=== PATIENT | female | born 1955 | race Caucasian/White ===

== ENCOUNTER 2020-08-07 08:35 | Outpatient (REF) | payer OTHER, SELFPAY ==
[2020-08-07 09:44] LABS: MANUAL DIFF FLAG NO
[2020-08-07 10:05] LABS: Basophils Absolute Auto 0.1 X10*3/uL (0.0-0.2); Basophils Percent Auto 1.1 % (0-2); Eosinophils Absolute Auto 0.2 X10*3/uL (0.0-0.4); Eosinophils Percent Auto 3.2 % (0-4); Hematocrit 37.8 % (37-47); Hemoglobin 11.9 g/dl (12.0-16.0); Imm Gran Abs Auto 0.02 X10*3/uL (0.00-0.03); Imm Gran Pct Auto 0.4 % (0.0-0.4); Mean Corpuscular HGB Conc 31.5 g/dl (31.0-35.0); Mean Corpuscular Hemoglobin 28.3 pg (27.0-33.0); Mean Platelet Volume 10.3 fL (9.4-12.3); Monocytes Absolute Auto 0.4 X10*3/uL (0.1-1.2); Monocytes Percent Auto 7.1 % (2-11); Neutrophils Percent Auto 52.2 % (45-73); Platelet Count 289 X10*3/uL (160-400); Red Cell Distribution Width 13.8 % (11.0-16.0); White Blood Count 5.7 X10*3/uL (4.8-10.8)
[2020-08-07 10:55] LABS: Estimated Average Glucose 117 mg/dL; Hemoglobin A1c % 5.7 %
[2020-08-07 11:21] LABS: Alanine Aminotransferase 13 U/L (0-31); Albumin Level 4.1 g/dL (3.5-5.0); Alkaline Phosphatase 85 U/L (39-117); Anion Gap 12 (12-20); Aspartate Amino Transferase 18 U/L (5-31); Bilirubin Total 0.3 mg/dL (0.0-1.0); Blood Urea Nitrogen 23 mg/dL (9-16); Calcium 9.1 mg/dL (8.4-10.2); Carbon Dioxide 25 mmol/L (22-29); Chloride 107 mmol/L (96-108); Cholesterol 256 mg/dL; Estimated Glomerular Filt Rate > 60; Glucose Fasting 101 mg/dL (60-99); HDL Cholesterol 48 mg/dL; LDL Cholesterol Calculated 160 mg/dl; Potassium 4.2 mmol/l (3.3-5.1); Sodium 140 mmol/L (135-145); Total Protein 7.6 g/dL (6.5-8.0); Triglycerides 243 mg/dL
[2020-08-07 11:30] LABS: Creatinine Urine 223.07 mg/dL; Microalbum/Creatinine Ratio Ur 11.6 ug/mg cr
[2020-08-07 11:31] LABS: TSH reflex Free T4 6.28 mIU/mL (0.32-4.0)
[2020-08-07 12:18] LABS: Free T4 (Free Thyroxine) 0.79 ng/dL (0.71-1.85)
== END 2020-08-07 08:36 | disposition home or self-care (01) ==
LOC: HO.LAB 08:35
PROVIDERS: PCP Physician Assistant; Visit Provider Physician Assistant
DX: Z13.220 Encounter for screening for lipoid disorders (principal)
CPT/HCPCS: 36415; 80053; 80061; 82043; 83036; 84439; 84443; 85025

== ENCOUNTER 2020-09-10 08:43 | Outpatient (REF) | payer OTHER, SELFPAY ==
--- NOTE | 2020-09-10 08:46 | US_ITS ---
EXAMINATION: US ABDOMEN COMPLETE CLINICAL INFORMATION: Right upper quadrant pain. COMPARISON: CT abdomen and pelvis 02/27/2019. TECHNIQUE: Real-time imaging of the abdominal viscera. FINDINGS: PANCREAS: Most the pancreas is obscured by overlying gas. Partially visualized body of the pancreas is homogeneous echotexture. ABDOMINAL AORTA: The proximal, mid, and distal segments are normal in caliber. INFERIOR VENA CAVA: Visualized portions are normal. LIVER: The liver is normal in size. The liver contour is normal. There is increased liver echogenicity. No focal hepatic lesion. There is no intrahepatic biliary duct dilatation seen. GALLBLADDER: Surgically absent. COMMON BILE DUCT: Normal in caliber measuring 0.6 cm in diameter. RIGHT KIDNEY: Normal. No hydronephrosis. No renal calculi or focal parenchymal lesions. The kidney measures 9.5 cm in maximum dimension. LEFT KIDNEY: Normal. No hydronephrosis. No renal calculi or focal parenchymal lesions. The kidney measures 9.3 cm in maximum dimension. SPLEEN: Normal. The spleen measures 9.0 cm in maximum dimension. FREE FLUID: None.. Imaging through the area of right upper quadrant pain where patient complains there is no hernia seen. US/US abdomen complete IMPRESSION: Hepatic steatosis without focal lesions seen. Rest of the abdominal ultrasound is unremarkable.
== END 2020-09-10 08:44 | disposition home or self-care (01) ==
LOC: HO.US 08:43
PROVIDERS: PCP Physician Assistant; Visit Provider Physician Assistant
DX: R10.11 Right upper quadrant pain (principal)
CPT/HCPCS: 76700

== ENCOUNTER 2020-09-30 13:47 | Outpatient (REF) | payer OTHER, SELFPAY | END 2020-09-30 13:48 | disposition home or self-care (01) | LOC: HO.LAB 13:47 | PROVIDERS: PCP Physician Assistant; Visit Provider Internal Medicine | DX: Z20.828 Contact with and (suspected) exposure to other viral communicable diseases (principal) | CPT/HCPCS: C9803; U0003 ==

== ENCOUNTER 2020-10-19 07:39 | Outpatient (REF) | payer OTHER, SELFPAY ==
--- NOTE | 2020-10-19 07:41 | MM_ITS ---
EXAMINATION: MM SCREENING DIGITAL BREAST TOMOSYNTHESIS, BILATERAL CLINICAL INFORMATION: Screening. Asymptomatic. The lifetime risk of breast cancer based on the Tyrer-Cuzick Model is 5%. COMPARISON: Mammography: 01/27/2019, 08/27/2007 TECHNIQUE: Digital breast tomosynthesis is performed in both the craniocaudal and mediolateral oblique views along with computer-aided detection (CAD). Synthesized 2D images are generated from the tomosynthesis. FINDINGS: The breasts are heterogeneously dense, which may obscure small masses (ACR BI-RADS breast composition Category c). There are no significant masses, abnormal calcifications, or other abnormalities. There are no significant changes. The axilla and skin contours are unremarkable. MM/MM tomosynthesis screening BI IMPRESSION: No mammographic evidence of malignancy. ASSESSMENT: BI-RADS 1: Negative RECOMMENDATION: Routine annual mammography screening. This patient's information was entered into a reminder system with a target due date for their next mammogram.
== END 2020-10-19 07:40 | disposition home or self-care (01) ==
LOC: HO.MAMMO 07:39
PROVIDERS: PCP Physician Assistant; Visit Provider Physician Assistant
DX: Z12.31 Encounter for screening mammogram for malignant neoplasm of breast (principal)
CPT/HCPCS: 77063; 77067

== ENCOUNTER 2021-03-03 06:02 | Outpatient (REF) | payer OTHER, SELFPAY ==
[2021-03-03 07:05] LABS: Hematocrit 36.4 % (37-47); Hemoglobin 11.5 g/dl (12.0-16.0); Mean Corpuscular HGB Conc 31.6 g/dl (31.0-35.0); Mean Corpuscular Hemoglobin 27.5 pg (27.0-33.0); Mean Corpuscular Volume 87.1 fL (80-98); Mean Platelet Volume 10.1 fL (9.4-12.3); Platelet Count 284 X10*3/uL (160-400); Red Blood Count 4.18 X10*6/uL (4.20-5.50); Red Cell Distribution Width 14.1 % (11.0-16.0); White Blood Count 6.5 X10*3/uL (4.8-10.8)
[2021-03-03 07:21] LABS: Alanine Aminotransferase 12 U/L (0-31); Albumin Level 4.1 g/dL (3.5-5.0); Alkaline Phosphatase 105 U/L (39-117); Anion Gap 13 (12-20); Aspartate Amino Transferase 17 U/L (5-31); Bilirubin Total 0.2 mg/dL (0.0-1.0); Blood Urea Nitrogen 15 mg/dL (9-16); Calcium 9.1 mg/dL (8.4-10.2); Carbon Dioxide 26 mmol/L (22-29); Chloride 107 mmol/L (96-108); Cholesterol 244 mg/dL; Estimated Glomerular Filt Rate > 60; Glucose Fasting 106 mg/dL (60-99); HDL Cholesterol 45 mg/dL; LDL Cholesterol Calculated 148 mg/dl; Potassium 3.7 mmol/L (3.3-5.1); Sodium 142 mmol/L (135-145); Total Protein 7.4 g/dL (6.5-8.0); Triglycerides 259 mg/dL
[2021-03-03 07:34] LABS: Creatinine Urine 146.62 mg/dL; Microalbum/Creatinine Ratio Ur 7.5 ug/mg cr
[2021-03-03 07:44] LABS: TSH reflex Free T4 9.34 uIU/mL (0.32-4.0)
[2021-03-03 08:23] LABS: Free T4 (Free Thyroxine) 0.84 ng/dL (0.71-1.85)
== END 2021-03-03 06:03 | disposition home or self-care (01) ==
LOC: HO.LAB 06:02
PROVIDERS: PCP Physician Assistant; Visit Provider Physician Assistant
DX: I10 Essential (primary) hypertension (principal); E03.9 Hypothyroidism, unspecified
CPT/HCPCS: 36415; 80053; 80061; 82043; 84439; 84443; 85027

== ENCOUNTER 2021-04-03 02:39 | Emergency (ER) | payer OTHER, SELFPAY ==
--- NOTE | ~2021-04-03 | CT_ITS ---
EXAMINATION: CT ABDOMEN AND PELVIS WITH CONTRAST CLINICAL INFORMATION: Right-sided abdominal pain COMPARISON: 02/27/2019 TECHNIQUE: Multidetector volumetric images were obtained from the superior aspect of the liver through the pubic symphysis following administration 85 mL of Omnipaque 350 intravenous contrast. Sagittal and coronal reformatted images were obtained on the technologist's workstation. Oral contrast: No This CT examination was performed using dose optimization techniques as appropriate, variously including the following: *Automated exposure control *Adjustment of mA and/or kV according to patient size (this includes techniques or standardized protocols for targeted exams where dose is matched to indication/reason for exam; i.e. extremities or head) *Use of iterative reconstruction technique DLP: 552 mGy-cm FINDINGS: LUNG BASES: The visualized lung bases are unremarkable. LIVER, GALLBLADDER, AND BILIARY TREE: The liver is normal in size, shape, and attenuation. No focal hepatic lesion or biliary ductal dilatation is present. Cholecystectomy. PANCREAS: Fatty atrophy. No pancreatic mass or inflammation. SPLEEN: Unremarkable. ADRENAL GLANDS: Unremarkable. KIDNEYS AND URETERS: The kidneys are normal in size, shape, and attenuation. No hydronephrosis, hydroureter, or calculi seen. No perinephric stranding. BLADDER: Unremarkable. GASTROINTESTINAL TRACT: There are multiple loops of ileum demonstrating what appears represent mucosal thickening, hyperemia and areas of submucosal edema suggestive of enteritis. The involved segment of small bowel are largely contiguous, beginning in the left midabdomen, and continuing throughout the ileum. Scattered colonic diverticula without evidence of diverticulitis.. Normal appendix. Small sliding-type hiatal hernia. ABDOMINAL WALL: No significant hernia is appreciated. LYMPH NODES: Normal. VASCULAR: Aorta is atherosclerotic but normal caliber. Patent venous structures. PELVIC VISCERA: Hysterectomy. No adnexal abnormalities. OSSEOUS STRUCTURES: Unremarkable. CT/CT abdomen pelvis w con IMPRESSION: * Multiple loops of ileum demonstrate mild wall thickening, mucosal hyperemia and submucosal edema suggestive of enteritis, which could be infectious or inflammatory nature. * Scattered colonic diverticula without evidence of diverticulitis.
[2021-04-03 02:57] VITALS: BP 178/108; PULSE 106; RESP 16; TEMP 36.8; O2SAT 97; BMI 30.2
[2021-04-03 03:15] VITALS: BP 165/89
--- NOTE | 2021-04-03 03:22 | ED.ABDPAIN ---
HPI - Abdominal Pain General Chief Complaint: Abdominal Pain Stated Complaint: Abd pain/Vomiting Time Seen by Provider: 04/03/21 03:14 Source: patient Mode of arrival: ambulatory History of Present Illness HPI narrative: Is a 65-year-old female with history hypertension and status post cholecystectomy/hernia repair several years ago who presents with acute onset multiple episodes of nonbloody diarrhea at 12:30 p.m. combined with significant abdominal pain. Patient states that she tried to become comfortable but then began having multiple episodes of nonbloody nausea and vomiting. She denies any associated fever, shortness breath, chest pain/palpitations, history of renal colic, or urinary pain/burning/frequency. Related Data Previous Rx's Medication Instructions Recorded famotidine 40 mg tablet 40 mg PO BEDTIME #30 tab 10/04/20 cetirizine 10 mg tablet 10 mg PO DAILY #20 tab 10/30/20 amlodipine 10 mg tablet 10 mg PO DAILY 90 Days #90 tab 02/27/21 levothyroxine 75 mcg tablet 75 mcg PO DAILY 90 Days #90 tab 02/27/21 levothyroxine 100 mcg tablet 100 mcg PO DAILY 30 Days #30 tab 03/03/21 ondansetron HCl [Zofran] 4 mg PO Q8H PRN #7 tab 04/03/21 Allergies Allergy/AdvReac Type Severity Reaction Status Date / Time lisinopril Allergy Unknown shortness Verified 02/27/21 12:03 of breath coconut Allergy Unknown diarrhea, Uncoded 10/04/20 10:57 vomiting Review of Systems Review of Systems Pertinent positives and negatives as stated in HPI 10 point review systems is otherwise negative. Physical Exam Vital Signs: Vital Signs: Last Vital Signs Temp 98.2 F 04/03/21 02:57 Pulse 85 04/03/21 05:51 Resp 18 04/03/21 05:51 BP 122/69 04/03/21 05:51 Pulse Ox 95 04/03/21 05:51 Body Mass Index 30.2 VITAL SIGNS: Reviewed. GENERAL: Well developed, well nourished, in no acute distress. HEAD: Normocephalic/atraumatic EYES: PERRLA, EOMI OROPHARYNX: no oral lesions noted, posterior pharynx clear NECK: Supple, no adenopathy LUNGS: Normal breath sounds. No adventitious sounds or accessory muscle use. SpO2<97> CARDIOVASCULAR: Regular rate and rhythm without noted murmurs ABDOMEN: Soft, tenderness in right abdomen without rebound, non-distended with bowel sounds. . SKIN: Inspection of the skin reveals no rashes NEUROLOGIC: Alert and oriented x 4. Course Course Course Narrative: 65-year-old female with history and clinical presentation suggestive gastroenteritis, renal colic, and less likely diverticulitis, hernia, or SBO. Review of all investigations consistent with gastroenteritis/food poisoning. On further investigation patient states she was the only 1 who had store by chicken soup. On re-evaluation patient is already feeling better and will undergo a p.o. challenge prior to discharge. 0617: On re-evaluation patient feels much better, and has tolerated oral intake. She will be discharged in stable condition. MDM - Abdominal Pain Lab Data Result diagrams: 04/03/21 03:32 04/03/21 03:32 Labs: Lab Results 04/03/21 04/03/21 04/03/21 Range/Units 03:32 03:32 04:21 WBC 12.5 H (4.8-10.8) X10*3/uL RBC 4.86 (4.20-5.50) X10*6/uL Hgb 13.5 (12.0-16.0) g/dl Hct 41.0 (37-47) % MCV 84.4 (80-98) fL MCH 27.8 (27.0-33.0) pg MCHC 32.9 (31.0-35.0) g/dl RDW 14.1 (11.0-16.0) % Plt Count 343 (160-400) X10*3/uL MPV 10.2 (9.4-12.3) fL Immature Gran % (Auto) 0.3 (0.0-0.4) % Neut % (Auto) 65.1 (45-73) % Lymph % (Auto) 27.5 (20-40) % [place] % (Auto) 4.8 (2-11) % Eos % (Auto) 1.7 (0-4) % Baso % (Auto) 0.6 (0-2) % Lymph # (Auto) 3.4 (1.2-4.9) X10*3/uL [place] # (Auto) 0.6 (0.1-1.2) X10*3/uL Eos # (Auto) 0.2 (0.0-0.4) X10*3/uL Baso # (Auto) 0.1 (0.0-0.2) X10*3/uL Abs Immat Gran (auto) 0.04 H (0.00-0.03) X10*3/uL Absolute Neuts (auto) 8.1 (2.0-8.3) X10*3/uL Absolute Nucleated RBC 0.000 (0.0-0.012) X10*3/uL Nucleated RBC % (auto) 0.0 (0.0-0.2) /100WBC Sodium 139 (135-145) mmol/L Potassium 4.0 (3.3-5.1) mmol/L Chloride 105 (96-108) mmol/L Carbon Dioxide 22 (22-29) mmol/L Anion Gap 16 (12-20) BUN 22 H (9-16) mg/dL Creatinine 0.92 (0.5-1.4) mg/dL Estim Creat Clear Calc 56.3 Estimated GFR > 60 Random Glucose 171 H (60-115) mg/dL Lactic Acid 1.9 (0.5-2.0) mmol/L Calcium 9.9 D (8.4-10.2) mg/dL Total Bilirubin 0.3 (0.0-1.0) mg/dL AST 21 (5-31) U/L ALT 18 (0-31) U/L Alkaline Phosphatase 124 H (39-117) U/L Total Protein 8.7 H (6.5-8.0) g/dL Albumin 4.7 (3.5-5.0) g/dL Lipase 42 (8-78) U/L Discharge Plan Discharge Clinical Impression: Gastroenteritis, Food poisoning Patient Disposition: Home, Self-Care Instructions: Gastroenteritis (ED), Food Poisoning (ED) Additional Instructions: Resume all home medications as prescribed. Follow-up with primary care provider in the next 2-3 days for re-evaluation. Return to the ER for acute worsening of symptoms. Prescriptions: New ondansetron HCl [Zofran] 4 mg tablet 4 mg PO Q8H PRN (Reason: nausea and vomiting) Qty: 7 RF: 0 No Action cetirizine 10 mg tablet 10 mg PO DAILY Qty: 20 RF: 3 levothyroxine 100 mcg tablet 100 mcg PO DAILY 30 Days Qty: 30 RF: 1 famotidine [Pepcid] 40 mg tablet 40 mg PO BEDTIME Qty: 30 RF: 2 levothyroxine 75 mcg tablet 75 mcg PO DAILY 90 Days Qty: 90 RF: 1 Hold Instructions: Doctor's Order amlodipine 10 mg tablet 10 mg PO DAILY 90 Days Qty: 90 RF: 1 Referrals: Jorge Madison PA-C [Primary Care Provider] - 2 days Print Language: Malay [facility] Past Medical History Source: nursing notes reviewed Medical History Rash due to allergy Surgical History History of cholecystectomy History of hernia repair Family History Family History Father Stomach cancer Skin cancer Mother Stroke Diabetes Hypertension Past heart attack Sister Diabetes Social History Social History Alcohol intake: never Smoked in Last 30 Days: No Use of substances other than those prescribed or required for medical reasons: No Advance Directives: No Advance Directives Information Provided: No Patient : No
[2021-04-03] MEDS: 0.9 % Sodium Chloride 1,000 ML 999 ML IV (03:27)
[2021-04-03] MEDS: ondansetron HCL 4 MG/2 ML VIAL IVPUSH (03:27)
[2021-04-03] MEDS: Ketorolac Tromethamine 15 MG/ML VIAL IVPUSH (03:27)
[2021-04-03 03:35] LABS: MANUAL DIFF FLAG NO
--- NOTE | 2021-04-03 03:35 | PC.NURSE ---
pt taken to ct.
[2021-04-03 03:36] LABS: Basophils Absolute Auto 0.1 X10*3/uL (0.0-0.2); Basophils Percent Auto 0.6 % (0-2); Eosinophils Absolute Auto 0.2 X10*3/uL (0.0-0.4); Eosinophils Percent Auto 1.7 % (0-4); Hemoglobin 13.5 g/dl (12.0-16.0); Imm Gran Abs Auto 0.04 X10*3/uL (0.00-0.03); Imm Gran Pct Auto 0.3 % (0.0-0.4); Lymphocytes Absolute Auto 3.4 X10*3/uL (1.2-4.9); Lymphocytes Percent Auto 27.5 % (20-40); Mean Corpuscular HGB Conc 32.9 g/dl (31.0-35.0); Mean Corpuscular Hemoglobin 27.8 pg (27.0-33.0); Mean Corpuscular Volume 84.4 fL (80-98); Mean Platelet Volume 10.2 fL (9.4-12.3); Monocytes Absolute Auto 0.6 X10*3/uL (0.1-1.2); Monocytes Percent Auto 4.8 % (2-11); Neutrophils Absolute Auto 8.1 X10*3/uL (2.0-8.3); Neutrophils Percent Auto 65.1 % (45-73); Platelet Count 343 X10*3/uL (160-400); Red Blood Count 4.86 X10*6/uL (4.20-5.50); Red Cell Distribution Width 14.1 % (11.0-16.0); White Blood Count 12.5 X10*3/uL (4.8-10.8)
[2021-04-03] MEDS: iohexoL 350 MG/ML 100 ML INFUS..BTL 85 ML IV (03:46)
[2021-04-03 04:00] VITALS: BP 127/78; PULSE 78; RESP 16; O2SAT 94
[2021-04-03 04:04] LABS: Alanine Aminotransferase 18 U/L (0-31); Albumin Level 4.7 g/dL (3.5-5.0); Alkaline Phosphatase 124 U/L (39-117); Anion Gap 16 (12-20); Aspartate Amino Transferase 21 U/L (5-31); Bilirubin Total 0.3 mg/dL (0.0-1.0); Blood Urea Nitrogen 22 mg/dL (9-16); Calcium 9.9 mg/dL (8.4-10.2); Carbon Dioxide 22 mmol/L (22-29); Chloride 105 mmol/L (96-108); Creatinine Clr Calc Pharmacy 56.3; Estimated Glomerular Filt Rate > 60; Glucose Random 171 mg/dL (60-115); Lipase 42 U/L (8-78); Sodium 139 mmol/L (135-145); Total Protein 8.7 g/dL (6.5-8.0)
[2021-04-03 04:40] LABS: Lactic Acid 1.9 mmol/L (0.5-2.0)
[2021-04-03 04:54] VITALS: RESP 16
[2021-04-03 05:51] VITALS: BP 122/69; PULSE 85; RESP 18; O2SAT 95
== END 2021-04-03 06:28 | disposition home or self-care (01) ==
PROVIDERS: Emergency Provider Student in an Organized Health Care Education/Training Program; PCP Physician Assistant
DX: A05.9 Bacterial foodborne intoxication, unspecified (principal); I10 Essential (primary) hypertension; Z79.899 Other long term (current) drug therapy; Z90.89 Acquired absence of other organs
CPT/HCPCS: 36415; 74177; 80053; 83605; 83690; 85025; 96361; 96374; 96375; 99284; J1885; J2405; Q9967

== ENCOUNTER 2021-11-03 13:30 | Outpatient (REF) | payer MEDICARE, SELFPAY ==
--- NOTE | ~2021-11-03 | MM_ITS ---
EXAMINATION: MM SCREENING DIGITAL BREAST TOMOSYNTHESIS, BILATERAL CLINICAL INFORMATION: Screening. Asymptomatic. The lifetime risk of breast cancer based on the Tyrer-Cuzick Model is 4%. COMPARISON: Mammography: 10/19/2020, 01/27/2019, 08/27/2007 TECHNIQUE: Digital breast tomosynthesis is performed in both the craniocaudal and mediolateral oblique views along with computer-aided detection (CAD). Synthesized 2D images are generated from the tomosynthesis. FINDINGS: The breasts are heterogeneously dense, which may obscure small masses (ACR BI-RADS breast composition Category c). There are no significant masses, abnormal calcifications, or other abnormalities. MM/MM tomosynthesis screening BI IMPRESSION: No mammographic evidence of malignancy. ASSESSMENT: BI-RADS 1: Negative RECOMMENDATION: Routine annual mammography screening. This patient's information was entered into a reminder system with a target due date for their next mammogram.
== END 2021-11-03 13:31 | disposition home or self-care (01) ==
LOC: HO.MAMMO 13:30
PROVIDERS: PCP Physician Assistant; Visit Provider Physician Assistant
DX: Z12.31 Encounter for screening mammogram for malignant neoplasm of breast (principal)
CPT/HCPCS: 77063; 77067

== ENCOUNTER 2021-12-25 14:16 | Outpatient (REF) | payer MEDICARE, SELFPAY ==
[2021-12-25 15:41] LABS: MANUAL DIFF FLAG NO
[2021-12-25 15:56] LABS: Basophils Absolute Auto 0.1 X10*3/uL (0.0-0.2); Basophils Percent Auto 0.7 % (0-2); Eosinophils Absolute Auto 0.1 X10*3/uL (0.0-0.4); Hematocrit 36.6 % (37.0-47.0); Hemoglobin 11.8 g/dl (12.0-16.0); Imm Gran Abs Auto 0.01 X10*3/uL (0.00-0.03); Imm Gran Pct Auto 0.1 % (0.0-0.4); Lymphocytes Absolute Auto 2.6 X10*3/uL (1.2-4.9); Lymphocytes Percent Auto 37.2 % (20-40); Mean Corpuscular HGB Conc 32.2 g/dl (31.0-35.0); Mean Corpuscular Hemoglobin 28.3 pg (27.0-33.0); Mean Corpuscular Volume 87.8 fL (80.0-98.0); Mean Platelet Volume 10.3 fL (9.4-12.3); Monocytes Absolute Auto 0.4 X10*3/uL (0.1-1.2); Monocytes Percent Auto 6.2 % (2-11); Neutrophils Absolute Auto 3.7 x10*3/uL (2.0-8.3); Neutrophils Percent Auto 53.8 % (45-73); Platelet Count 277 X10*3/uL (160-400); Red Blood Count 4.17 X10*6/uL (4.20-5.50); Red Cell Distribution Width 14.2 % (11.0-16.0); White Blood Count 6.9 X10*3/uL (4.8-10.8)
[2021-12-25 16:21] LABS: Alanine Aminotransferase 14 U/L (0-31); Albumin Level 4.1 g/dL (3.5-5.0); Alkaline Phosphatase 105 U/L (39-117); Anion Gap 12 (12-20); Aspartate Amino Transferase 22 U/L (5-31); Bilirubin Total 0.3 mg/dL (0.0-1.0); Blood Urea Nitrogen 18 mg/dL (9-16); C Reactive Protein 0.49 mg/dL (< or = 0.50); Calcium 9.6 mg/dL (8.4-10.2); Carbon Dioxide 26 mmol/L (22-29); Chloride 106 mmol/L (96-108); Estimated Glomerular Filt Rate > 60; Glucose Random 113 mg/dL (60-115); Potassium 4.1 mmol/L (3.3-5.1); Sodium 140 mmol/L (135-145); Total Protein 7.5 g/dL (6.5-8.0)
[2021-12-25 16:41] LABS: TSH reflex Free T4 2.15 uIU/mL (0.32-4.0); Thyroid Stimulating Hormone 2.37 uIU/mL (0.32-4.0)
[2021-12-25 16:53] LABS: Erythrocyte Sedimentation Rate 26 MM/HR (0-20)
[2021-12-25 17:11] LABS: Creatinine Urine 146.19 mg/dL; Microalbum/Creatinine Ratio Ur 10.2 ug/mg cr
[2021-12-26 21:01] LABS: Transglutaminase IgA <1.0 U/mL
[2021-12-31 16:37] LABS: Endomysial IgA Antibody Negative (Negative)
== END 2021-12-25 14:17 | disposition home or self-care (01) ==
LOC: HO.LAB 14:16
PROVIDERS: PCP Physician Assistant; Visit Provider Physician Assistant
DX: E03.9 Hypothyroidism, unspecified (principal); I10 Essential (primary) hypertension; K52.9 Noninfective gastroenteritis and colitis, unspecified; R11.0 Nausea; K59.09 Other constipation
CPT/HCPCS: 36415; 80053; 82043; 84443; 85025; 85652; 86140; 86231; 86364; 99202

== ENCOUNTER 2021-12-26 09:59 | Outpatient (REF) | payer MEDICARE, SELFPAY ==
[2022-01-01 22:02] LABS: Calprotectin, Fecal 11 mcg/g
== END 2021-12-26 10:00 | disposition home or self-care (01) ==
LOC: HO.LNP 09:59
PROVIDERS: Visit Provider Physician Assistant
DX: R19.7 Diarrhea, unspecified (principal)
CPT/HCPCS: 83993

== ENCOUNTER 2022-04-18 21:01 | Emergency (ER) | payer MEDICARE, MEDICAID, SELFPAY ==
--- NOTE | ~2022-04-18 | CT_ITS ---
EXAMINATION: CT ABDOMEN AND PELVIS WITHOUT CONTRAST CLINICAL INFORMATION: Left lower abdominal pain. Rule out diverticulitis. COMPARISON: 04/03/2021 TECHNIQUE: Multidetector volumetric imaging was performed from the superior aspect of the liver through the pubic symphysis. Sagittal and coronal reformatted images were obtained on the technologist's workstation. This CT examination was performed using dose optimization techniques as appropriate, variously including the following: *Automated exposure control *Adjustment of mA and/or kV according to patient size (this includes techniques or standardized protocols for targeted exams where dose is matched to indication/reason for exam; i.e. extremities or head) *Use of iterative reconstruction technique DLP: 620 mGy-cm FINDINGS: LUNG BASES: The visualized lung bases are unremarkable. LIVER, GALLBLADDER, AND BILIARY TREE: The liver is normal in size, shape, and attenuation. No focal hepatic lesion or biliary ductal dilatation is present. Cholecystectomy. PANCREAS: Mild atrophy with no focal abnormality. SPLEEN: Unremarkable. ADRENAL GLANDS: Unremarkable. KIDNEYS AND URETERS: The kidneys are normal in size, shape, and attenuation. No hydronephrosis, hydroureter, or calculi seen. No perinephric stranding. BLADDER: Unremarkable. GASTROINTESTINAL TRACT: The stomach is unremarkable. Normal caliber small bowel. No obstruction. Normal appendix. There is colonic diverticulosis present. Wall thickening at the descending colon with adjacent inflammation, consistent with diverticulitis. No free air or free fluid. ABDOMINAL WALL: No significant hernia is appreciated. Prior ventral abdominal wall hernia repair. LYMPH NODES: Normal. VASCULAR: Normal caliber aorta with mild atherosclerotic calcification. PELVIC VISCERA: The uterus and adnexa are unremarkable. OSSEOUS STRUCTURES: No acute or suspicious osseous abnormality. CT/CT abdomen pelvis wo con IMPRESSION: Acute diverticulitis of the descending colon. No free air or fluid collection. Fleischner guidelines were followed.
[2022-04-18 21:10] VITALS: BP 185/89; PULSE 93; RESP 22; TEMP 36.8; O2SAT 96; BMI 30.2
[2022-04-18 21:23] LABS: MANUAL DIFF FLAG NO
[2022-04-18 21:32] LABS: Basophils Absolute Auto 0.1 X10*3/uL (0.0-0.2); Basophils Percent Auto 0.5 % (0-2); Eosinophils Absolute Auto 0.2 X10*3/uL (0.0-0.4); Eosinophils Percent Auto 1.9 % (0-4); Hematocrit 34.4 % (37.0-47.0); Hemoglobin 11.4 g/dl (12.0-16.0); Imm Gran Abs Auto 0.03 X10*3/uL (0.00-0.03); Imm Gran Pct Auto 0.3 % (0.0-0.4); Lymphocytes Absolute Auto 3.4 X10*3/uL (1.2-4.9); Lymphocytes Percent Auto 35.1 % (20-40); Mean Corpuscular HGB Conc 33.1 g/dl (31.0-35.0); Mean Corpuscular Hemoglobin 28.7 pg (27.0-33.0); Mean Corpuscular Volume 86.6 fL (80.0-98.0); Mean Platelet Volume 9.9 fL (9.4-12.3); Monocytes Absolute Auto 0.5 X10*3/uL (0.1-1.2); Monocytes Percent Auto 4.6 % (2-11); Neutrophils Absolute Auto 5.6 x10*3/uL (2.0-8.3); Neutrophils Percent Auto 57.6 % (45-73); Platelet Count 286 X10*3/uL (160-400); Red Blood Count 3.97 X10*6/uL (4.20-5.50); Red Cell Distribution Width 14.1 % (11.0-16.0); White Blood Count 9.8 X10*3/uL (4.8-10.8)
[2022-04-18 21:39] LABS: Appearance Urine CLEAR; Color Urine YELLOW; Glucose Urine UA NEG (NEG); Leukocyte Esterase Urine TRACE (NEG); Nitrite Urine NEG (NEG); Specific Gravity - Urine <= 1.005 (1.005-1.025); UACC Culture Trigger NO; Urine Blood TRACE (NEG); Urine Ketones NEG (NEG); Urine Protein NEG (NEG-TRACE)
[2022-04-18 21:53] LABS: Alanine Aminotransferase 15 U/L (0-31); Albumin Level 4.1 g/dL (3.5-5.0); Alkaline Phosphatase 100 U/L (39-117); Anion Gap 13 (12-20); Aspartate Amino Transferase 19 U/L (5-31); Bilirubin Total 0.3 mg/dL (0.0-1.0); Blood Urea Nitrogen 12 mg/dL (9-16); Calcium 8.8 mg/dL (8.4-10.2); Carbon Dioxide 20 mmol/L (22-29); Chloride 106 mmol/L (96-108); Creatinine Clr Calc Pharmacy 60.1; Estimated Glomerular Filt Rate > 60; Glucose Random 159 mg/dL (60-115); Potassium 3.6 mmol/L (3.3-5.1); Sodium 135 mmol/L (135-145); Total Protein 7.6 g/dL (6.5-8.0)
[2022-04-18 22:01] LABS: Bacteria Urine TRACE /LPF; RBC Urine 0-2 /HPF (0); Squamous Epithelial Cell Urine TRACE /LPF; WBC Urine 0-2 /HPF (0-4)
--- NOTE | 2022-04-19 01:13 | ED.ABDPAIN ---
HPI - Abdominal Pain General Chief Complaint: Abdominal Pain Stated Complaint: L side pain for 24 hr, diarrhea Time Seen by Provider: 04/19/22 01:12 Source: patient Mode of arrival: ambulatory Limitations: no limitations History of Present Illness HPI narrative: 66-year-old female came in for evaluation of left lower quadrant pain. Pain started 2 days ago as a dull aching pain to the left lower quadrant pain is constant, no relieving factor, no aggravating factor, pain was associated with nonbloody watery diarrhea and nausea with vomiting, but no fever. Pain is dull aching pain severe 07/27. Never had similar pain in the past. Patient was past surgical history significant for cholecystectomy and right hernia repair. Related Data Previous Rx's Medication Instructions Recorded bisacodyl 5 mg tablet,delayed 10 mg PO ONCE colonoscopy prep 1 12/25/21 release (Dulcolax (bisacodyl)) day #2 tabs loperamide 2 mg capsule (Imodium 2 mg PO Q6H PRN loose stool #30 12/25/21 A-D) caps polyethylene glycol 3350 17 238 g PO ONCE 1 day #238 grams 12/25/21 gram/dose oral powder (Miralax) hydrocortisone 2.5 % topical cream 1 appl MA BEDTIME PRN hemorrhoids 12/26/21 with perineal applicator #30 grams (Proctosol HC) triamcinolone acetonide 0.1 % 1 appl topical BID 30 days #80 01/29/22 topical cream grams levothyroxine 100 mcg tablet 100 mcg PO DAILY #90 tabs 02/26/22 amlodipine 10 mg tablet 10 mg PO DAILY 90 days #90 tabs 04/01/22 ciprofloxacin HCl 500 mg tablet 500 mg PO BID #14 tabs 04/19/22 (Cipro) metronidazole 500 mg tablet 500 mg PO BID 14 days #28 tabs 04/19/22 Allergies Allergy/AdvReac Type Severity Reaction Status Date / Time lisinopril Allergy Unknown shortness Verified 04/18/22 21:10 of breath coconut Allergy Unknown diarrhea, Uncoded 04/18/22 21:10 vomiting Review of Systems Review of Systems All other systems are reviewed and are negative Constitutional: Reports as per HPI and Reports no additional constitutional complaints Eyes: Reports as per HPI and Reports no additional eye complaints Reports system reviewed and no additional complaints, except as documented Cardiovascular: Reports as per HPI and Reports no additional cardiovascular complaints Respiratory: Reports as per HPI and Reports no additional respiratory complaints Gastrointestinal: Reports as per HPI and Reports no additional gastrointestinal complaints Genitourinary: Reports no additional female genitourinary complaints Musculoskeletal: Reports no additional musculoskeletal complaints Skin/Breast: Reports system reviewed and no additional complaints, except as docu Psychiatric: Reports no additional psychiatric complaints Endocrine: Reports no additional endocrine complaints Hematologic/Lymphatic: Reports no additional hematologic/lymphatic complaints Allergic/Immunologic: Reports no additional allergic/immunologic complaints Reports system reviewed and no additional complaints, except as documented and Reports Abnormal speech present [facility] Past Medical History Medical History Abnormal CT of the abdomen Hypothyroid IBS (irritable bowel syndrome) Rash due to allergy Surgical History History of cholecystectomy History of hernia repair Family History Family History Father Stomach cancer Skin cancer Mother Stroke Diabetes Hypertension Past heart attack Sister Diabetes Daughter Colon cancer Social History Social History Housing: House Alcohol intake: never Patient Tobacco Use Status: Never used Tobacco Tobacco use type: Cigarette e-Cigarette/Vaping Use: Never Used Second Hand Smoke Exposure: No Advance Directives: No Advance Directives Information Provided: Yes Current occupational status: retired Cognitive needs: No Hearing needs: No Vision needs: Yes (Pt wears glasses.) Physical Exam ED Vital Signs: Vital Signs - 24 hr 04/18/22 21:10 04/19/22 02:00 Temperature 98.3 F 98.1 F Pulse Rate 93 76 Respiratory Rate 22 H 16 Blood Pressure 185/89 H 152/83 H Pulse Oximetry 96 99 Oxygen Delivery Method Room Air Room Air BMI result Body Mass Index 30.2 Vital signs have been reviewed as appeared to be correct. Blood pressure elevated. Heart rate normal. Respiration rate normal. Temperature normal. Oxygen saturation normal. Appearance: Alert. Oriented X3. No acute distress. Head: Normal external exam. Normocephalic. Atraumatic. No [place] signs noted. No raccoon eyes noted Eyes: PERRLA. EOMI. Conjunctiva and sclera normal. Eyelids normal. ENT: TM's Normal. Pharynx normal. Uvula midline. Moist mucous membranes. No trismus noted. No drooling noted. No muffled voice noted. Neck: Normal inspection. Neck supple. FROM. No adenopathy. Thyroid Normal. No meningeal signs. No neck mass noted. CVS: Normal heart rate and rhythm. Heart sound normal. No murmurs noted. Pulses normal throughout. Respiratory: No respiratory distress. Painless inspiration. Breath sounds normal. No wheezes/rales/rhonchi noted. Chest nontender. No accessory muscle usage noted or decreased air movement noted. Abdomen: Soft, mild left lower quadrant tenderness, no rebound tenderness, no guarding.. Bowel sounds normal in all 4 quadrants. No distention noted. No organomegaly noted. No visible injury noted. Back: No CVA tenderness. Full range of motion noted. Skin: Skin warm and dry. Normal skin color. Normal skin turgor. No rashes/lesions/lacerations noted. Extremities: No lower extremity edema. Extremities exhibit normal range of motion. Extremities nontender. Neuro: Oriented X 3. Cranial nerve exam: II-XII are grossly intact No motor deficit. No sensory deficit. Reflexes normal. Course Course Course Narrative: Assessment and plan. 66-year-old female came in with left lower quadrant abdominal pain, CT of the abdomen pelvis revealed diverticulitis, patient otherwise appears stable with stable vital signs. 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 MDM - Abdominal Pain Lab Data Attestation: I reviewed the patient's lab results. Result diagrams: 04/18/22 21:18 04/18/22 21:18 Labs: Lab Results 04/18/22 04/18/22 04/18/22 Range/Units 21:18 21:18 21:30 WBC 9.8 (4.8-10.8) X10*3/uL RBC 3.97 L (4.20-5.50) X10*6/uL Hgb 11.4 L (12.0-16.0) g/dl Hct 34.4 L (37.0-47.0) % MCV 86.6 (80.0-98.0) fL MCH 28.7 (27.0-33.0) pg MCHC 33.1 (31.0-35.0) g/dl RDW 14.1 (11.0-16.0) % Plt Count 286 (160-400) X10*3/uL MPV 9.9 (9.4-12.3) fL Immature Gran % (Auto) 0.3 (0.0-0.4) % Neut % (Auto) 57.6 (45-73) % Lymph % (Auto) 35.1 (20-40) % [place] % (Auto) 4.6 (2-11) % Eos % (Auto) 1.9 (0-4) % Baso % (Auto) 0.5 (0-2) % Lymph # (Auto) 3.4 (1.2-4.9) X10*3/uL [place] # (Auto) 0.5 (0.1-1.2) X10*3/uL Eos # (Auto) 0.2 (0.0-0.4) X10*3/uL Baso # (Auto) 0.1 (0.0-0.2) X10*3/uL Abs Immat Gran (auto) 0.03 (0.00-0.03) X10*3/uL Absolute Neuts (auto) 5.6 (2.0-8.3) x10*3/uL Absolute Nucleated RBC 0.000 (0.0-0.012) X10*3/uL Nucleated RBC % (auto) 0.0 (0.0-0.2) /100WBC Sodium 135 (135-145) mmol/L Potassium 3.6 (3.3-5.1) mmol/L Chloride 106 (96-108) mmol/L Carbon Dioxide 20 L (22-29) mmol/L Anion Gap 13 (12-20) BUN 12 (9-16) mg/dL Creatinine 0.85 (0.5-1.4) mg/dL Estim Creat Clear Calc 60.1 Estimated GFR > 60 Random Glucose 159 H (60-115) mg/dL Calcium 8.8 D (8.4-10.2) mg/dL Total Bilirubin 0.3 (0.0-1.0) mg/dL AST 19 (5-31) U/L ALT 15 (0-31) U/L Alkaline Phosphatase 100 (39-117) U/L Total Protein 7.6 (6.5-8.0) g/dL Albumin 4.1 (3.5-5.0) g/dL Urine Color YELLOW Urine Appearance CLEAR Urine pH 6.0 (5.0-8.0) Ur Specific [place] <= 1.005 (1.005-1.025) Urine Protein NEG (NEG-TRACE) MG/DL Urine Glucose (UA) NEG (NEG) MG/DL Urine Ketones NEG (NEG) MG/DL Urine Blood TRACE (NEG) Urine Nitrite NEG (NEG) Ur Leukocyte Esterase TRACE H (NEG) Urine RBC 0-2 (0) /HPF Urine WBC 0-2 (0-4) /HPF Ur Squamous Epith Cells TRACE /LPF Urine Bacteria TRACE /LPF Stool Occult Blood (NEGATIVE) 04/19/22 Range/Units 01:25 WBC (4.8-10.8) X10*3/uL RBC (4.20-5.50) X10*6/uL Hgb (12.0-16.0) g/dl Hct (37.0-47.0) % MCV (80.0-98.0) fL MCH (27.0-33.0) pg MCHC (31.0-35.0) g/dl RDW (11.0-16.0) % Plt Count (160-400) X10*3/uL MPV (9.4-12.3) fL Immature Gran % (Auto) (0.0-0.4) % Neut % (Auto) (45-73) % Lymph % (Auto) (20-40) % [place] % (Auto) (2-11) % Eos % (Auto) (0-4) % Baso % (Auto) (0-2) % Lymph # (Auto) (1.2-4.9) X10*3/uL [place] # (Auto) (0.1-1.2) X10*3/uL Eos # (Auto) (0.0-0.4) X10*3/uL Baso # (Auto) (0.0-0.2) X10*3/uL Abs Immat Gran (auto) (0.00-0.03) X10*3/uL Absolute Neuts (auto) (2.0-8.3) x10*3/uL Absolute Nucleated RBC (0.0-0.012) X10*3/uL Nucleated RBC % (auto) (0.0-0.2) /100WBC Sodium (135-145) mmol/L Potassium (3.3-5.1) mmol/L Chloride (96-108) mmol/L Carbon Dioxide (22-29) mmol/L Anion Gap (12-20) BUN (9-16) mg/dL Creatinine (0.5-1.4) mg/dL Estim Creat Clear Calc Estimated GFR Random Glucose (60-115) mg/dL Calcium (8.4-10.2) mg/dL Total Bilirubin (0.0-1.0) mg/dL AST (5-31) U/L ALT (0-31) U/L Alkaline Phosphatase (39-117) U/L Total Protein (6.5-8.0) g/dL Albumin (3.5-5.0) g/dL Urine Color Urine Appearance Urine pH (5.0-8.0) Ur Specific [place] (1.005-1.025) Urine Protein (NEG-TRACE) MG/DL Urine Glucose (UA) (NEG) MG/DL Urine Ketones (NEG) MG/DL Urine Blood (NEG) Urine Nitrite (NEG) Ur Leukocyte Esterase (NEG) Urine RBC (0) /HPF Urine WBC (0-4) /HPF Ur Squamous Epith Cells /LPF Urine Bacteria /LPF Stool Occult Blood NEGATIVE (NEGATIVE) Imaging Data Abdomen and pelvis CT.: Attestation: I personally reviewed and interpreted this imaging study as follows: Radiologist's impression: Acute diverticulitis of the descending colon. No free air or fluid collection.? ? Discharge Plan Discharge Clinical Impression: Diverticulitis, Abdominal pain Patient Disposition: Home, Self-Care Instructions: Diverticulitis (ED) Prescriptions: New ciprofloxacin HCl [Cipro] 500 mg tablet 500 mg PO BID Qty: 14 0RF metronidazole 500 mg tablet 500 mg PO BID 14 Days Qty: 28 0RF No Action levothyroxine 100 mcg tablet 100 mcg PO DAILY Qty: 90 1RF amlodipine 10 mg tablet 10 mg PO DAILY 90 Days Qty: 90 1RF triamcinolone acetonide 0.1 % cream 1 appl topical BID 30 Days Qty: 80 1RF bisacodyl [Dulcolax (bisacodyl)] 5 mg tablet,delayed release (DR/EC) 10 mg PO ONCE 1 Days Qty: 2 0RF Rx Instructions: Take 2 tablets by mouth at 12:00pm the day before your procedure. polyethylene glycol 3350 [Miralax] 17 gram/dose powder 238 g PO ONCE 1 Days Qty: 238 0RF Rx Instructions: Take as directed by mouth the day before your procedure. loperamide [Imodium A-D] 2 mg capsule 2 mg PO Q6H PRN (Reason: loose stool) Qty: 30 0RF Rx Instructions: Take 2 cap after 1st loose stool- One caplet after each subsequent loose stools No more than 4 caps in a 24 hour. hydrocortisone [Proctosol HC] 2.5 % cream with perineal applicator 1 appl MA BEDTIME PRN (Reason: hemorrhoids) Qty: 30 3RF Referrals: Jorge Madison PA-C [Primary Care Provider] - Zenon Dasilva MD [Physician] -
[2022-04-19 01:31] LABS: OBS Int Ctl Valid YES; OBS1 NEGATIVE (NEGATIVE)
[2022-04-19 02:00] VITALS: BP 152/83; PULSE 76; RESP 16; TEMP 36.7; O2SAT 99
== END 2022-04-19 04:05 | disposition home or self-care (01) ==
PROVIDERS: Emergency Provider Emergency Medicine; PCP Physician Assistant
DX: K57.32 Diverticulitis of large intestine without perforation or abscess without bleeding (principal); R10.32 Left lower quadrant pain; Z79.899 Other long term (current) drug therapy
CPT/HCPCS: 36415; 74176; 80053; 81001; 82272; 85025; 99283; 99284

== ENCOUNTER 2022-11-09 13:30 | Outpatient (REF) | payer MEDICARE, MEDICAID, SELFPAY ==
--- NOTE | ~2022-11-09 | MM_ITS ---
EXAMINATION: MM SCREENING DIGITAL BREAST TOMOSYNTHESIS, BILATERAL CLINICAL INFORMATION: Screening. Asymptomatic. The lifetime risk of breast cancer based on the Tyrer-Cuzick Model is 5.0%. COMPARISON: Mammography: November 03, 2021 and studies dating back to August 27, 2007 TECHNIQUE: Digital breast tomosynthesis is performed in both the craniocaudal and mediolateral oblique views along with computer-aided detection (CAD). Synthesized 2D images are generated from the tomosynthesis. FINDINGS: The breasts are heterogeneously dense, which may obscure small masses (ACR BI-RADS breast composition Category c). There are no significant masses, abnormal calcifications, or other abnormalities. MM/MM tomosynthesis screening BI IMPRESSION: No significant changes ASSESSMENT: BI-RADS 1: Negative RECOMMENDATION: Routine annual mammography screening. This patient's information was entered into a reminder system with a target due date for their next mammogram.
== END 2022-11-09 13:31 | disposition home or self-care (01) ==
LOC: HO.MAMMO 13:30
PROVIDERS: PCP Physician Assistant; Visit Provider Physician Assistant
DX: Z12.31 Encounter for screening mammogram for malignant neoplasm of breast (principal)
CPT/HCPCS: 77063; 77067

== ENCOUNTER 2023-02-10 06:05 | Outpatient (REF) | payer MEDICARE, MEDICAID, SELFPAY ==
--- NOTE | ~2023-02-10 | XR_ITS ---
EXAMINATION: XR LUMBOSACRAL SPINE CLINICAL INFORMATION: Low back pain COMPARISON: CT abdomen of 04/19/2022. TECHNIQUE: Three views of the lumbosacral spine. FINDINGS: There are 5 nonrib bearing lumbar vertebra. There is mild scoliosis convex right. No acute fracture, spondylolisthesis, or spondylolysis identified. There is significant joint space narrowing seen at the L4-L5, T12-L1 disc space level. Facet arthropathy is present right side L4-L5 and left L5-S1. Pedicles appear intact. Mesh is present. Numerous surgical clips are seen within the right upper quadrant. There is some marginal spurring of the sacroiliac joints without definite fusion or widening. XR/XR lumbar spine 2-3V IMPRESSION: Multilevel degenerative disc disease and facet arthropathy without evidence of acute fracture, spondylolisthesis, or spondylolysis.
[2023-02-10 07:19] LABS: Hematocrit 38.6 % (37.0-47.0); Hemoglobin 12.4 g/dl (12.0-16.0); Mean Corpuscular HGB Conc 32.1 g/dl (31.0-35.0); Mean Corpuscular Hemoglobin 28.1 pg (27.0-33.0); Mean Corpuscular Volume 87.5 fL (80.0-98.0); Mean Platelet Volume 10.5 fL (9.4-12.3); Platelet Count 284 X10*3/uL (160-400); Red Blood Count 4.41 X10*6/uL (4.20-5.50); Red Cell Distribution Width 13.8 % (11.0-16.0); White Blood Count 7.1 X10*3/uL (4.8-10.8)
[2023-02-10 07:45] LABS: Alanine Aminotransferase 20 U/L (0-31); Albumin Level 4.1 g/dL (3.5-5.0); Alkaline Phosphatase 97 U/L (39-117); Anion Gap 14 (12-20); Aspartate Amino Transferase 25 U/L (5-31); Bilirubin Total 0.4 mg/dL (0.0-1.0); Blood Urea Nitrogen 13 mg/dL (9-16); Calcium 8.9 mg/dL (8.4-10.2); Carbon Dioxide 27 mmol/L (22-29); Chloride 106 mmol/L (96-108); Cholesterol 268 mg/dL; Estimated Glomerular Filt Rate > 60; Glucose Fasting 109 mg/dL (60-99); HDL Cholesterol 48 mg/dL; LDL Cholesterol Calculated 171 mg/dl; Potassium 3.8 mmol/L (3.3-5.1); Sodium 143 mmol/L (135-145); Total Protein 7.4 g/dL (6.5-8.0); Triglycerides 247 mg/dL
[2023-02-10 08:03] LABS: TSH reflex Free T4 6.63 uIU/mL (0.32-4.0)
[2023-02-10 09:03] LABS: Creatinine Urine 203.51 mg/dL; Microalbum/Creatinine Ratio Ur 12.2 ug/mg cr
[2023-02-10 09:17] LABS: Free T4 (Free Thyroxine) 0.86 ng/dL (0.71-1.85)
== END 2023-02-10 06:06 | disposition home or self-care (01) ==
LOC: HO.LAB 06:05
PROVIDERS: PCP Physician Assistant; Visit Provider Physician Assistant
DX: I10 Essential (primary) hypertension (principal); E03.9 Hypothyroidism, unspecified; M54.50 Low back pain, unspecified
CPT/HCPCS: 36415; 72100; 80053; 80061; 82043; 84439; 84443; 85027

== ENCOUNTER 2023-04-26 14:18 | Outpatient (AMB) | payer MEDICARE, MEDICAID, SELFPAY ==
--- NOTE | 2023-04-26 14:22 | A.OFFVIS_ITS ---
Intake Vital Signs 04/26/23 14:23 Height 5 ft 1 in Weight 156 lb BMI 29.5 BP 124/58 L Blood Pressure Location Lt brachial Position Sitting Pulse 84 Intake Visit Reasons: follow up/ family polyps hx Intake Note: Patient follow up for lab and CT scan results. Patient cc: abdominal pain/bloating, GERD, diarrhea and no appetite. Meteorological Observer Required: No Accompanied by: Self / Same As Patient Allergies lisinopril Allergy (Unknown, Verified 04/26/23 14:22) shortness of breath coconut Allergy (Unknown, Uncoded 02/04/23 10:41) diarrhea, vomiting Medication List - Last Reconciled 05/03/23 by Fiona Gilbert PA-C amlodipine 10 mg PO DAILY 90 days bisacodyl (Dulcolax (bisacodyl)) 10 mg (2 x 5 mg) PO ONCE 1 day hydrocortisone 2.5% (Proctosol HC) 1 appl [place] BEDTIME PRN levothyroxine 125 mcg PO DAILY 30 days loperamide (Imodium A-D) 2 mg PO Q6H PRN meloxicam 15 mg PO DAILY 30 days methylcellulose (laxative) (Citrucel Sugar Free oral powder) 2 grams PO DAILY PRN omeprazole 20 mg PO DAILY polyethylene glycol 3350 (Miralax) 238 grams PO ONCE PRN 1 day triamcinolone acetonide 0.1% 1 appl topical BID 30 days HPI HPI Comments History of Present Illness Details A 67 y/o female with chronic abdominal pain- diarrhea- acid reflux- poor appitite- acid intermittent- not taking any medications Had an abnormal CT-04/2022- acute diverticulitis- 3-4 BM QD- no blood- no abdominal pain. Has taken Imodium in the past that was helpful however she is currently not taking it. 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 [facility] Medical History Abnormal CT of the abdomen Hypothyroid IBS (irritable bowel syndrome) Rash due to allergy Surgical History History of cholecystectomy History of hernia repair Family History Father Stomach cancer Skin cancer Mother Stroke Diabetes Hypertension Past heart attack Sister Diabetes Daughter Colon cancer Social History Housing: House Alcohol intake: never Patient Tobacco Use Status: Never used Tobacco Tobacco use type: Cigarette e-Cigarette/Vaping Use: Never Used Second Hand Smoke Exposure: No service: No Current occupational status: retired Cognitive needs: No Hearing needs: No Vision needs: Yes (Pt wears glasses.) Review of Systems Const All systems reviewed & are unremarkable except as noted in HPI and below Physical Exam Vital Signs: Last Vital Signs Pulse 84 04/26/23 14:23 BP 124/58 L 04/26/23 14:23 BMI result Body Mass Index 29.5 Const General: cooperative, comfortable and no acute distress Orientation/consciousness: patient oriented x3 Limitations: no limitations Eyes Sclerae: sclerae normal Resp Effort & Inspection: normal respiratory effort and able to speak in complete sentences Auscultation: clear to auscultation bilaterally and no wheezes Cardio Rate: regular rate Rhythm: regular rhythm Heart sounds: S1 normal heart sound present and S2 normal heart sound present Skin General skin exam: no rashes or lesions noted Neuro General: patient oriented x3 Extrem General: Yes full ROM Psych Speech and movement: Normal speech and movement present Affect: normal affect Attitude: cooperative Results Reviewed Results Reviewed: 01/2023- no anemia- normal liver enzymes Assessment & Plan Assessment & Plan (1) Chronic diarrhea: Comment: monitor- imodium Code(s): K52.9 - Noninfective gastroenteritis and colitis, unspecified (2) Nausea: Comment: EGD r/o-PUD, nonulcer dyspepsia, esophagitis, other endoscopic findings to account for symptoms. Code(s): R11.0 - Nausea (3) Acid reflux: Code(s): K21.9 - Gastro-esophageal reflux disease without esophagitis Plan: Reviewed reflux precautions, ppi daily avoid culprits (4) Family history of colon cancer: Comment: Daughter 30's Code(s): Z80.0 - Family history of malignant neoplasm of digestive organs Plan EGD/ colon- MG split Fiber supplement Orders: Orders EGD/[place] Combo - GI Use Only 04/26/23 K52.9 - Noninfective gastroenteritis and colitis, unspecified, R11.0 - Nausea Medications: New polyethylene glycol 3350 (Miralax) Take as directed by mouth the day before your procedure. 238 grams PO ONCE PRN 238 grams 0RF laxative effect 1 day omeprazole 20 mg PO DAILY 30 caps 5RF methylcellulose (laxative) (Citrucel Sugar Free oral powder) 2 grams PO DAILY PRN 479 grams 2RF constipation Refilled bisacodyl (Dulcolax (bisacodyl)) Take 2 tablets by mouth at 12:00pm the day before your procedure. 10 mg (2 x 5 mg) PO ONCE 2 tabs 0RF colonoscopy prep 1 day Z12.11 - Encounter for screening for malignant neoplasm of colon Patient Instructions: EGD colonoscopy MiraLax Gatorade split prep Increase MiraLax 3-4 days prior to prep day for colonoscopy However reflux precautions reviewed continue to avoid culprits and daily PPI Encouraged to call questions or concerns Reinforced importance of follow Coding Level of Care Code Est Pt Level 4 (05331) Diagnoses Chronic diarrhea K52.9 Nausea R11.0 Acid reflux K21.9 Family history of colon cancer Z80.0 Time Spent (min) 35
[2023-04-26 14:23] VITALS: BP 124/58; PULSE 84; BMI 29.5
== END 2023-04-26 15:36 | disposition home or self-care (01) ==
PROVIDERS: PCP Physician Assistant; Visit Provider Physician Assistant
DX: K52.9 Noninfective gastroenteritis and colitis, unspecified (principal); R11.0 Nausea; K21.9 Gastro-esophageal reflux disease without esophagitis; Z80.0 Family history of malignant neoplasm of digestive organs
CPT/HCPCS: 99214

== ENCOUNTER → 2023-04-26 14:18 | Outpatient (BNVA) | payer MEDICARE, MEDICAID, SELFPAY | PROVIDERS: PCP Physician Assistant; Visit Provider Physician Assistant | DX: K52.9 Noninfective gastroenteritis and colitis, unspecified (principal); R11.0 Nausea; K21.9 Gastro-esophageal reflux disease without esophagitis; Z86.010 Personal history of colon polyps; Z90.49 Acquired absence of other specified parts of digestive tract; Z80.0 Family history of malignant neoplasm of digestive organs | CPT/HCPCS: 99212 ==

== ENCOUNTER 2023-07-02 08:52 | Day surgery (SDC) | payer OTHER, MEDICAID, SELFPAY ==
[2023-06-29 12:12] VITALS: BMI 29.5
--- NOTE | 2023-07-01 12:09 | HO.ANESPROP2 ---
Documented by User: Betty Peck NP 07/01/23 12:09 HPI - Anesthesia Eval Consult details Narrative: 67yo F for Upper Endoscopy and Colonoscopy PMFSH Active Problems Active Problems: All Active Problems (Updated 05/03/23 @ 11:04 by Fiona Gilbert PA-C) Acid reflux (Acute) Family history of colon cancer (Acute) Lumbar spine pain (Acute) Lower thoracic back pain (Acute) Dermatitis (Acute) HTN (hypertension) (Acute) Hypothyroidism (Acute) RUQ abdominal pain (Acute) Obese (Acute) Annual physical exam (Acute) Urticaria (Acute) Thoracic spine pain (Acute) Colon cancer screening (Acute) Breast cancer screening (Acute) Nausea (Acute) Chronic diarrhea (Acute) Abnormal CT of the abdomen (Acute) Rash due to allergy (Acute) Past Medical History Medical History IBS (irritable bowel syndrome) Hypothyroid Abnormal CT of the abdomen Rash due to allergy Family History Family History Father Stomach cancer Skin cancer Mother Stroke Diabetes Hypertension Past heart attack Sister Diabetes Daughter Colon cancer Surgical History Surgical History History of cholecystectomy History of hernia repair Social History Social History Housing: House Alcohol intake: never Patient Tobacco Use Status: Never used Tobacco Tobacco use type: Cigarette e-Cigarette/Vaping Use: Never Used Second Hand Smoke Exposure: No Advance Directives: No Advance Directives Information Provided: Yes service: No Current occupational status: retired Cognitive needs: No Hearing needs: No Vision needs: Yes (Pt wears glasses.) Meds Allergies Allergy/AdvReac Type Severity Reaction Status Date / Time lisinopril Allergy Unknown shortness Verified 04/26/23 14:22 of breath coconut Allergy Unknown diarrhea, Uncoded 02/04/23 10:41 vomiting Exam Exam Date and Time: July 01, 2023 1209 Height,Weight and Vital Signs: Height 5 ft 1 in Weight 70.76 kg Pertinent Lab Results Pertinent Lab Results: Laboratory Tests 02/10/23 06:13 WBC 7.1 Hgb 12.4 Hct 38.6 Plt Count 284 Sodium 143 Potassium 3.8 Chloride 106 Carbon Dioxide 27 BUN 13 Creatinine 0.72 Assessment and Plan Assessment Anesthesia Assessment: Chart Reviewed Documented by User: Kristine Nur MD 07/02/23 10:51 PMFSH Active Problems Active Problems: All Active Problems (Updated 07/02/23 @ 10:12 by Kristine Nur MD) Acid reflux (Acute) Family history of colon cancer (Acute) Lumbar spine pain (Acute) Lower thoracic back pain (Acute) Dermatitis (Acute) HTN (hypertension) (Acute) Hypothyroidism (Acute) RUQ abdominal pain (Acute) Obese (Acute) Annual physical exam (Acute) Urticaria (Acute) Thoracic spine pain (Acute) Colon cancer screening (Acute) Breast cancer screening (Acute) Nausea (Acute) Chronic diarrhea (Acute) Abnormal CT of the abdomen (Acute) Rash due to allergy (Acute) Denies [place] Past Medical History Medical History IBS (irritable bowel syndrome) Hypothyroid Abnormal CT of the abdomen Rash due to allergy Family History Family History Father Stomach cancer Skin cancer Mother Stroke Diabetes Hypertension Past heart attack Sister Diabetes Daughter Colon cancer Family history of problems with anesthesia: No Surgical History Surgical History History of cholecystectomy History of hernia repair History of Problems with Anesthesia: No Social History Social History Housing: House Alcohol intake: never Patient Tobacco Use Status: Never used Tobacco Tobacco use type: Cigarette e-Cigarette/Vaping Use: Never Used Second Hand Smoke Exposure: No Advance Directives: No Advance Directives Information Provided: Yes service: No Current occupational status: retired Cognitive needs: No Hearing needs: No Vision needs: Yes (Pt wears glasses.) Meds Allergies Allergy/AdvReac Type Severity Reaction Status Date / Time lisinopril Allergy Unknown shortness Verified 04/26/23 14:22 of breath coconut Allergy Unknown diarrhea, Uncoded 02/04/23 10:41 vomiting Exam Height,Weight and Vital Signs: Height 5 ft 1 in Weight 70.76 kg Vital Signs Temp Pulse Resp BP Pulse Ox O2 Del Method 07/02/23 09:27 98.0 F 93 18 140/75 H 96 Room Air Airway Mallampati Class: III TM Dist: >3cm Neck ROM: Full Denture: Upper Partial: Lower Loose/Missing/Broken Teeth: Yes (Denies broken or loose teeth) Heart: RRR Lungs: CTAB Assessment and Plan Assessment Anesthesia Assessment: Anesthesia Plan Discussed Final Anesthetic Review Family History of Problems with Anesthesia: No History of Problems with Anesthesia: No NPO: Yes ASA Class: II Final Preanesthetic Review: No Changes in Pt Med Stat, Meds/Allgs Chart Reviewed, Consent Obtained/Reviewed and Anes Risks/Benef Reviewed Patient Risk: Intermediate Procedure Risk: Low Assessment/Block/Sedation in SS: Assess/Block/Sedation-SS Anesthetic Plan Anesthetic Plan: MAC: Disposition: Standard PACU
[2023-07-02 09:27] VITALS: BP 140/75; PULSE 93; RESP 18; TEMP 36.7; O2SAT 96
[2023-07-02] MEDS: Lactated Ringers 1,000 ML 100 ML IVCONT (09:35)
--- NOTE | 2023-07-02 10:43 | MHC.SHP ---
Pre-Procedural Eval Section A Date of Service: 07/02/23 Section B Chief Complaint: Nausea, Noninfective gastroenteritis and colitis Details of Present Illness: PMH: Abnormal CT of the abdomen Hypothyroid IBS (irritable bowel syndrome) Rash due to allergy Surgical History: History of cholecystectomy History of hernia repair Present Medications: see Short Stay Collaborative assessment Allergies: Allergies Allergy/AdvReac Type Severity Reaction Status Date / Time lisinopril Allergy Unknown shortness Verified 04/26/23 14:22 of breath coconut Allergy Unknown diarrhea, Uncoded 02/04/23 10:41 vomiting Review of Systems Review of Systems Comment: Ten point ROS negative Exam Exam Comment: Gen appear: No acute distress HEENT: no icterus Chest: No overt resp distress Abd: soft, nontender, nondistended Psych: Stable affect, answering questions appropriately Neuro: A/Ox3 noted to move all extremities spontaneously Ext: no peripheral edema Plan Diagnosis/Plan: Unchanged I have reviewed the history and physical and performed a pertinent physical examination on my patient. No changes have occurred unless specified. Time Spent With Patient Time: Total time managing care of this patient today ____ minutes.
--- NOTE | 2023-07-02 10:44 | P.OP_ITS ---
Operative Note Operative Note Date of Service: 07/02/23 Narrative: Procedure:?Esophagogastroduodenoscopy and colonoscopy Endoscopist:?Bere Erwin MD Indication:?GERD, chronic diarrhea, fam hx of CRC Anesthesia Provider:?Maida Avalos CRNA Anesthesia Type:?MAC Instrument:?Olympus PCF-H190L, GIF-H190 Colonoscopy Procedure:? The procedure, indications, preparation and potential complications were reviewed with the patient, who indicated understanding and gave written informed consent to proceed. A physical exam was performed. A digital rectal exam was performed which was normal.? A distal attachment cap was affixed to the tip of the scope and the colonoscope was then inserted through the anus and advanced through the colon to the cecum at 75 cm and terminal ileum. Appendiceal orifice and ileocecal valve were identified. Mucosa was carefully examined under high definition white light as the instrument was slowly withdrawn in a retrograde panoramic fashion. Retroflexion was performed in rectum. The procedure was not difficult. There were no immediate obvious complications. The quality of the prep was BBPS: 3+3+2 = adequate Withdrawal time: 11 minutes Limitations: No limitation. Colonoscopy Findings: Mucosa: Normal mucosa to cecum and terminal ileum. Cold forceps biopsies were taken from the right and left side of the colon to rule out microscopic colitis. Protruding lesions: * Medium internal hemorrhoids without stigmata of recent bleeding. Excavated lesions: * Scattered diverticulosis in the sigmoid colon EGD Procedure:?? The patient was then turned for the upper endoscopy. The endoscope was introduced through the bite block, and advanced to the second part of duodenum. The mucosa was carefully examined on slow withdrawal of the endoscope. There were no immediate complications. Patient tolerated the procedure well. EGD Findings:? * Esophagus:? Normal mucosa noted in the entire esophagus. The Z-line is at 34 cm. A small hiatal hernia was noted with the diaphragmatic pinch at 37 cm. * Stomach:? Normal gastric mucosa. Retroflexion performed in the fundus shows Hill grade III hiatal hernia. Random cold forceps gastric biopsies were taken to rule out H pylori. * Duodenum:? Normal duodenal mucosa to the extent visualised. Cold forceps biopsies were taken from duodenal bulb and 2nd portion of duodenum to rule out celiac sprue. Impression: 1. Normal esophagus 2. Hiatal hernia 3. Normal gastric mucosa (biopsy) 4. Normal duodenum (biopsy) 5. Normal colon and terminal ileum mucosa (biopsy) 6. Diverticulosis 7. Internal hemorrhoids Recommendations:?? * Await pathology results. * Repeat colonoscopy for CRC in 5 years due to fam hx of CRC
[2023-07-02 11:21] VITALS: BP 131/80; PULSE 101; RESP 16; TEMP 36.1; O2SAT 96
[2023-07-02 11:36] VITALS: BP 156/90; PULSE 94; RESP 20; TEMP 37.1; O2SAT 97
== END 2023-07-02 12:15 | disposition home or self-care (01) ==
PROVIDERS: PCP Physician Assistant; Visit Provider Internal Medicine
PROC: (CPT 45380; principal; 2023-07-02 10:30)
DX: K52.9 Noninfective gastroenteritis and colitis, unspecified (principal); Z80.0 Family history of malignant neoplasm of digestive organs; K57.30 Diverticulosis of large intestine without perforation or abscess without bleeding; K64.8 Other hemorrhoids; K64.4 Residual hemorrhoidal skin tags; K21.9 Gastro-esophageal reflux disease without esophagitis; K29.50 Unspecified chronic gastritis without bleeding; B96.81 Helicobacter pylori [H. pylori] as the cause of diseases classified elsewhere; K44.9 Diaphragmatic hernia without obstruction or gangrene; I10 Essential (primary) hypertension; Z79.899 Other long term (current) drug therapy; Z88.8 Allergy status to other drugs, medicaments and biological substances; Z90.49 Acquired absence of other specified parts of digestive tract
CPT/HCPCS: 45380; 43239; 88305; 88342

== ENCOUNTER → 2023-07-02 08:52 | Outpatient (BNV) | payer OTHER, MEDICAID, SELFPAY | PROVIDERS: PCP Physician Assistant; Visit Provider Internal Medicine | DX: K52.29 Other allergic and dietetic gastroenteritis and colitis (principal); K21.9 Gastro-esophageal reflux disease without esophagitis; Z80.0 Family history of malignant neoplasm of digestive organs; K44.9 Diaphragmatic hernia without obstruction or gangrene; K64.9 Unspecified hemorrhoids; K57.30 Diverticulosis of large intestine without perforation or abscess without bleeding | CPT/HCPCS: 43239; 45380 ==

== ENCOUNTER 2023-07-15 09:46 | Outpatient (AMB) | payer MEDICARE, MEDICAID, SELFPAY ==
--- NOTE | 2023-07-15 09:50 | A.OFFVIS_ITS ---
Intake Vital Signs 07/15/23 09:51 Height 5 ft 1 in Weight 154 lb 5.177 oz BMI 29.2 BP 140/72 H Blood Pressure Location Lt brachial Position Sitting Pulse 72 Intake Visit Reasons: s/p egd/colon- Rip Intake Note: Leny presents in the office as a follow up DBL. CC: She states that she is not having any concerns since her procedures. [employer] Required: No Allergies lisinopril Allergy (Unknown, Verified 07/15/23 09:51) shortness of breath coconut Allergy (Unknown, Uncoded 07/15/23 09:51) diarrhea, vomiting Medication List - Last Reconciled 07/15/23 by Fiona Gilbert PA-C amlodipine 10 mg PO DAILY 90 days hydrocortisone 2.5% (Proctosol HC) 1 appl [place] BEDTIME PRN levothyroxine 125 mcg PO DAILY 30 days loperamide (Imodium A-D) 2 mg PO Q6H PRN meloxicam 15 mg PO DAILY 30 days methylcellulose (laxative) (Citrucel Sugar Free oral powder) 2 grams PO DAILY PRN omeprazole 20 mg PO DAILY triamcinolone acetonide 0.1% 1 appl topical BID 30 days HPI HPI Comments History of Present Illness Details 67-year-old female family history of co jarrod cancer,follows up after recent EGD and colonoscopy she tolerated procedures well reviewed procedure report, pathology recommendation appetite is good she continues to have intermittent loose stool- she has no nausea, vomiting hematemesis, hematochezia fever chills PFSH Medical History (Updated 07/15/23 @ 10:25 by Fiona Gilbert PA-C) IBS (irritable bowel syndrome) Hypothyroid Abnormal CT of the abdomen Rash due to allergy Surgical History History of esophagogastroduodenoscopy (EGD) Hx of colonoscopy History of cholecystectomy History of hernia repair Family History Father Stomach cancer Skin cancer Mother Stroke Diabetes Hypertension Past heart attack Sister Diabetes Daughter Colon cancer Social History Housing: House Alcohol intake: never Patient Tobacco Use Status: Never used Tobacco Tobacco use type: Cigarette e-Cigarette/Vaping Use: Never Used Second Hand Smoke Exposure: No service: No Current occupational status: retired Cognitive needs: No Hearing needs: No Vision needs: Yes (Pt wears glasses.) Review of Systems Const All systems reviewed & are unremarkable except as noted in HPI and below Card Denies chest pain and Denies dyspnea Resp Denies dyspnea GI Denies abdominal pain, Denies hematochezia, Denies change in bowel habits and Reports loose stools (No change intermittent) Physical Exam Vital Signs: Last Vital Signs Pulse 72 07/15/23 09:51 BP 140/72 H 07/15/23 09:51 BMI result Body Mass Index 29.2 Const General: cooperative, healthy appearing, comfortable and no acute distress Orientation/consciousness: patient oriented x3 Limitations: no limitations Skin General skin exam: no rashes or lesions noted Neuro General: patient oriented x3 Extrem General: Yes full ROM Psych Appearance: grossly normal and well kempt Mental Status: mental status grossly normal Speech and movement: Normal speech and movement present and Clear speech present Affect: normal affect Attitude: cooperative Thought process: Normal thought process present Thought content: Normal thought content present Insight: Good insight present (Psych) Judgement: Good judgement present (Psych) Results Reviewed Results Reviewed: mpression: 1. Normal esophagus 2. Hiatal hernia 3. Normal gastric mucosa (biopsy) 4. Normal duodenum (biopsy) 5. Normal colon and terminal ileum mucosa (biopsy) 6. Diverticulosis 7. Internal hemorrhoids Recommendations:?? * Await pathology results. * Repeat colonoscopy for CRC in 5 years due to fam hx of CRC Name: Leny Azul Age/Sex: 67/F Attending: Bere Erwin MD : 1955 Submitted by: Bere Erwin MD Copies to: Jorge Madison PA-C MR #: [id number] Status: [facility] Collected: 07/02/23 Location: [facility] Received: 07/02/23 Diagnosis A. Colon, right side, biopsy: Colonic mucosa within normal limits; negative for active, chronic or microscopic colitis. B. Colon, left side, biopsy: Colonic mucosa within normal limits; negative for active, chronic or microscopic colitis. C. Duodenum, biopsy: Duodenal mucosa with preserved villous architecture and increased intraepithelial lymphocytes (see comment). D. Stomach, random, biopsy: Gastric antral and body mucosa with moderate chronic, focally active gastritis and numerous Helicobacter pylori organisms identified; negative for intestinal metaplasia and dysplasia. COMMENT (C): These findings raise the possibility of celiac disease; however other pathologic processes, including H. pylori gastritis (favored), peptic duodenitis, food allergies other than celiac disease, tropical sprue, viral enteritis, injury caused by drugs, autoimmune enteropathy, immunodeficiencies and Crohn's disease can induce intraepithelial lymphocytosis with or without associated architectural changes. In many cases no definite cause is identified. Clinical and serological correlation is recommended. Clinical History Pre-Op Dx: GERD, family HX colon cancer Post-Op Dx: Lower: external hemorrhoids, diverticulosis Upper: Hiatal hernia Microscopic Description Microscopic sections reviewed. Material Received A. Right side colon biopsy B. Left side colon biopsy C. Duodenum biopsy D. Random gastric biopsy Gross Description Received in 4 parts. Patient: Leny Azul Age/Sex: 67/F MR#: [id number] Page 1 of 2 Assessment & Plan Assessment & Plan (1) Family history of colon cancer: Comment: Daughter 30's Code(s): Z80.0 - Family history of malignant neoplasm of digestive organs (2) Acid reflux: Code(s): K21.9 - Gastro-esophageal reflux disease without esophagitis (3) Diverticulosis of colon: Code(s): K57.30 - Diverticulosis of large intestine without perforation or abscess without bleeding Plan: Maintain high-fiber diet ER protocol (4) H. pylori duodenitis: Comment: tx- quadruple therapy=rtc UBT 6 wks Code(s): K29.80 - Duodenitis without bleeding; B96.81 - Helicobacter pylori [H. pylori] as the cause of diseases classified elsewhere Plan H pylori, quadruple therapy-[facility] 6-wks Diverticulosis/diverticulitis ER protocol Repeat asymptomatic colonoscopy 5 years due to family history Orders: Orders H Pylori Breath Test 6 Weeks A04.8 - Other specified bacterial intestinal infections Medications: New bismuth subsalicylate (Bismuth) 2 tabs PO QID 14 days PRN 112 tabs 0RF diarrhea tetracycline 500 mg PO Q6H 14 days PRN 56 caps 0RF h.pylori metronidazole 250 mg PO QID 14 days PRN 56 tabs 0RF h.pylori omeprazole 20 mg PO BID 14 days 28 caps 0RF Patient Instructions: H pylori, quadruple therapy-[facility] [id number] to complete therapy Diverticulosis/diverticulitis ED our protocol reviewed Repeat asymptomatic colonoscopy 5 years due to family history of colon cancer Coding Level of Care Code Est Pt Level 3 (50062) Diagnoses Family history of colon cancer Z80.0 Acid reflux K21.9 Diverticulosis of colon K57.30 H. pylori duodenitis K29.80; B96.81 Time Spent (min) 30
[2023-07-15 09:51] VITALS: BP 140/72; PULSE 72; BMI 29.2
== END 2023-07-15 10:29 | disposition home or self-care (01) ==
PROVIDERS: PCP Physician Assistant; Visit Provider Physician Assistant
DX: Z80.0 Family history of malignant neoplasm of digestive organs (principal); K21.9 Gastro-esophageal reflux disease without esophagitis; K57.30 Diverticulosis of large intestine without perforation or abscess without bleeding; K29.80 Duodenitis without bleeding; B96.81 Helicobacter pylori [H. pylori] as the cause of diseases classified elsewhere
CPT/HCPCS: 99213

== ENCOUNTER → 2023-07-15 09:46 | Outpatient (BNVA) | payer MEDICARE, MEDICAID, SELFPAY | PROVIDERS: PCP Physician Assistant; Visit Provider Physician Assistant | DX: K57.30 Diverticulosis of large intestine without perforation or abscess without bleeding (principal); K21.9 Gastro-esophageal reflux disease without esophagitis; K29.80 Duodenitis without bleeding; B96.81 Helicobacter pylori [H. pylori] as the cause of diseases classified elsewhere; Z80.0 Family history of malignant neoplasm of digestive organs; Z98.890 Other specified postprocedural states | CPT/HCPCS: 99212 ==

== ENCOUNTER 2023-08-02 15:35 | Outpatient (AMB) | payer MEDICARE, MEDICAID, SELFPAY ==
[2023-08-02 15:57] VITALS: BP 160/82; PULSE 92; RESP 16; O2SAT 95; BMI 29.5
--- NOTE | 2023-08-02 15:57 | MHC.PC.OV ---
Vital Signs 08/02/23 15:57 Height 5 ft 1 in Weight 156 lb 2 oz BMI 29.5 BP 160/82 H Blood Pressure Location Lt brachial Position Sitting Respiration 16 Pulse 92 Pulse Source Pulse Oximeter Pulse Oximetry (%) 95 Oxygen Delivery Method Room Air Intake Visit Reasons: RT Shoulder pain/OK Per Gaby Intake Note: Pt is here for right shoulder pain- Pt was putting a whitewasher and felted a crackling sound in right shoulder. Possible tear: difficulty, pain and weakness cause by rising and numbness. Pain worsen mostly at night when resting the arm. [employer] Hand Required: No Accompanied by: Self / Same As Patient Allergies lisinopril Allergy (Unknown, Verified 08/03/23 07:26) shortness of breath coconut Allergy (Unknown, Uncoded 08/02/23 16:00) diarrhea, vomiting Medication List - Last Reconciled 08/03/23 by Jorge Madison PA-C amlodipine 10 mg PO DAILY 90 days bismuth subsalicylate (Bismuth) 2 tabs PO QID PRN 14 days hydrocortisone 2.5% (Proctosol HC) 1 appl [place] BEDTIME PRN ibuprofen 600 mg PO Q8H PRN 15 days levothyroxine 125 mcg PO DAILY 30 days loperamide (Imodium A-D) 2 mg PO Q6H PRN meloxicam 15 mg PO DAILY 30 days methylcellulose (laxative) (Citrucel Sugar Free oral powder) 2 grams PO DAILY PRN metronidazole 250 mg PO QID PRN 14 days omeprazole 20 mg PO BID 14 days tetracycline 500 mg PO Q6H PRN 14 days tramadol 50 mg PO BEDTIME 7 days triamcinolone acetonide 0.1% 1 appl topical BID 30 days Tobacco use date assessed: 02/04/23 HPI RT Shoulder pain/OK Per Gaby HPI Details Patient is 67-year-old female here today for right shoulder issue. She reports she was moving a washing machine and felt a pop in her right shoulder, now having decreased range of motion continued pain. Has been using Meloxicam and tylenol , topical bengay with only minimal relief. She continues to have limited use of her right upper extremity due to her continued right shoulder pain. Concerns here for rotator cuff tear. [facility] Medical History (Updated 08/02/23 @ 16:33 by Jorge Madison PA-C) IBS (irritable bowel syndrome) Hypothyroid Abnormal CT of the abdomen Rash due to allergy Surgical History History of esophagogastroduodenoscopy (EGD) Hx of colonoscopy History of cholecystectomy History of hernia repair Family History Father Stomach cancer Skin cancer Mother Stroke Diabetes Hypertension Past heart attack Sister Diabetes Daughter Colon cancer Social History Housing: House Alcohol intake: never Patient Tobacco Use Status: Never used Tobacco Tobacco use type: Cigarette e-Cigarette/Vaping Use: Never Used Second Hand Smoke Exposure: No service: No Current occupational status: retired Cognitive needs: No Hearing needs: No Vision needs: Yes (Pt wears glasses.) Questionnaire Thrive Questionnaire Date Thrive assessed: 10/28/22 IMMANUEL-7 AMB Questionnaire IMMANUEL-7 Date IMMANUEL - 7 assessed: 10/28/22 Source: Developed by Drs. Julio Napier, Lauren Castillo, Dung Fonseca and colleagues, with an educational rhonda from [employer]. Review of Systems Const Denies headache(s) Eyes Denies loss of vision ENT Denies vertigo, Denies dizziness, Denies headache(s) and Denies sore throat Card Denies chest pain, Denies leg edema and Denies lightheadedness Resp Denies cough, Denies hemoptysis and Denies wheezing GI Denies abdominal pain, Denies melena, Denies constipation, Denies diarrhea and Denies vomiting Denies urinary frequency, Denies dysuria and Denies urinary urgency Musc Denies arthralgias, Denies joint swelling, Denies numbness and Denies tingling Neuro Denies Abnormal speech present, Denies behavioral changes, Denies vertigo, Denies dizziness, Denies headache(s), Denies loss of vision, Denies memory loss, Denies numbness and Denies tingling Psych Denies anxiety, Denies behavioral changes, Denies depression, Denies memory loss and Denies panic attacks Jalen/Lymph Denies easy bleeding and Denies easy bruising Aller/Immun Denies wheezing Physical exam (Primary Care) Vital Signs: Last Vital Signs Pulse 92 10/16/23 15:57 Resp 16 08/02/23 15:57 BP 160/82 H 08/02/23 15:57 Pulse Ox 95 08/02/23 15:57 Oxygen Delivery Method Room Air 08/02/23 15:57 BMI result Body Mass Index 29.5 Tobacco/Smoking Status: Tobacco use Status Tobacco use date assessed 02/04/23 08/02/23 16:07 Patient Tobacco Use Status Never used Tobacco 08/02/23 16:07 Tobacco use type Cigarette 08/02/23 16:07 e-Cigarette/Vaping Use Never Used 08/02/23 16:07 Thrive Assessment: Date of Thrive Assessment Date Thrive assessed 10/28/22 08/02/23 16:07 Const General: healthy appearing, no acute distress, alert and awake Nutritional Appearance: well nourished Orientation/consciousness: oriented to person, oriented to place and oriented to time HENMT Ears: TM's normal bilaterally General nose exam: Normal nasal mucous membranes and turbinates present Eyes Conjunctivae: conjunctivae normal Sclerae: sclerae normal Pupils: Equal, round and reactive pupils present Neck Neck: Yes no lymphadenopathy and Yes no JVD Thyroid: Thyroid normal Carotids: no bruits Resp Effort & Inspection: normal respiratory effort and not tachypneic Auscultation: no crackles, no rales, no rhonchi and no wheezes Cardio Rate: regular rate Rhythm: regular rhythm Heart sounds: no murmurs and normal S1 and S2 GI Palpation (GI): Soft to palpation, nontender, no hepatomegaly and no splenomegaly Auscultation: normal bowel sounds Skin General skin exam: no rashes or lesions noted and dry skin Neuro General: oriented to person, oriented to place and oriented to time Cranial nerves: Yes Equal, round and reactive pupils present Speech: No Abnormal speech present Gait exam (Neuro): Normal gait present Motor exam (neuro): no tremor noted Extrem Other: RIGHT SHOULDER: POSITIVE EMPTY CAN TEST, POSITIVE RICO TEST. VERY LIMITED RANGE OF MOTION DUE TO PAIN Left upper extremity: full ROM Right lower extremity: full ROM; no edema Left lower extremity: full ROM; no edema Psych Mental Status: mental status grossly normal Speech and movement: Normal speech and movement present Affect: normal affect Attitude: cooperative Thought process: Normal thought process present Assessment and Plan Assessment & Plan (1) Right rotator cuff tear: Code(s): M75.101 - Unspecified rotator cuff tear or rupture of right shoulder, not specified as traumatic Qualifiers: Encounter type: initial encounter Rotator cuff tear extent: incomplete Rotator cuff tear trauma status: traumatic Qualified Code(s): S46.011A - Strain of muscle(s) and tendon(s) of the rotator cuff of right shoulder, initial encounter Plan: As per HPI patient was trying to move a washing machine and felt a pop in her right shoulder 5 days ago. Has ever since been having continued pain and decreased range of motion of the right upper extremity. Has been using NSAIDs and Tylenol without much relief of her pain. Has been having and limited mobility of the right upper extremity due to pain in her shoulder. Physical exam today in office is concerning for rotator cuff tear per. Due to mechanism of injury Will send for MRI of the right shoulder to evaluate for possible rotator cuff tear. Orders: Orders PT Evaluation and Treatment 08/02/23 S46.011A - Strain of muscle(s) and tendon(s) of the rotator cuff of right shoulder, initial encounter TSH reflex Free T4 5 Months E03.9 - Hypothyroidism, unspecified Lipid Panel 5 Months E78.5 - Hyperlipidemia, unspecified, I10 - Essential (primary) hypertension MR shoulder RT wo con 08/02/23 S46.011A - Strain of muscle(s) and tendon(s) of the rotator cuff of right shoulder, initial encounter XR shoulder RT 1V 08/02/23 S46.011A - Strain of muscle(s) and tendon(s) of the rotator cuff of right shoulder, initial encounter Microalbumin, Random (w Creat) 5 Months I10 - Essential (primary) hypertension Comprehensive Wallback. Panel Fast 5 Months I10 - Essential (primary) hypertension Medications: New tramadol 50 mg PO BEDTIME 7 tabs 0RF 7 days S46.011A - Strain of muscle(s) and tendon(s) of the rotator cuff of right shoulder, initial encounter ibuprofen 600 mg PO Q8H PRN 45 tabs 0RF pain 15 days S46.011A - Strain of muscle(s) and tendon(s) of the rotator cuff of right shoulder, initial encounter Discontinued omeprazole Discontinued Reason: Doctor's Order 20 mg PO DAILY 30 caps 5RF Coding Level of Care Code Est Pt Level 4 (96274) Diagnoses Traumatic incomplete tear of right rotator cuff, initial encounter S46.011A Encounter type: initial encounter Rotator cuff tear extent: incomplete Rotator cuff tear trauma status: traumatic
== END 2023-08-02 16:37 | disposition home or self-care (01) ==
PROVIDERS: PCP Physician Assistant; Visit Provider Physician Assistant
DX: S46.011A Strain of muscle(s) and tendon(s) of the rotator cuff of right shoulder, initial encounter (principal)
CPT/HCPCS: 99214

== ENCOUNTER 2023-08-03 09:11 | Outpatient (REF) | payer MEDICARE, SELFPAY ==
--- NOTE | ~2023-08-03 | XR_ITS ---
EXAMINATION: XR SHOULDER, RIGHT CLINICAL INFORMATION: Strain of muscle and tendons, pain rotator cuff COMPARISON: None available. TECHNIQUE: AP external rotation, Grashey, scapular Y, and axillary views of the right shoulder. FINDINGS: Mild hypertrophic change at the acromioclavicular joint. No abnormal soft tissue calcifications identified adjacent to the humeral head. Mild hypertrophic change along the inferior aspect of the glenohumeral joint. XR/XR shoulder RT min 2V IMPRESSION: Mild degenerative changes in the shoulder.
== END 2023-08-03 09:12 | disposition home or self-care (01) ==
LOC: HO.XRAY 09:11
PROVIDERS: PCP Physician Assistant; Visit Provider Physician Assistant
DX: S46.011A Strain of muscle(s) and tendon(s) of the rotator cuff of right shoulder, initial encounter (principal); X58.XXXA Exposure to other specified factors, initial encounter; Y93.9 Activity, unspecified; Y92.9 Unspecified place or not applicable; Y99.9 Unspecified external cause status
CPT/HCPCS: 73030

== ENCOUNTER 2023-08-21 15:34 | Outpatient (REF) | payer MEDICARE, SELFPAY ==
--- NOTE | ~2023-08-21 | MR_ITS ---
EXAMINATION: MR SHOULDER WITHOUT CONTRAST, RIGHT CLINICAL INFORMATION: Right shoulder pain. Rotator cuff tendon strain. COMPARISON: Right shoulder radiographs dated 08/03/2023. TECHNIQUE: MRI of the shoulder without contrast was performed on a high-field scanner. FINDINGS: ROTATOR CUFF: Mild supraspinatus and infraspinatus tendinosis. There is intrasubstance fraying/partial tearing of the junctional fibers and extending into the infraspinatus tendon measuring up to 1.3 x 1.5 cm. No full-thickness rotator cuff tendon tear. Mild teres minor muscle atrophy. BICEPS: Mild proximal long head biceps tendinosis. CORACOACROMIAL ARCH: The undersurface of the acromion is curved with no subacromial spur. Moderate acromioclavicular osteoarthritis. Trace edema within the subacromial subdeltoid bursa, consistent with minimal bursitis. LABRUM/CAPSULE: Heterogeneity of the superior and posterosuperior labrum as well as the anterior and anteroinferior labrum, consistent with degenerative fraying. Mild thickening and edema of the anterosuperior joint capsule, which can be seen in the setting of adhesive capsulitis. GLENOHUMERAL JOINT/MARROW: Full-thickness articular cartilage loss at the anterosuperior glenoid measuring up to 1.1 cm in craniocaudal dimension with underlying marrow edema and subchondral cystic change. Small marginal osteophytes. MR/MR shoulder RT wo con IMPRESSION: 1. Mild supraspinatus and infraspinatus tendinosis with intrasubstance fraying/partial tearing of the junctional fibers and extending into the infraspinatus tendon measuring 1.3 x 1.5 cm. No full-thickness rotator cuff tendon tear. Mild teres minor muscle atrophy. 2. Mild proximal long head biceps tendinosis. 3. Moderate acromioclavicular osteoarthritis. Minimal subacromial subdeltoid bursitis. 4. Degenerative fraying of the superior, posterosuperior, anterior, and anteroinferior labrum. 6. Mild thickening and edema of the anterosuperior joint capsule, which can be seen the setting of adhesive capsulitis. 7. Mild glenohumeral osteoarthritis.
== END 2023-08-21 15:35 | disposition home or self-care (01) ==
LOC: HO.MRI 15:34
PROVIDERS: PCP Physician Assistant; Visit Provider Physician Assistant
DX: S46.011A Strain of muscle(s) and tendon(s) of the rotator cuff of right shoulder, initial encounter (principal)
CPT/HCPCS: 73221

== ENCOUNTER 2023-09-07 09:43 | Outpatient (AMB) | payer MEDICARE, SELFPAY ==
--- NOTE | 2023-09-07 09:49 | A.OFFVIS_ITS ---
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 Intake Note: Leny a 67 year old right hand dominant female presents today as a new patient for an evaluation of right shoulder. Patient reports pain came on after she was doing laundry about a month ago. She was seen by her PCP who ordered MRI and referred to orthopedics. Patient describes her pain as achy in nature. Most of the pain is along the lateral aspect of her shoulder. She is due to start formal physical therapy over the next few weeks. She denies any weakness. She has tried Tylenol and anti-inflammatory medicines which gave her mild relief. She has not had an injection. Allergies lisinopril Allergy (Unknown, Verified 09/07/23 09:55) shortness of breath coconut Allergy (Unknown, Uncoded 09/07/23 09:55) diarrhea, vomiting Medication List - Last Reconciled 09/07/23 by Jr Nance MD amlodipine 10 mg PO DAILY 90 days bismuth subsalicylate (Bismuth) 2 tabs PO QID PRN 14 days hydrocortisone 2.5% (Proctosol HC) 1 appl AL BEDTIME PRN ibuprofen 600 mg PO Q8H PRN 15 days levothyroxine 125 mcg PO DAILY 30 days loperamide (Imodium A-D) 2 mg PO Q6H PRN meloxicam 15 mg PO DAILY 30 days methylcellulose (laxative) (Citrucel Sugar Free oral powder) 2 grams PO DAILY PRN metronidazole 250 mg PO QID PRN 14 days omeprazole 20 mg PO BID 14 days tetracycline 500 mg PO Q6H PRN 14 days tramadol 50 mg PO BEDTIME 7 days triamcinolone acetonide 0.1% 1 appl topical BID 30 days PFSH Medical History (Updated 09/07/23 @ 10:07 by Jr Nance MD) IBS (irritable bowel syndrome) Hypothyroid Abnormal CT of the abdomen Rash due to allergy Surgical History History of esophagogastroduodenoscopy (EGD) Hx of colonoscopy History of cholecystectomy History of hernia repair Family History Father Stomach cancer Skin cancer Mother Stroke Diabetes Hypertension Past heart attack Sister Diabetes Daughter Colon cancer (Updated 09/07/23 @ 09:52 by Sharon Sanders [facility]) Housing: House Alcohol intake: never Patient Tobacco Use Status: Never used Tobacco Tobacco use type: Cigarette e-Cigarette/Vaping Use: Never Used Second Hand Smoke Exposure: No service: No Current occupational status: retired Current occupation: right hand dominant Cognitive needs: No Hearing needs: No Vision needs: Yes (Pt wears glasses.) Physical Exam Const Other: Well-nourished well-developed very friendly female awake alert and oriented x3 in no acute distress Extrem Other: Bilateral upper extremity examination shows good capillary refill, no skin lesions noted, normal sensation light touch Right shoulder examination shows slightly decreased range of motion when compared to her left shoulder, positive impingement signs, tenderness over her acromioclavicular joint, no instability Results Reviewed Results Reviewed: X-rays of the patient's right shoulder show severe acromioclavicular joint narrowing, a type 3 acromion, no acute bony abnormalities MRI of the patient's right shoulder show severe acromioclavicular joint narrowing, a type 3 acromion, signal change within the supraspinatus tendon most likely due to rotator cuff tendinosis versus partial-thickness tearing Assessment & Plan Assessment & Plan (1) Impingement of right shoulder: Code(s): M25.811 - Other specified joint disorders, right shoulder Plan: Ms. Azul presents with right shoulder pain due to impingement syndrome, acromioclavicular joint arthritis and rotator cuff tendinosis versus partial-thickness tearing. I had a lengthy discussion patient regarding the treatment options. She wishes to hold off on a cortisone injection for now. She will begin formal physical therapy as scheduled over the next few weeks. She will follow up with me on an as-needed basis should her symptoms not plateau at an unacceptable level. Feel free to call me at any time should questions regarding her orthopedic management arise. Thank you very much for asking me to see this very friendly patient. I spent 22 minutes in reviewing the patient's records and imaging studies, seeing the patient and documenting in the medical record. Coding Level of Care Code New Pt Level 2 (91622) Diagnoses Impingement of right shoulder M25.811
== END 2023-09-07 10:08 | disposition home or self-care (01) ==
PROVIDERS: PCP Physician Assistant; Visit Provider Orthopaedic Surgery
DX: M25.811 Other specified joint disorders, right shoulder (principal)
CPT/HCPCS: 99202

== ENCOUNTER → 2023-09-07 09:43 | Outpatient (BNVA) | payer MEDICARE, SELFPAY | PROVIDERS: PCP Physician Assistant; Visit Provider Orthopaedic Surgery | DX: M25.811 Other specified joint disorders, right shoulder (principal) | CPT/HCPCS: 99202 ==

== ENCOUNTER 2023-09-13 09:17 | Outpatient (REF) | payer MEDICARE, SELFPAY ==
[2023-09-13 11:12] LABS: Alanine Aminotransferase 10 U/L (0-31); Alkaline Phosphatase 79 U/L (39-117); Anion Gap 10 (12-20); Aspartate Amino Transferase 18 U/L (5-31); Bilirubin Total 0.3 mg/dL (0.0-1.0); Blood Urea Nitrogen 16 mg/dL (9-16); Calcium 9.2 mg/dL (8.4-10.2); Carbon Dioxide 26 mmol/L (22-29); Chloride 109 mmol/L (96-108); Cholesterol 230 mg/dL (<200); Estimated Glomerular Filt Rate > 60; Glucose Fasting 98 mg/dL (60-99); HDL Cholesterol 44 mg/dL (>40); LDL Cholesterol Calculated 144 mg/dL (<100); Potassium 3.7 mmol/L (3.3-5.1); Sodium 141 mmol/L (135-145); Total Protein 7.8 g/dL (6.5-8.0); Triglycerides 212 mg/dL (<150)
[2023-09-13 11:12] LABS: Creatinine Urine 200.39 mg/dL; Microalbum/Creatinine Ratio Ur 10.9 ug/mg cr (<30)
[2023-09-13 11:34] LABS: TSH reflex Free T4 3.48 uIU/mL (0.32-4.0)
== END 2023-09-13 09:18 | disposition home or self-care (01) ==
LOC: HO.LAB 09:17
PROVIDERS: PCP Physician Assistant; Visit Provider Physician Assistant
DX: I10 Essential (primary) hypertension (principal); E78.5 Hyperlipidemia, unspecified; E03.9 Hypothyroidism, unspecified
CPT/HCPCS: 36415; 80053; 80061; 82043; 82570; 84443

== ENCOUNTER 2023-10-19 10:05 | Outpatient (AMB) | payer MEDICARE, SELFPAY ==
--- NOTE | 2023-10-19 10:15 | MHC.OFFVIS ---
Intake Intake Visit Reasons: OV- partial right rotator cuff tear. Intake Note: Leny is a 68 year old female who presents today for a MRI review of her right shoulder. Patient describes her right shoulder pain as achy in nature. Most of the pain is along the lateral aspect of her right shoulder. She reports intermittent weakness when lifting her right hand above shoulder height. She has done physical therapy which aggravated her pain. She has also had injections in the past which gave her minimal relief. She has tried Tylenol and anti-inflammatory medicines which gave her only mild relief. Allergies lisinopril Allergy (Unknown, Verified 10/19/23 10:18) shortness of breath coconut Allergy (Unknown, Uncoded 09/07/23 09:55) diarrhea, vomiting Medication List - Last Reconciled 10/19/23 by Jr Nance MD amlodipine 10 mg PO DAILY 90 days bismuth subsalicylate (Bismuth) 2 tabs PO QID PRN 14 days hydrocortisone 2.5% (Proctosol HC) 1 appl [place] BEDTIME PRN ibuprofen 600 mg PO Q8H PRN 15 days levothyroxine 125 mcg PO DAILY 30 days loperamide (Imodium A-D) 2 mg PO Q6H PRN meloxicam 15 mg PO DAILY 30 days methylcellulose (laxative) (Citrucel Sugar Free oral powder) 2 grams PO DAILY PRN metronidazole 250 mg PO QID PRN 14 days omeprazole 20 mg PO BID 14 days tetracycline 500 mg PO Q6H PRN 14 days tramadol 50 mg PO BEDTIME 7 days triamcinolone acetonide 0.1% 1 appl topical BID 30 days PFSH Medical History IBS (irritable bowel syndrome) Hypothyroid Abnormal CT of the abdomen Rash due to allergy Surgical History History of esophagogastroduodenoscopy (EGD) Hx of colonoscopy History of cholecystectomy History of hernia repair Family History Father Stomach cancer Skin cancer Mother Stroke Diabetes Hypertension Past heart attack Sister Diabetes Daughter Colon cancer Social History Housing: House Alcohol intake: never Patient Tobacco Use Status: Never used Tobacco Tobacco use type: Cigarette e-Cigarette/Vaping Use: Never Used Second Hand Smoke Exposure: No service: No Current occupational status: retired Current occupation: right hand dominant Cognitive needs: No Hearing needs: No Vision needs: Yes (Pt wears glasses.) Physical Exam Const Other: Well-nourished well-developed very friendly female awake alert and oriented x3 in no acute distress Extrem Other: Bilateral upper extremity examination shows good capillary refill, no skin lesions noted, normal sensation light touch Right shoulder examination shows slightly decreased range of motion when compared to her left shoulder, 4+ out of 5 strength with supraspinatus testing, positive impingement signs, tenderness over her acromioclavicular joint, no instability Results Reviewed Results Reviewed: MRI of the patient's right shoulder show severe acromioclavicular joint narrowing, a type 3 acromion, signal change within the supraspinatus tendon most likely due to rotator cuff tendinosis Assessment & Plan Assessment & Plan (1) Impingement of right shoulder: Code(s): M25.811 - Other specified joint disorders, right shoulder Plan Ms. Azul presents with right shoulder pain due to impingement syndrome, acromioclavicular joint arthritis and rotator cuff tendinosis. I had a lengthy discussion with the patient regarding the treatment options. At this point the patient's symptoms are tolerable to her. She will continue with her activity modifications. She will follow up with me on an as-needed basis should her symptoms worsen in any way. Feel free to call me at any time should questions regarding her orthopedic management arise. I spent 20 minutes in reviewing the patient's records and imaging studies, seeing the patient and documenting in the medical record. Coding Level of Care Code Est Pt Level 2 (42935) Diagnoses Impingement of right shoulder M25.811
== END 2023-10-19 10:44 | disposition home or self-care (01) ==
PROVIDERS: PCP Physician Assistant; Referring Provider Physician Assistant; Visit Provider Orthopaedic Surgery
DX: M75.41 Impingement syndrome of right shoulder (principal); M67.811 Other specified disorders of synovium, right shoulder
CPT/HCPCS: 99213

== ENCOUNTER → 2023-10-19 10:05 | Outpatient (BNVA) | payer MEDICARE, SELFPAY | PROVIDERS: PCP Physician Assistant; Visit Provider Orthopaedic Surgery | DX: M25.811 Other specified joint disorders, right shoulder (principal); M19.011 Primary osteoarthritis, right shoulder | CPT/HCPCS: 99212 ==

== ENCOUNTER 2023-10-22 09:27 | Outpatient (AMB) | payer MEDICARE, SELFPAY ==
--- NOTE | 2023-10-22 11:24 | MHC.OFFWIV ---
Intake Vital Signs 10/22/23 11:28 Height 5 ft 1 in Weight 163 lb 6 oz BMI 30.9 BP 110/70 Blood Pressure Location Lt brachial Position Sitting Pulse 75 Pulse Source Pulse Oximeter Temp 97.4 F Temp Source Temporal Artery Scan Pulse Oximetry (%) 98 Intake Visit Reasons: EP Rash on LT side on AB/Itchy [phone] Intake Note: Pt is here c/o rash on left side of stomach that has gotten very itchy. Patient Tobacco Use Status: Never used Tobacco Allergies lisinopril Allergy (Unknown, Verified 10/22/23 11:25) shortness of breath coconut Allergy (Unknown, Uncoded 10/22/23 11:25) diarrhea, vomiting Do you need a note to return to daycare/school/sports/work: No HPI HPI Comments History of Present Illness Details Patient tis a 68yo F who presents to office with rash to L flank She said onset a few days ago; 10 days Started as a small itchy red area Has gotten larger and still itchy No pain, 0/10 Denies known change in medicine, lotions, detergents, soaps, clothing etc No SOB, CP. throat tightness Has tried OTC lotion without relief No known tick bite or espouse to wood/outdoors No other complaints PFSH Medical History IBS (irritable bowel syndrome) Hypothyroid Abnormal CT of the abdomen Rash due to allergy Surgical History History of esophagogastroduodenoscopy (EGD) Hx of colonoscopy History of cholecystectomy History of hernia repair Family History Father Stomach cancer Skin cancer Mother Stroke Diabetes Hypertension Past heart attack Sister Diabetes Daughter Colon cancer Social History Housing: House Alcohol intake: never Patient Tobacco Use Status: Never used Tobacco Tobacco use type: Cigarette e-Cigarette/Vaping Use: Never Used Second Hand Smoke Exposure: No service: No Current occupational status: retired Current occupation: right hand dominant Cognitive needs: No Hearing needs: No Vision needs: Yes (Pt wears glasses.) Review of Systems Const Denies body aches, Reports chills, Denies fever(s) and Denies headache(s) Eyes Denies blurry vision ENT Denies headache(s), Denies sore throat and Denies throat swelling Card Denies chest pain and Denies dyspnea Resp Denies chest congestion, Denies cough, Denies pain with cough and Denies dyspnea Skin/Breast Reports pruritus and Reports rash Neuro Denies headache(s) Aller/Immun Denies throat swelling Physical Exam Vital Signs: Last Vital Signs Temp 97.4 F 10/22/23 11:28 Pulse 75 10/22/23 11:28 BP 110/70 10/22/23 11:28 Pulse Ox 98 10/22/23 11:28 BMI result Body Mass Index 30.9 General: Non-toxic, NAD. Speaking full sentences. Skin: Warm dry throughout. L flank patient is slightly raised patch of erythema without induration or fluctuance. No drainage, vesicles, or discharge Non-tender to palpation. + warm to touch. Approx 6inches x 5inches. No rashes or lesions seen elsewhere Eye: EOMI Respiratory: No respiratory distress Cardiac: RRR. MSK: Full ROM extremities. Neurology: A/O. No aphasia or facial droop. Gait without abnormality Psych: Good mood and affect Assessment & Plan Assessment & Plan (1) Cellulitis: Code(s): L03.90 - Cellulitis, unspecified Qualifiers: Site of cellulitis: trunk Site of cellulitis of trunk: abdominal wall Qualified Code(s): L03.311 - Cellulitis of abdominal wall Plan: Patient seen and evaluated. She is in no distress Rash x 10 days Getting larger, warm to palpation without abscess Not herpes zoster Will use Keflex as prescribed Discussed benadryl OTC as directed Avoid hot showers Any SOB, CP. worsening or concerns, go to ED immediately. Patient gave verbal understanding and had no additional questions or concerns at time of discharge All questions answered Medications: New cephalexin 500 mg PO Q12H 14 caps 0RF L03.90 - Cellulitis, unspecified Coding Level of Care Code Est Pt Level 3 (88186) Diagnoses Cellulitis of abdominal wall L03.311 Site of cellulitis: trunk Site of cellulitis of trunk: abdominal wall
[2023-10-22 11:28] VITALS: BP 110/70; PULSE 75; TEMP 36.3; O2SAT 98; BMI 30.9
== END 2023-10-22 13:12 | disposition home or self-care (01) ==
PROVIDERS: PCP Physician Assistant; Visit Provider Physician Assistant
DX: L03.311 Cellulitis of abdominal wall (principal)
CPT/HCPCS: 99213

== ENCOUNTER 2023-10-22 15:00 | Outpatient (RCR) | payer MEDICARE, SELFPAY ==
--- NOTE | 2023-09-17 15:57 | MHC.PT.EP ---
[facility] [place] Office [place] Office [place] Office [address] Jayce Ann [address] [phone] F: [phone] F: [phone] F: [phone] F: [phone] Physical Therapy Plan of Care Date of Evaluation: 09/16/23 Date of Surgery: Diagnosis: RIGHT RTC tear (MD Dx) Mild supraspinatus and infraspinatus tendinosis with fraying/partial tearing. Mild teres minor muscle atrophy. Mild proximal long head biceps tendinosis. Mod ACJ OA. Minimal subacromial subdeltoid bursitis. Degenerative fraying of the superior, posterosuperior, anterior, and anteroinferior labrum. Mild GHJ OA. (MRI results) Assessment: Patient is a pleasant 67 y.o. female who is referred to PT by Jorge Madison PA-C with Dx of RIGHT RTC tear. Her MRI results show mild supraspinatus and infraspinatus tendinosis with fraying/partial tearing. Mild teres minor muscle atrophy. Mild proximal long head biceps tendinosis. Mod ACJ OA. Minimal subacromial subdeltoid bursitis. Degenerative fraying of the superior, posterosuperior, anterior, and anteroinferior labrum. Mild GHJ OA. Patient impairments include pain, poor posture, limited ROM, weakness. Patient current functional limitations are sweeping the floor, reaching overhead to cabinet, wash/style her hair, reach behind back for toileting, stirring to cook. Patient will benefit from skilled PT to address aforementioned impairments and functional limitations to meet established goals. Frequency and Duration: The patient will be seen 2x/week for 4 weeks Short Term Goals: 2 weeks Patient demonstrates consistency and independence with HEP to self manage symptoms. Prison Goals: 4 weeks Patient presents with increased R shoulder flexion 130 degrees to be able to reach top of head for washing hair. Patient presenst with increased R shoulder rotation ER 60 degrees to reach behing back for toileting. k Treatment Plan: Modalities to reduce pain, spasms and effusion. Manual therapy to restore motion and function. Therapeutic exercise to improve strength and flexibility. Neuromuscular re-education for posture and balance. Therapeutic activities to return to functional activities of daily living. Electronically signed by: Christina Christy PT, DPT Please sign and return to therapist. Thank you for your referral.
--- NOTE | 2023-12-03 11:18 | MHC.PT.DC ---
[facility] [place] [facility] [place] Office [place] Office [address] Jayce Ann [address] [phone] F: [phone] F: [phone] F: [phone] F: [phone] Physical Therapy Discharge Report Diagnosis: RIGHT RTC tear (MD Ryan) Mild supraspinatus and infraspinatus tendinosis with fraying/partial tearing. Mild teres minor muscle atrophy. Mild proximal long head biceps tendinosis. Mod ACJ OA. Minimal subacromial subdeltoid bursitis. Degenerative fraying of the superior, posterosuperior, anterior, and anteroinferior labrum. Mild GHJ OA. (MRI results) Date of Surgery: Date of Evaluation: 09/16/23 Date of Discharge: 12/03/23 Treatments to Date: 4 Cancellations to Date: 3 No Shows to Date: Discharge Status: Independent with HEP Patient Elected to Stop Visit Non-compliance Discharge Summary: During her last PT treatment session the assessment readsLeny reports very minimal pain at end range shoulder flexion with pulleys. She does fatigue with more repetitions of shoulder strengthening with band exercises, mostly into ER. We discuss continuation of HEP for scapular strengthening and stability as well as maintaining gains made with ROM. She is discharged from PT at this time, she ceased attending on her own accord. Electronically signed by: Christina Christy, PT, DPT Please sign and return to therapist. Thank you for your referral.
== END 2023-12-03 11:19 | disposition home or self-care (01) ==
LOC: HO.PT 15:00
PROVIDERS: PCP Physician Assistant; Visit Provider Physician Assistant
DX: S46.011A Strain of muscle(s) and tendon(s) of the rotator cuff of right shoulder, initial encounter (principal)
CPT/HCPCS: 97110; 97140; 97161; 97530

== ENCOUNTER 2023-10-26 13:30 | Outpatient (REF) | payer MEDICARE, SELFPAY ==
--- NOTE | ~2023-10-26 | XR_ITS ---
EXAMINATION: XR RIGHT HUMERUS, RIGHT FOREARM AND RIGHT ELBOW CLINICAL INFORMATION: Pain COMPARISON: None available. TECHNIQUE: Frontal and lateral radiographs of the right forearm; frontal lateral and oblique radiographs of the right elbow; and frontal and lateral radiographs of the right humerus were acquired. FINDINGS: Examination of the right humerus shows no fracture, dislocation or bone lesion. There is no evidence of fracture or dislocation of the right elbow. No significant joint effusion is detected. Frontal and lateral radiographs show the radius and ulna are intact. No fracture, dislocation or bone lesion is evident. XR/XR forearm RT 2V IMPRESSION: Unremarkable plain radiographs of the right humerus, forearm and elbow
--- NOTE | ~2023-10-26 | XR_ITS ---
EXAMINATION: XR RIGHT HUMERUS, RIGHT FOREARM AND RIGHT ELBOW CLINICAL INFORMATION: Pain COMPARISON: None available. TECHNIQUE: Frontal and lateral radiographs of the right forearm; frontal lateral and oblique radiographs of the right elbow; and frontal and lateral radiographs of the right humerus were acquired. FINDINGS: Examination of the right humerus shows no fracture, dislocation or bone lesion. There is no evidence of fracture or dislocation of the right elbow. No significant joint effusion is detected. Frontal and lateral radiographs show the radius and ulna are intact. No fracture, dislocation or bone lesion is evident. XR/XR elbow RT 2V IMPRESSION: Unremarkable plain radiographs of the right humerus, forearm and elbow
--- NOTE | ~2023-10-26 | XR_ITS ---
EXAMINATION: XR RIGHT HUMERUS, RIGHT FOREARM AND RIGHT ELBOW CLINICAL INFORMATION: Pain COMPARISON: None available. TECHNIQUE: Frontal and lateral radiographs of the right forearm; frontal lateral and oblique radiographs of the right elbow; and frontal and lateral radiographs of the right humerus were acquired. FINDINGS: Examination of the right humerus shows no fracture, dislocation or bone lesion. There is no evidence of fracture or dislocation of the right elbow. No significant joint effusion is detected. Frontal and lateral radiographs show the radius and ulna are intact. No fracture, dislocation or bone lesion is evident. XR/XR humerus RT IMPRESSION: Unremarkable plain radiographs of the right humerus, forearm and elbow
== END 2023-10-26 13:31 | disposition home or self-care (01) ==
LOC: HO.XRAY 13:30
PROVIDERS: Visit Provider Physician Assistant
DX: M79.601 Pain in right arm (principal); M25.521 Pain in right elbow
CPT/HCPCS: 73060; 73070; 73090

== ENCOUNTER 2023-11-10 13:40 | Outpatient (REF) | payer OTHER, SELFPAY | END 2023-11-10 13:41 | disposition home or self-care (01) | LOC: HO.MAMMO 13:40 | PROVIDERS: Visit Provider Physician Assistant | DX: Z12.31 Encounter for screening mammogram for malignant neoplasm of breast (principal) | CPT/HCPCS: 77063; 77067 ==

== ENCOUNTER → 2023-11-10 14:30 | Outpatient (BNV) | payer OTHER, SELFPAY | PROVIDERS: Visit Provider Radiology Diagnostic Radiology | DX: Z12.31 Encounter for screening mammogram for malignant neoplasm of breast (principal) | CPT/HCPCS: 77063; 77067 ==

== ENCOUNTER → 2023-12-30 09:25 | Outpatient (BNVA) | payer OTHER, SELFPAY | PROVIDERS: Visit Provider Orthopaedic Surgery ==

== ENCOUNTER → 2023-12-31 11:48 | Outpatient (BNV) | payer OTHER, SELFPAY | PROVIDERS: PCP Physician Assistant; Visit Provider Internal Medicine Cardiovascular Disease | DX: R00.0 Tachycardia, unspecified (principal); I44.4 Left anterior fascicular block | CPT/HCPCS: 93010 ==

== ENCOUNTER → 2024-01-07 07:32 | Day surgery (SDC) | payer OTHER, SELFPAY ==
[2023-12-31 11:30] VITALS: BP 131/70; PULSE 115; RESP 20; O2SAT 95; BMI 30.8
--- NOTE | 2023-12-31 11:48 | ECG_ITS ---
Test Reason : PRE OP Blood Pressure : / mmHG Vent. Rate : 104 BPM Atrial Rate : 104 BPM P-R Int : 138 ms QRS Dur : 082 ms QT Int : 344 ms P-R-T Axes : 075 -57 064 degrees QTc Int : 452 ms Sinus tachycardia Left anterior fascicular block Minimal voltage criteria for LVH, may be normal variant ( Maud product ) Abnormal ECG When compared with ECG of 09-JUL-2007 08:37, Vent. rate has increased BY 40 BPM Left anterior fascicular block is now Present Referred By: Nathaniel Silva Electronically Signed By:GUMARO GUERRERO MD
[2023-12-31 12:22] LABS: Hematocrit 39.1 % (37.0-47.0); Hemoglobin 12.7 g/dl (12.0-16.0); Mean Corpuscular HGB Conc 32.5 g/dl (31.0-35.0); Mean Corpuscular Hemoglobin 28.7 pg (27.0-33.0); Mean Corpuscular Volume 88.3 fL (80.0-98.0); Platelet Count 218 X10*3/uL (160-400); Red Blood Count 4.43 X10*6/uL (4.20-5.50); White Blood Count 6.7 X10*3/uL (4.8-10.8)
[2023-12-31 12:57] LABS: Anion Gap 12 (12-20); Blood Urea Nitrogen 22 mg/dL (9-16); Calcium 9.4 mg/dL (8.4-10.2); Carbon Dioxide 28 mmol/L (22-29); Chloride 104 mmol/L (96-108); Creatinine Clr Calc Pharmacy 46.8; Estimated Glomerular Filt Rate 51; Glucose Random 119 mg/dL (60-115); Potassium 3.4 mmol/L (3.3-5.1); Sodium 141 mmol/L (135-145)
--- NOTE | 2024-01-04 13:17 | P.CONAN_ITS ---
Documented by User: Betty Peck NP 01/05/24 12:18 HPI - Anesthesia Eval Consult details Narrative: 68yo F for Right Shoulder Arthroscopy, distal clavicle excision, acromioplasty, possible rotator cuff repair Seen in PAT by Dr Silva 12/31/23. Per nursing note, pt with cough/cold symptoms. Verbalized understanding that if symptoms not improved by DOS, case will be postponed until optimized. 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 Rev'd by Dr Silva PMFSH Active Problems Active Problems: All Active Problems (Updated 12/31/23 @ 11:22 by Seema Noyola, RN) Right elbow pain (Acute) Right arm pain (Acute) Cellulitis (Acute) Impingement of right shoulder (Acute) HLD (hyperlipidemia) (Acute) Right rotator cuff tear (Acute) H. pylori duodenitis (Acute) Diverticulosis of colon (Acute) Acid reflux (Acute) Family history of colon cancer (Acute) Lumbar spine pain (Acute) Lower thoracic back pain (Acute) Dermatitis (Acute) Chronic diarrhea (Acute) Nausea (Acute) Breast cancer screening (Acute) Colon cancer screening (Acute) Thoracic spine pain (Acute) Urticaria (Acute) Rash due to allergy (Acute) Annual physical exam (Acute) Obese (Acute) RUQ abdominal pain (Acute) Hypothyroidism (Acute) HTN (hypertension) (Acute) Abnormal CT of the abdomen (Acute) Past Medical History Medical History (Updated 12/31/23 @ 11:22 by Seema Noyola, RN) GERD (gastroesophageal reflux disease) Depression Cough HTN (hypertension) IBS (irritable bowel syndrome) Hypothyroid Abnormal CT of the abdomen Family History Family History Father Stomach cancer Skin cancer Mother Stroke Diabetes Hypertension Past heart attack Sister Diabetes Daughter Colon cancer Family history of problems with anesthesia: No Surgical History Surgical History (Updated 12/31/23 @ 11:46 by Seema Noyola, RN) Hx of section History of esophagogastroduodenoscopy (EGD) Hx of colonoscopy History of cholecystectomy History of hernia repair History of Problems with Anesthesia: No Social History Social History Housing: House Are you a primary before and after school daycare worker to a significant other at home: No Do you presently have visiting nurse or other home services: No Alcohol intake: never Patient Tobacco Use Status: Never used Tobacco Tobacco use type: Cigarette e-Cigarette/Vaping Use: Never Used Second Hand Smoke Exposure: No Use of substances other than those prescribed or required for medical reasons: No Have you been hit, kicked, punched, or otherwise hurt by someone within the past year? If so, by whom?: No Advance Directives: No Advance Directives Information Provided: Yes Advance Directives on File: No Recently lost weight without trying: No Eating poorly because of decreased appetite: No Nutrition Risks: No Nutritional Risk Patient : No : No Poor oral hygiene: Yes (full upper denture and lower partial denture) service: No Current occupational status: retired Current occupation: right hand dominant Cognitive needs: No Hearing needs: No Vision needs: Yes (Pt wears glasses.) Meds Allergies Allergy/AdvReac Type Severity Reaction Status Date / Time lisinopril Allergy Unknown shortness Verified 01/07/24 08:31 of breath coconut Allergy Unknown diarrhea, Uncoded 01/07/24 08:31 vomiting Exam Height,Weight and Vital Signs: Height 5 ft 1 in Weight 73.936 kg Last Vital Signs Pulse 115 H 12/31/23 11:30 Resp 20 12/31/23 11:30 BP 131/70 12/31/23 11:30 Pulse Ox 95 12/31/23 11:30 O2 Del Method Room Air 12/31/23 11:30 Pertinent Lab Results Pertinent Lab Results: Laboratory Tests 12/31/23 12:06 WBC 6.7 RBC 4.43 Hgb 12.7 Hct 39.1 MCV 88.3 MCH 28.7 MCHC 32.5 RDW 14.0 Plt Count 218 MPV 10.0 Absolute Nucleated RBC 0.000 Nucleated RBC % (auto) 0.0 Sodium 141 Potassium 3.4 Chloride 104 Carbon Dioxide 28 Anion Gap 12 BUN 22 H Creatinine 1.07 Estim Creat Clear Calc 46.8 Estimated GFR 51 Random Glucose 119 H Calcium 9.4 Narrative Narrative: EKG 12/2023 Vent. Rate : 104 BPM Atrial Rate : 104 BPM P-R Int : 138 ms QRS Dur : 082 ms QT Int : 344 ms P-R-T Axes : 075 -57 064 degrees QTc Int : 452 ms Sinus tachycardia Left anterior fascicular block Minimal voltage criteria for LVH, may be normal variant ( Rivera product ) Abnormal ECG When compared with ECG of 09-JUL-2007 08:37, Vent. rate has increased BY 40 BPM Left anterior fascicular block is now Present Assessment and Plan Assessment Anesthesia Assessment: Chart Reviewed Final Anesthetic Review Family History of Problems with Anesthesia: No History of Problems with Anesthesia: No Documented by User: Idalia Lees MD 01/07/24 08:48 PMFSH Past Medical History Medical History (Updated 12/31/23 @ 11:22 by Seema Noyola, RN) GERD (gastroesophageal reflux disease) Depression Cough HTN (hypertension) IBS (irritable bowel syndrome) Hypothyroid Abnormal CT of the abdomen Family History Family History Father Stomach cancer Skin cancer Mother Stroke Diabetes Hypertension Past heart attack Sister Diabetes Daughter Colon cancer Surgical History Surgical History (Updated 12/31/23 @ 11:46 by Seema Noyola, RN) Hx of section History of esophagogastroduodenoscopy (EGD) Hx of colonoscopy History of cholecystectomy History of hernia repair Social History Social History Housing: House Are you a primary before and after school daycare worker to a significant other at home: No Do you presently have visiting nurse or other home services: No Alcohol intake: never Patient Tobacco Use Status: Never used Tobacco Tobacco use type: Cigarette e-Cigarette/Vaping Use: Never Used Second Hand Smoke Exposure: No Use of substances other than those prescribed or required for medical reasons: No Have you been hit, kicked, punched, or otherwise hurt by someone within the past year? If so, by whom?: No Advance Directives: No Advance Directives Information Provided: Yes Advance Directives on File: No Recently lost weight without trying: No Eating poorly because of decreased appetite: No Nutrition Risks: No Nutritional Risk Patient : No : No Poor oral hygiene: Yes (full upper denture and lower partial denture) service: No Current occupational status: retired Current occupation: right hand dominant Cognitive needs: No Hearing needs: No Vision needs: Yes (Pt wears glasses.) Meds Allergies Allergy/AdvReac Type Severity Reaction Status Date / Time lisinopril Allergy Unknown shortness Verified 01/07/24 08:31 of breath coconut Allergy Unknown diarrhea, Uncoded 01/07/24 08:31 vomiting Assessment and Plan Anesthetic Plan Anesthetic Plan: Other (pt with continous cough with sputum, appears bronchial, discussed with carlos who states it is elective procedure and best done when pt asymptomatic. pt to see PCP ? cxr)
== END ==
PROVIDERS: Anesthesiology; PCP Physician Assistant; Visit Provider Orthopaedic Surgery
DX: M75.41 Impingement syndrome of right shoulder (principal); Z53.8 Procedure and treatment not carried out for other reasons; R05.9 Cough, unspecified
CPT/HCPCS: 36415; 80048; 85027; 93005

== ENCOUNTER 2024-01-11 09:57 | Outpatient (REF) | payer OTHER, SELFPAY ==
--- NOTE | ~2024-01-11 | XR_ITS ---
EXAMINATION: XR CHEST CLINICAL INFORMATION: Cough, unspecified. COMPARISON: 03/01/2019 TECHNIQUE: Two views of the chest were obtained. FINDINGS: Lung volumes are low. There is no gross pneumothorax. Dextroscoliosis of the thoracolumbar spine. Surgical clips in the right upper quadrant of the abdomen. Increased streaky opacities in the bilateral mid to lower lungs, possibly representing an infectious/inflammatory process and/or atelectasis/scar. Degenerative changes in the thoracic spine. No gross pleural effusion. XR/XR chest 2V IMPRESSION: 1. Increased streaky opacities in the bilateral mid to lower lungs, possibly representing an infectious/inflammatory process and/or atelectasis/scar. 2. Recommend follow up imaging in 4-6 weeks to confirm resolution and exclude underlying pathology.
== END 2024-01-11 09:58 | disposition home or self-care (01) ==
LOC: HO.XRAY 09:57
PROVIDERS: PCP Physician Assistant; Visit Provider Physician Assistant
DX: R05.9 Cough, unspecified (principal)
CPT/HCPCS: 71046

== ENCOUNTER 2024-01-19 13:06 | Outpatient (AMB) | payer OTHER, SELFPAY ==
--- NOTE | 2024-01-19 13:08 | AM.OFFWIN_ITS ---
Intake Vital Signs 01/19/24 13:09 Height 5 ft 1 in BP 140/72 H Blood Pressure Location Lt brachial Position Sitting Pulse 87 Pulse Source Pulse Oximeter Temp 97.9 F Temp Source Temporal Artery Scan Pulse Oximetry (%) 97 Oxygen Delivery Method Room Air Intake Visit Reasons: EP ?Bronchitis Intake Note: pt is here for c/o cough for 2 weeks with phelm Patient Tobacco Use Status: Never used Tobacco Allergies lisinopril Allergy (Unknown, Verified 01/19/24 13:15) shortness of breath coconut Allergy (Unknown, Uncoded 01/07/24 08:31) diarrhea, vomiting Do you need a note to return to daycare/school/sports/work: No HPI HPI Comments History of Present Illness Details 68 y/o female patient who presents to [facility] with c/o productive cough for 2 weeks. Pt had Chest Xray done 01/10 which showed : Increased streaky opacities in the bilateral mid to lower lungs, possibly representing an infectious/inflammatory process and/or atelectasis/scar. Pt was told to come into [facility] for Treatment. Denies fevers, chills, nausea or vomiting. [facility] Medical History (Updated 01/19/24 @ 13:42 by Lesly Landaverde NP) GERD (gastroesophageal reflux disease) Depression Cough HTN (hypertension) IBS (irritable bowel syndrome) Hypothyroid Abnormal CT of the abdomen Surgical History Hx of section History of esophagogastroduodenoscopy (EGD) Hx of colonoscopy History of cholecystectomy History of hernia repair Family History Father Stomach cancer Skin cancer Mother Stroke Diabetes Hypertension Past heart attack Sister Diabetes Daughter Colon cancer Social History Housing: House Are you a primary care assistant to a significant other at home: No Do you presently have visiting nurse or other home services: No Alcohol intake: never Patient Tobacco Use Status: Never used Tobacco Tobacco use type: Cigarette e-Cigarette/Vaping Use: Never Used Second Hand Smoke Exposure: No service: No Current occupational status: retired Current occupation: right hand dominant Cognitive needs: No Hearing needs: No Vision needs: Yes (Pt wears glasses.) Review of Systems Const All systems reviewed & are unremarkable except as noted in HPI and below Physical Exam Vital Signs: Last Vital Signs Temp 97.9 F 01/19/24 13:09 Pulse 87 01/19/24 13:09 BP 140/72 H 01/19/24 13:09 Pulse Ox 97 01/19/24 13:09 Oxygen Delivery Method Room Air 01/19/24 13:09 Const General: comfortable and no acute distress Orientation/consciousness: patient oriented x3 HEENT Head: Yes normocephalic Ears: external ears normal and TM's normal bilaterally General nose exam: Abnormal mucous membranes and turbinates present boggy and erythematous Face and sinus: Yes sinuses nontender Mouth: moist mucous membranes Throat: Yes posterior oropharynx normal Resp Effort & Inspection: normal respiratory effort, able to speak in complete sentences, no audible wheezes and Actively coughing Quality: productive Auscultation: clear to auscultation bilaterally, no crackles, no rales, no rhonchi and no wheezes Cardio Rate: regular rate Rhythm: regular rhythm Neuro General: patient oriented x3 Assessment & Plan Assessment & Plan (1) Cough: Code(s): R05.9 - Cough, unspecified Qualifiers: Cough type: acute Qualified Code(s): R05.1 - Acute cough Plan: - Will Tx empirically for Pneumonia today. - OTC cough medicines - Warm fluids with honey Plan - Will Tx empirically for Pneumonia today. - OTC cough medicines - Warm fluids with honey Medications: New azithromycin 500 mg PO DAILY 3 tabs 0RF cough 3 days R05.9 - Cough, unspecified amoxicillin 500 mg PO BID 10 caps 0RF 5 days R05.9 - Cough, unspecified Coding Level of Care Code Est Pt Level 3 (70742) Diagnoses Acute cough R05.1 Cough type: acute Time Spent (min) 15
[2024-01-19 13:09] VITALS: BP 140/72; PULSE 87; TEMP 36.6; O2SAT 97
== END 2024-01-19 14:05 | disposition home or self-care (01) ==
PROVIDERS: PCP Physician Assistant; Visit Provider Nurse Practitioner Family
DX: R05.1 Acute cough (principal)
CPT/HCPCS: 99213

== ENCOUNTER 2024-02-16 10:43 | Outpatient (AMB) | payer MEDICARE, MEDICAID, SELFPAY ==
--- NOTE | 2024-02-16 10:48 | A.OFFPC_ITS ---
Vital Signs 02/16/24 11:03 02/16/24 11:39 Height 4 ft 10.27 in Weight 168 lb BMI 34.8 BP 172/82 H 140/80 H Blood Pressure Location Lt brachial Position Sitting Pulse 82 Pulse Source Pulse Oximeter Pulse Oximetry (%) 98 Oxygen Delivery Method Room Air Intake Visit Reasons: Annual Exam Intake Note: The patient is present today for a physical examination. They express concern about experiencing hearing loss in the right ear over the past week, accompanied by sensations of fluid and ringing in the ear. 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 Patient has a past medical history significant for hypertension, hypothyroidism. Concerns--> continues with right shoulder pain and decreased range of motion. She is still interested in getting a surgical repair for right shoulder rotator cuff. . Hypertension:? Patient's blood pressure today elevated, repeat blood pressure testing much improved. She does have some right ear discomfort at this time. She reports not regularly checking her blood pressure at home.? She denies any headaches, chest discomfort, shortness of breath or dizziness. .. Borderline hyperlipidemia: Does have a history borderline high cholesterol mostly in the setting of hypo functioning thyroid. Will recheck lipid panel to ensure stable. Goal LDL to remain below 160 . Hypothyroidism:? Patient's TSH is stable, patient has been clinically euthyroid.? Will continue her current dose of levothyroxine Colon cancer screening: Colonoscopy done in 2022, repeat 5 years due to family history of colon cancer Vaccines: Up-to-date with COVID vaccine, tetanus vaccine, utd with pneumonia vaccine and considering shingles vaccine Mammogram: Done in October 2023 BI-RADS 1 Laboratory Tests 02/10/23 09/13/23 12/31/23 06:13 09:35 12:06 RBC 4.43 Creatinine 1.07 Random Glucose 119 H Cholesterol 268 230 H TSH 3.48 PFSH Medical History GERD (gastroesophageal reflux disease) Depression Cough HTN (hypertension) IBS (irritable bowel syndrome) Hypothyroid Abnormal CT of the abdomen Surgical History Hx of section History of esophagogastroduodenoscopy (EGD) Hx of colonoscopy History of cholecystectomy History of hernia repair Family History Father Stomach cancer Skin cancer Mother Stroke Diabetes Hypertension Past heart attack Sister Diabetes Daughter Colon cancer Social History Housing: House Are you a primary health care marketing manager to a significant other at home: No Do you presently have visiting nurse or other home services: No Alcohol intake: never Patient Tobacco Use Status: Never used Tobacco Tobacco use type: Cigarette e-Cigarette/Vaping Use: Never Used Second Hand Smoke Exposure: No service: No Current occupational status: retired Current occupation: right hand dominant Cognitive needs: No Hearing needs: No Vision needs: Yes (Pt wears glasses.) Questionnaire PHQ-9 Over the last 2 weeks, how often have you been bothered by any of the following problems? 1. Little interest or pleasure in doing things: more than half the days 2. Feeling down, depressed, or hopeless: nearly every day 3. Trouble falling or staying asleep, or sleeping too much: nearly every day 4. Feeling tired or having little energy: nearly every day 5. Poor appetite or overeating: nearly every day 6. Feeling bad about yourself - or that you are a failure or have let yourself or your family down: more than half the days 7. Trouble concentrating on things, such as reading the newspaper or watching television: not at all 8. Moving or speaking so slowly that other people could have noticed. Or the opposite - being so fidgety or restless that you have been moving around a lot more than usual: nearly every day 9. Thoughts that you would be better off or of hurting yourself in some way: several days Total score: 20 Depression Screening Interpretation: Positive Depression Screening Follow-up: Existing condition and Declines treatment Depression Screening Done: Yes 22587 - PHQ-9 Billing: Yes Source: Developed by Drs. Julio Napier, Lauren Castillo, Dung Fonseca and colleagues, with an educational rhonda from [employer]. Thrive Questionnaire Date Thrive assessed: 02/16/24 I am a: Patient What is your living situation today?: I have a steady place to live Within the past 12 months, did the food you bought not last and you didn't have the money to get more?: Never true Within the past 12 months, did you worry whether your food would run out before you got money to buy more?: Never true Do you have trouble paying for medicines?: No Do you have trouble getting transportation to medical appointments?: No Do you have trouble paying your heating and electricity bill?: No Do you have trouble taking care of your child, family member or friend?: No Do you have trouble with day-to-day activities such as bathing, preparing meals, shopping, managing finances, etc.?: No Are you currently unemployed and looking for a job?: No Are you interested in more education?: No Please select the resources that you would like help with: None Currently or been in a relationship where the following occur: no concerns reported THRIVE Score: 0 AUDIT C Alcohol Use Questionnaire (AUDIT-C) 1. How often do you have a drink containing alcohol?: Never 3. How often do you have six or more drinks on one occasion?: Never Total Score: 0 IMMANUEL-7 AMB Questionnaire IMMANUEL-7 Date IMMANUEL - 7 assessed: 02/16/24 Feeling nervous, anxious, or on edge: 3 = Nearly every day Not being able to stop or control worryin = Nearly every day Worrying too much about different things: 3 = Nearly every day Trouble relaxin = Nearly every day Being so restless that it is hard to sit still: 3 = Nearly every day Becoming easily annoyed or irritable: 3 = Nearly every day Feeling afraid as if something awful might happen: 2 = More than half the days Total IMMANUEL-7 score (0-4 normal; 5-9 mild; 10-14 moderate; 15-21 severe): 20 Source: Developed by Drs. Julio Napier, Lauren Castillo, Dung Fonseca and colleagues, with an educational rhonda from [employer]. IMMANUEL-7 Assessment Billing IMMANUEL-7 Assessment Tool: IMMANUEL-7 Assessment 35265 Review of Systems Const Denies body aches, Denies chills, Denies excessive sweating, Denies fatigue, Denies fever(s) and Denies headache(s) Eyes Denies blurry vision ENT Denies dysphagia, Denies vertigo, Denies dizziness, Denies headache(s), Denies hearing loss and Denies tinnitus Card Denies chest pain, Denies chest pain with activity, Denies syncope, Denies irregular heart rhythm and Denies dyspnea Resp Denies chest congestion, Denies cough, Denies hemoptysis, Denies dyspnea and Denies wheezing GI Denies abdominal pain, Denies melena, Denies hematochezia, Denies coffee ground emesis, Denies dysphagia, Denies diarrhea, Denies nausea and Denies vomiting Denies urinary frequency, Denies dysuria, Denies urinary hesitancy and Denies urinary urgency Musc Denies arthralgias, Denies limited range of motion, Denies muscle cramps and Denies muscle weakness Skin/Breast Denies rash and Denies skin ulcer Neuro Denies Abnormal speech present, Denies confusion, Denies vertigo, Denies dizziness, Denies syncope, Denies headache(s), Denies memory loss and Denies seizure-like activity Psych Denies anxiety, Denies confusion, Denies depression, Denies memory loss, Denies panic attacks and Denies paranoia Endo Denies excessive sweating, Denies fatigue, Denies flushing, Denies polydipsia and Denies polyuria Aller/Immun Denies wheezing Physical exam (Primary Care) Vital Signs: Last Vital Signs Pulse 82 02/16/24 11:03 BP 140/80 H 02/16/24 11:39 Pulse Ox 98 02/16/24 11:03 Oxygen Delivery Method Room Air 02/16/24 11:03 BMI result Body Mass Index 34.8 BMI Assessment/Plan discussion: High BMI High, discussed plan: lifestyle, weight reduction, dietary and physical activity Tobacco/Smoking Status: Tobacco use Status Tobacco use date assessed 02/04/23 02/16/24 10:48 Patient Tobacco Use Status Never used Tobacco 02/16/24 10:48 Tobacco use type Cigarette 02/16/24 10:48 e-Cigarette/Vaping Use Never Used 02/16/24 10:48 PHQ-9: PHQ-9 Score PHQ-9: Total score 02/16/24 11:49 Depression Screening Interpretation: Positive Depression Screening Follow-up: Existing condition and Declines treatment Thrive Assessment: Date of Thrive Assessment Date Thrive assessed 02/16/24 02/16/24 10:58 Currently or been in a relationship where the following occur: no concerns reported Const General: cooperative, comfortable, no acute distress, alert and awake; No confusion Orientation/consciousness: oriented to person, oriented to place, patient oriented x3 and No confusion HENMT Other: RIGHT EAR: EXTERNAL CANAL SLIGHTLY ERYTHEMATOUS Head: Yes normocephalic Ears: external ears normal and TM's normal bilaterally Face and sinus: No sinus tenderness Mouth: Normal oral and palatal mucosa present and tongue normal Teeth and gingiva: dentition normal and gingiva normal Throat: Yes posterior oropharynx normal, Yes tonsils normal and Yes uvula midline Eyes Conjunctivae: conjunctivae normal Sclerae: sclerae normal Pupils: Equal, round and reactive pupils present EOM: EOMs intact bilaterally Direct Ophthalmoscopy: No no photophobia Neck Neck: Yes no lymphadenopathy, No tender and Yes no JVD Thyroid: Thyroid normal Carotids: no bruits Chest Chest palpation & inspection: no tenderness Resp Effort & Inspection: normal respiratory effort, no audible wheezes, not labored and no stridor Auscultation: no crackles, no rales, no rhonchi and no wheezes Cardio Jugular venous distension: no JVD Rate: regular rate, not bradycardic and not tachycardic Rhythm: regular rhythm Bruits: no carotid bruits Peripheral pulses: Peripheral pulses 2+ throughout GI Inspection: Yes normal to inspection, No abdominal wall ecchymosis and No visible herniation Palpation (GI): Soft to palpation, nontender, no guarding, not rigid and No hepatosplenomegaly present Auscultation: normoactive bowel sounds General: Yes no CVA tenderness Back/Spine/Pelvis Back: no CVA tenderness and No back tenderness Cervical Spine: cervical ROM normal Thoracic/Lumbar Spine: thoracic and lumbar spine normal to inspection, straight leg raise negative bilaterally, No thoraco-lumbar ROM limited and No lumbar spinal tenderness Skin Lesions: no lesions Rashes: no rashes Wounds: no wounds Neuro General: oriented to person, oriented to place, patient oriented x3, CN's II-XI intact bilaterally and No confusion Cranial nerves: Yes Equal, round and reactive pupils present and Yes Normal accommodation reflex present Cognition (Neuro): normal cognition Speech: No Abnormal speech present Gait exam (Neuro): Normal gait present Motor exam (neuro): 5/5 motor strength present throughout Extrem Right upper extremity: full ROM; no cyanosis Left upper extremity: full ROM; no cyanosis Right lower extremity: no edema Left lower extremity: no edema Psych Appearance: grossly normal Mental Status: mental status grossly normal Affect: normal affect Attitude: cooperative Thought process: Normal thought process present Assessment and Plan Assessment & Plan (1) Annual physical exam: Code(s): Z00.00 - Encounter for general adult medical examination without abnormal findings (2) HTN (hypertension): Code(s): I10 - Essential (primary) hypertension Qualifiers: Hypertension type: essential hypertension Qualified Code(s): I10 - Essential (primary) hypertension Plan: Patient's blood pressure elevated today in office, repeat blood pressure testing improved. she does not regularly monitor blood pressure at home. She does have some ear discomfort today. will continue her current dose of amlodipine with goal blood pressure be below 140/90 (3) Hypothyroidism: Code(s): E03.9 - Hypothyroidism, unspecified Qualifiers: Hypothyroidism type: unspecified Qualified Code(s): E03.9 - Hypothyroidism, unspecified Plan: Patient's most recent TSH stable. Will continue her current dose of levothyroxine 125 mcg. Continues to be chemically and clinically euthyroid. Will continue to follow TSH (4) Otitis externa: Code(s): H60.90 - Unspecified otitis externa, unspecified ear Qualifiers: Chronicity: unspecified Laterality: right Otitis externa type: unspecified type Qualified Code(s): H60.91 - Unspecified otitis externa, right ear Plan: Patient's external canal erythematous. Will supply patient with antibiotic to [facility] [place] if symptoms ear congestion and pain worsened. (5) Family history of colon cancer: Comment: Daughter 30's Code(s): Z80.0 - Family history of malignant neoplasm of digestive organs Plan: Patient reports her daughter diagnosed colon cancer. Patient underwent colonoscopy in 2022, normal needed repeat 5 years due to family history colon cancer . (6) Impingement of right shoulder: Code(s): M25.811 - Other specified joint disorders, right shoulder Plan: Continues to have right shoulder pain and decreased range of motion. She was due for rotator cuff repair though can not have surgery done due to bronchitis. She will call back orthopedics to reschedule surgical fix. (7) IMMANUEL (generalized anxiety disorder): Code(s): F41.1 - Generalized anxiety disorder Plan: Patient's IMMANUEL-7 score positive for anxiety which has been existing condition for her. She has not interested in mental health medication or cognitive behavioral therapy at this time. She reports she is able to manage her mental health on her own. (8) MDD (major depressive disorder), recurrent episode, moderate: Code(s): F33.1 - Major depressive disorder, recurrent, moderate Plan: Patient's PHQ-9 score positive for depression which has been existing condition for her. Again is not interested in mental health medication or mental health therapy. Orders: Orders TSH reflex Free T4 Today E03.9 - Hypothyroidism, unspecified Lipid Panel Today E78.5 - Hyperlipidemia, unspecified Microalbumin, Random (w Creat) Today I10 - Essential (primary) hypertension Comprehensive [place]. Panel Fast Today E78.5 - Hyperlipidemia, unspecified Medications: New cetirizine 10 mg PO DAILY 90 tabs 1RF allergy symptoms 90 days amoxicillin 500 mg PO Q8H 15 caps 0RF 5 days H60.90 - Unspecified otitis externa, unspecified ear Refilled amlodipine 10 mg PO DAILY 90 tabs 1RF 90 days I10 - Essential (primary) hypertension Coding Level of Care Code Est Pt Prev Care >65y(03167) Diagnoses Annual physical exam Z00.00 Essential hypertension I10 Hypertension type: essential hypertension Hypothyroidism, unspecified type E03.9 Hypothyroidism type: unspecified Otitis externa of right ear, unspecified chronicity, unspecified type H60.91 Chronicity: unspecified Laterality: right Otitis externa type: unspecified type Family history of colon cancer Z80.0 Impingement of right shoulder M25.811 IMMANUEL (generalized anxiety disorder) F41.1 MDD (major depressive disorder), recurrent episode, moderate F33.1 Additional Codes IMMANUEL-7 Assessment Billing - IMMANUEL-7 Assessment Tool: IMMANUEL-7 Assessment 03258 ([id number])
[2024-02-16 11:03] VITALS: BP 172/82; PULSE 82; O2SAT 98; BMI 34.8
[2024-02-16 11:39] VITALS: BP 140/80
== END 2024-02-16 11:43 | disposition home or self-care (01) ==
PROVIDERS: Visit Provider Physician Assistant
DX: Z00.00 Encounter for general adult medical examination without abnormal findings (principal); F33.1 Major depressive disorder, recurrent, moderate; I10 Essential (primary) hypertension; E03.9 Hypothyroidism, unspecified; H60.91 Unspecified otitis externa, right ear; Z80.0 Family history of malignant neoplasm of digestive organs; M25.811 Other specified joint disorders, right shoulder; F41.1 Generalized anxiety disorder
CPT/HCPCS: 99397

== ENCOUNTER 2024-02-19 08:05 | Outpatient (REF) | payer OTHER, SELFPAY ==
[2024-02-19 09:23] LABS: Creatinine Urine 262.32 mg/dL; Microalbum/Creatinine Ratio Ur 9.9 ug/mg cr (<30)
[2024-02-19 09:52] LABS: Alanine Aminotransferase 13 U/L (0-31); Albumin Level 4.2 g/dL (3.5-5.0); Alkaline Phosphatase 87 U/L (39-117); Anion Gap 15 (12-20); Aspartate Amino Transferase 20 U/L (5-31); Bilirubin Total 0.4 mg/dL (0.0-1.0); Blood Urea Nitrogen 19 mg/dL (9-16); Calcium 9.7 mg/dL (8.4-10.2); Carbon Dioxide 25 mmol/L (22-29); Chloride 109 mmol/L (96-108); Cholesterol 268 mg/dL (<200); Estimated Glomerular Filt Rate > 60; Glucose Fasting 105 mg/dL (60-99); HDL Cholesterol 50 mg/dL (>40); LDL Cholesterol Calculated 160 mg/dL (<100); Potassium 3.5 mmol/L (3.3-5.1); Sodium 145 mmol/L (135-145); Total Protein 7.9 g/dL (6.5-8.0); Triglycerides 291 mg/dL (<150)
[2024-02-19 10:08] LABS: TSH reflex Free T4 3.83 uIU/mL (0.32-4.0)
== END 2024-02-19 08:06 | disposition home or self-care (01) ==
LOC: HO.LAB 08:05
PROVIDERS: PCP Physician Assistant; Visit Provider Physician Assistant
DX: E03.9 Hypothyroidism, unspecified (principal); I10 Essential (primary) hypertension; E78.5 Hyperlipidemia, unspecified
CPT/HCPCS: 36415; 80053; 80061; 82043; 82570; 84443

== ENCOUNTER 2024-05-16 14:28 | Outpatient (AMB) | payer OTHER, SELFPAY ==
--- NOTE | 2024-05-16 14:34 | MHC.OFFWIV ---
Intake Vital Signs 05/16/24 14:35 Height 4 ft 10 in Weight 164 lb BMI 34.3 BP 128/68 Blood Pressure Location Rt brachial Position Sitting Pulse 91 Pulse Source Pulse Oximeter Temp 98.2 F Temp Source Oral Pulse Oximetry (%) 98 Oxygen Delivery Method Room Air Intake Visit Reasons: lower left back pain Intake Note: Pt c/o lower LT back pain. Started Wednesday. Progressively worse. Hard to get out of bed Patient Tobacco Use Status: Never used Tobacco Allergies lisinopril Allergy (Unknown, Verified 05/16/24 14:35) shortness of breath coconut Allergy (Unknown, Uncoded 05/16/24 14:35) diarrhea, vomiting Do you need a note to return to daycare/school/sports/work: No HPI HPI Comments History of Present Illness Details 68-year-old female comes in today complaining of left-sided low back pain times the last 2 days. She states she does have some radiating pain into her SI joint. She states she had no particular injury or trauma to the area but does do a lot of heavy work at home and clean the bathtub on Wednesday and the onset of this pain was Wednesday denies any paresthesias numbness tingling in the lower extremities denies any change in her bowel or bladder habits. [facility] Medical History GERD (gastroesophageal reflux disease) Depression Cough HTN (hypertension) IBS (irritable bowel syndrome) Hypothyroid Abnormal CT of the abdomen Surgical History Hx of section History of esophagogastroduodenoscopy (EGD) Hx of colonoscopy History of cholecystectomy History of hernia repair Family History Father Stomach cancer Skin cancer Mother Stroke Diabetes Hypertension Past heart attack Sister Diabetes Daughter Colon cancer Social History Housing: House Are you a primary school childcare attendant to a significant other at home: No Do you presently have visiting nurse or other home services: No Alcohol intake: never Patient Tobacco Use Status: Never used Tobacco Tobacco use type: Cigarette e-Cigarette/Vaping Use: Never Used Second Hand Smoke Exposure: No service: No Current occupational status: retired Current occupation: right hand dominant Cognitive needs: No Hearing needs: No Vision needs: Yes (Pt wears glasses.) Review of Systems Const All systems reviewed & are unremarkable except as noted in HPI and below Physical Exam Vital Signs: Last Vital Signs Temp 98.2 F 05/16/24 14:35 Pulse 91 05/16/24 14:35 BP 128/68 05/16/24 14:35 Pulse Ox 98 05/16/24 14:35 Oxygen Delivery Method Room Air 05/16/24 14:35 BMI result Body Mass Index 34.3 Const General: healthy appearing and acute distress mild General: Yes no CVA tenderness Back/Spine/Pelvis Back: no CVA tenderness Cervical Spine: normal cervical lordosis Thoracic/Lumbar Spine: thoracic and lumbar spine normal to inspection, straight leg raise negative bilaterally, bend over test abnormal, pain with thoraco-lumbar ROM, paraspinal muscle tenderness and lumbar spinal tenderness Sacroiliac joints: on the left Neuro Cranial nerves: Yes CN's II-XII intact bilaterally Gait exam (Neuro): Normal gait present Motor exam (neuro): 5/5 motor strength present throughout Assessment & Plan Assessment & Plan (1) Strain of lumbar paraspinal muscle: Code(s): S39.012A - Strain of muscle, fascia and tendon of lower back, initial encounter Plan: I ordered a muscle relaxer for the patient and advised some gentle [id number] exercises such as ambulation. She can use salonpas patches as needed and follow up with her PCP Plan See plan Medications: New cyclobenzaprine 5 mg PO Q12H 10 tabs 0RF Coding Level of Care Code Est Pt Level 3 (39399) Diagnoses Strain of lumbar paraspinal muscle S39.012A
[2024-05-16 14:35] VITALS: BP 128/68; PULSE 91; TEMP 36.8; O2SAT 98; BMI 34.3
== END 2024-05-16 14:56 | disposition home or self-care (01) ==
PROVIDERS: PCP Physician Assistant; Visit Provider Physician Assistant Medical
DX: S39.012A Strain of muscle, fascia and tendon of lower back, initial encounter (principal)
CPT/HCPCS: 99213

== ENCOUNTER 2024-08-21 10:32 | Outpatient (AMB) | payer OTHER, SELFPAY ==
[2024-08-21 10:38] VITALS: BP 140/70; PULSE 94; O2SAT 96; BMI 34.1
--- NOTE | 2024-08-21 10:38 | MHC.PC.OV ---
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 Required: No Accompanied by: Self / Same As Patient Allergies lisinopril Allergy (Unknown, Verified 08/21/24 10:54) shortness of breath coconut Allergy (Unknown, Uncoded 08/21/24 10:54) diarrhea, vomiting Medication List - Last Reconciled 08/21/24 by Jorge Madison PA-C amlodipine 10 mg PO DAILY 90 days atorvastatin 10 mg PO DAILY cetirizine 10 mg PO DAILY 90 days cyclobenzaprine 5 mg PO Q12H levothyroxine 125 mcg PO DAILY omeprazole 20 mg PO DAILY oxycodone 10 mg (2 x 5 mg) PO Q6H PRN Tobacco use date assessed: 02/04/23 HPI f/u Hypotyroid and HTN HPI Details Patient is a 68-year-old female here today for a follow-up visit.? Patient has a past medical history significant for hypertension, hypothyroidism. Concerns--> she continues to have an intermittent sensation of burning over her right side of neck. She has not have any skin manifestation of redness or blisters. She has used moisturizers in the area and cool compress which though help temporarily. She denies any stiffness or pain in her neck. . Hypertension:? Patient's blood pressure slightly elevated today, repeat blood pressure testing much improved. She does have some right ear discomfort at this time. She reports not regularly checking her blood pressure at home.? She denies any headaches, chest discomfort, shortness of breath or dizziness. .. hyperlipidemia: Does have a history borderline high cholesterol mostly in the setting of hypo functioning thyroid. Will recheck lipid panel to ensure stable. Goal LDL to remain below 160 . Hypothyroidism:? Patient's TSH is stable, patient has been clinically euthyroid.? Will continue her current dose of levothyroxine Laboratory Tests 09/13/23 02/19/24 09:35 08:23 Cholesterol 230 H 268 H PFSH Medical History GERD (gastroesophageal reflux disease) Depression Cough HTN (hypertension) IBS (irritable bowel syndrome) Hypothyroid Abnormal CT of the abdomen Surgical History Hx of section History of esophagogastroduodenoscopy (EGD) Hx of colonoscopy History of cholecystectomy History of hernia repair Family History Father Stomach cancer Skin cancer Mother Stroke Diabetes Hypertension Past heart attack Sister Diabetes Daughter Colon cancer Social History Housing: House Are you a primary child day care teacher to a significant other at home: No Do you presently have visiting nurse or other home services: No Alcohol intake: never Patient Tobacco Use Status: Never used Tobacco Tobacco use type: Cigarette e-Cigarette/Vaping Use: Never Used Second Hand Smoke Exposure: No service: No Current occupational status: retired Current occupation: right hand dominant Cognitive needs: No Hearing needs: No Vision needs: Yes (Pt wears glasses.) Questionnaire Thrive Questionnaire Date Thrive assessed: 02/16/24 IMMANUEL-7 AMB Questionnaire IMMANUEL-7 Date IMMANUEL - 7 assessed: 02/16/24 Source: Developed by Drs. Julio Napier, Lauren Castillo, Dung Fonseca and colleagues, with an educational rhonda from [employer]. Review of Systems Const Denies headache(s) Eyes Denies loss of vision ENT Denies vertigo, Denies dizziness, Denies headache(s) and Denies sore throat Card Denies chest pain, Denies leg edema and Denies lightheadedness Resp Denies cough, Denies hemoptysis and Denies wheezing GI Denies abdominal pain, Denies melena, Denies constipation, Denies diarrhea and Denies vomiting Denies urinary frequency, Denies dysuria and Denies urinary urgency Musc Denies arthralgias, Denies joint swelling, Denies numbness and Denies tingling Neuro Denies Abnormal speech present, Denies behavioral changes, Denies vertigo, Denies dizziness, Denies headache(s), Denies loss of vision, Denies memory loss, Denies numbness and Denies tingling Psych Denies anxiety, Denies behavioral changes, Denies depression, Denies memory loss and Denies panic attacks Jalen/Lymph Denies easy bleeding and Denies easy bruising Aller/Immun Denies wheezing Physical exam (Primary Care) Vital Signs: Last Vital Signs Pulse 94 08/21/24 10:38 BP 140/70 H 08/21/24 10:38 Pulse Ox 96 08/21/24 10:38 Oxygen Delivery Method Room Air 08/21/24 10:38 BMI result Body Mass Index 34.1 Tobacco/Smoking Status: Tobacco use Status Tobacco use date assessed 02/04/23 08/21/24 10:39 Patient Tobacco Use Status Never used Tobacco 08/21/24 10:39 Tobacco use type Cigarette 08/21/24 10:39 e-Cigarette/Vaping Use Never Used 08/21/24 10:39 Thrive Assessment: Date of Thrive Assessment Date Thrive assessed 02/16/24 08/21/24 10:39 Const General: healthy appearing, no acute distress, alert and awake Nutritional Appearance: well nourished Orientation/consciousness: oriented to person, oriented to place and oriented to time HENMT Ears: TM's normal bilaterally General nose exam: Normal nasal mucous membranes and turbinates present Eyes Conjunctivae: conjunctivae normal Sclerae: sclerae normal Pupils: Equal, round and reactive pupils present Neck Neck: Yes no lymphadenopathy and Yes no JVD Thyroid: Thyroid normal Carotids: no bruits Resp Effort & Inspection: normal respiratory effort and not tachypneic Auscultation: no crackles, no rales, no rhonchi and no wheezes Cardio Rate: regular rate Rhythm: regular rhythm Heart sounds: no murmurs and normal S1 and S2 GI Palpation (GI): Soft to palpation, nontender, no hepatomegaly and no splenomegaly Auscultation: normal bowel sounds Skin General skin exam: no rashes or lesions noted and dry skin Neuro General: oriented to person, oriented to place and oriented to time Cranial nerves: Yes Equal, round and reactive pupils present Speech: No Abnormal speech present Gait exam (Neuro): Normal gait present Motor exam (neuro): no tremor noted Extrem Right upper extremity: full ROM Left upper extremity: full ROM Right lower extremity: full ROM; no edema Left lower extremity: full ROM; no edema Psych Mental Status: mental status grossly normal Speech and movement: Normal speech and movement present Affect: normal affect Attitude: cooperative Thought process: Normal thought process present Office Procedures Flu Questionnaire Does the patient have a severe egg allergy?: No Does the patient have severe life threatening allergies?: No Does the patient have a fever or illness today?: No Has the patient ever had Guillain-[place] Syndrome?: No Has the patient ever had any past reaction to a flu shot?: No Immunizations Fluarix Triv [id number] (PF) 45 mcg (15 mcg x 3)/0.5 mL IM syringe Performing Provider: Jorge Madison PA-C [facility] Administered by: TOMAS Aparicio on 08/21/24 10:48 Dose Route Admin Location Dispensed Lot Number Expiration Date ND Supervisor [employer] 0.5 mL IM Left Deltoid 0.5 mL [id number] 04/16/25 [id number] [email or web address] VIS Given Date VIS Provided VIS Publication Date 08/21/24 Single Vaccine 21 Eligibility Eligibility Date Funding Source Not [facility] Eligible 08/21/24 Private Coding Level of Care Code Est Pt Level 4 (89963) Diagnoses Pure hypercholesterolemia E78.00 Hyperlipidemia type: pure hypercholesterolemia Essential hypertension I10 Hypertension type: essential hypertension Hypothyroidism, unspecified type E03.9 Hypothyroidism type: unspecified Cervical radiculopathy M54.12 Assessment & Plan Assessment & Plan (1) HLD (hyperlipidemia): Code(s): E78.5 - Hyperlipidemia, unspecified Category: Medical Qualifiers: Hyperlipidemia type: pure hypercholesterolemia Qualified Code(s): E78.00 - Pure hypercholesterolemia, unspecified Plan: Patient's most recent lipid panel showing elevated total cholesterol. Advised to get fasting labs done in 2 evaluate. She continues on atorvastatin 10 mg without side effect. Goal total cholesterol to be below 200 and LDL to be below 130 (2) HTN (hypertension): Code(s): I10 - Essential (primary) hypertension Category: Medical Qualifiers: Hypertension type: essential hypertension Qualified Code(s): I10 - Essential (primary) hypertension Plan: Patient's blood pressure slightly elevated today in office. She is not regularly checking her blood pressure at home. She is asymptomatic without any headache, vision issues were chest discomfort. (3) Hypothyroidism: Code(s): E03.9 - Hypothyroidism, unspecified Category: Medical Qualifiers: Hypothyroidism type: unspecified Qualified Code(s): E03.9 - Hypothyroidism, unspecified Plan: Patient's most recent TSH stable. She continues on levothyroxine 125 mcg. Will continue to follow TSH to assure normal (4) Cervical radiculopathy: Code(s): M54.12 - Radiculopathy, cervical region Category: Medical Plan: Patient's right-sided neck paresthesias and burning most likely related to a sensory nerve issue originating from the cervical spine. Did offer her physical therapy though she declines at this time. Advised to use lidocaine cream or ointment over the area when symptoms flare. Orders: Orders Microalbumin, Random (w Creat) Today I10 - Essential (primary) hypertension Comprehensive [place]. Panel Fast Today I10 - Essential (primary) hypertension TSH reflex Free T4 Today E03.9 - Hypothyroidism, unspecified Influenza [id number] Immunization Today Z23 - Encounter for immunization Lipid Panel Today E78.5 - Hyperlipidemia, unspecified Complete Blood Count no Diff Today I10 - Essential (primary) hypertension Medications: Refilled omeprazole 20 mg PO DAILY 90 caps 2RF atorvastatin 10 mg PO DAILY 90 tabs 1RF E78.5 - Hyperlipidemia, unspecified
== END 2024-08-21 11:12 | disposition home or self-care (01) ==
LOC: HO.HMCH 10:33
PROVIDERS: PCP Physician Assistant; Visit Provider Physician Assistant
DX: E78.00 Pure hypercholesterolemia, unspecified (principal); I10 Essential (primary) hypertension; E03.9 Hypothyroidism, unspecified; M54.12 Radiculopathy, cervical region; Z23 Encounter for immunization

== ENCOUNTER → 2024-08-21 10:32 | Outpatient (BNVA) | payer OTHER, SELFPAY | PROVIDERS: PCP Physician Assistant; Visit Provider Physician Assistant | DX: Z23 Encounter for immunization (principal); E78.00 Pure hypercholesterolemia, unspecified; I10 Essential (primary) hypertension; E03.9 Hypothyroidism, unspecified; M54.12 Radiculopathy, cervical region | CPT/HCPCS: 90471; 90656; 99212 ==

== ENCOUNTER → 2024-11-22 14:00 | Outpatient (BNV) | payer OTHER, SELFPAY | PROVIDERS: PCP Physician Assistant; Visit Provider Internal Medicine | DX: Z12.31 Encounter for screening mammogram for malignant neoplasm of breast (principal) | CPT/HCPCS: 77063; 77067 ==

== ENCOUNTER 2025-02-01 12:47 | Outpatient (AMB) | payer OTHER, SELFPAY ==
--- NOTE | 2025-02-01 13:46 | AM.OFFWIN_ITS ---
Intake Vital Signs 02/01/25 13:47 Weight 168 lb BP 120/82 Blood Pressure Location Rt brachial Position Sitting Pulse 78 Pulse Source Pulse Oximeter Temp 98.0 F Temp Source Oral Pulse Oximetry (%) 98 Oxygen Delivery Method Room Air Intake Visit Reasons: EP Bilat ear pain Intake Note: Patient here for bilat ear pain that started about 2-3 days ago. Patient Tobacco Use Status: Never used Tobacco Allergies lisinopril Allergy (Unknown, Verified 02/01/25 13:46) shortness of breath coconut Allergy (Unknown, Uncoded 02/01/25 13:46) diarrhea, vomiting Do you need a note to return to daycare/school/sports/work: No HPI HPI Comments History of Present Illness Details History - The patient is a 69-year-old female pr esenting with 2 different complaints, bilateral ear pain and back pain. - She complains of ear pain initially in volving the right ear for three to four days, extending to the left ear since the previous night. - Oemk-zwp-sxyktki ear drops have been i neffective in resolving the symptoms, which include muffled hearing and a sensation of potential fever. - Previous ear infection occurrences are infrequent but exist without detailed frequency. - Concurrently, she experiences severe g eneralized back pain located around the mid to lower back but sparing the spine, with descriptions suggesting it may sometimes spread towards the leg area. - Prior relief attempts included heat an d electrical massage, which have proven ineffective so far. Physical Exam General: Cooperative, healthy appearing, comfortable and no acute distress Orientation/consciousness: Patient oriented x3 Limitations: No limitations Head: Normal to inspection Ears: Hearing impaired, external ears normal, right TM w/cerumen impaction, left TM normal Nose: Normal external nose present, Normal nares present and No nasal discharge present Face and sinus: Normal facial exam Eyes: Appearance normal, both eyes and all related structures Neck: Normal visual inspection Respiratory: Normal respiratory effort, able to speak in complete sentences, Actively coughing, no respiratory distress, not tachypneic, no tripod positioning and no use of accessory muscles Back/spine: no TTP of cervical, thoracic or lumbar spine, muscle spasm noted on thoracic left side, ttp low back bilat. Skin: No rashes or lesions noted Neuro: Patient oriented x3 Extremities: Normal to inspection and Yes no clubbing, cyanosis or edema [facility] Medical History GERD (gastroesophageal reflux disease) Depression Cough HTN (hypertension) IBS (irritable bowel syndrome) Hypothyroid Abnormal CT of the abdomen Surgical History Hx of section History of esophagogastroduodenoscopy (EGD) Hx of colonoscopy History of cholecystectomy History of hernia repair Family History Father Stomach cancer Skin cancer Mother Stroke Diabetes Hypertension Past heart attack Sister Diabetes Daughter Colon cancer Social History Housing: House Are you a primary director medicare sales to a significant other at home: No Do you presently have visiting nurse or other home services: No Alcohol intake: never Patient Tobacco Use Status: Never used Tobacco Tobacco use type: Cigarette e-Cigarette/Vaping Use: Never Used Second Hand Smoke Exposure: No service: No Current occupational status: retired Current occupation: right hand dominant Cognitive needs: No Hearing needs: No Vision needs: Yes (Pt wears glasses.) Review of Systems Const All systems reviewed & are unremarkable except as noted in HPI and below Physical Exam Vital Signs: Last Vital Signs Temp 98.0 F 02/01/25 13:47 Pulse 78 02/01/25 13:47 BP 120/82 02/01/25 13:47 Pulse Ox 98 02/01/25 13:47 Oxygen Delivery Method Room Air 02/01/25 13:47 Office Procedures Cerumen Removal From which ear canal was the cerumen removed: right Removal: irrigation Notes: patient tolerated procedure well, no complications and ear canal clear [id number] Irrigation/Lavage Assessment & Plan Assessment & Plan (1) Impacted cerumen of right ear: Code(s): H61.21 - Impacted cerumen, right ear Plan: The plan involves flushing the right ear to remove impacted cerumen and reassess for any underlying ear infections. Once ear canal was cleaned of cerumen, the right ear canal was notable for erythema and edema, pt still reporting pain. We will treat as otitis externa. Patient was informed and verbally consented to the use of an ambient scribe for clinic note documentation during this visit (2) Muscle spasm of back: Code(s): M62.830 - Muscle spasm of back Plan: Aleve/naproxen is recommended for the next three to four days to assist in reducing the lower back inflammation and pain, while muscle relaxants are provided to alleviate spasms. Instructions include monitoring for potential serious symptoms such as saddle parasthesias or incontinence and continuing the use of non-pharmacological measures such as heat application. The patient is advised regarding sedative side effects of the prescribed medication. A follow- up is already scheduled with her primary care physician, Tesfaye Madison PA-C to evaluate treatment efficacy and possible further interventions if needed. (3) Otitis externa of right ear: Code(s): H60.91 - Unspecified otitis externa, right ear Qualifiers: Otitis externa type: other infective Chronicity: acute Qualified Code(s): H60.391 - Other infective otitis externa, right ear Plan: Once ear canal was cleaned of cerumen, the right ear canal was notable for erythema and edema, pt still reporting pain. We will treat as otitis externa. Orders: Orders AMB Cerumen Removal Today H61.23 - Impacted cerumen, bilateral Medications: New vbvlmhmc-vznzlutdb-XI 3.5-10,000-1 mg/mL-unit/mL-% 4 drps otic (ear) right QID 10 mL 0RF 7 days cyclobenzaprine 5 mg PO Q8H PRN 20 tabs 0RF Muscle Spasm Discontinued cyclobenzaprine Discontinued Reason: Doctor's Order 5 mg PO Q12H 10 tabs 0RF Coding Level of Care Code Est Pt Level 4 (42004) Diagnoses Impacted cerumen of right ear H61.21 Muscle spasm of back M62.830 Other infective acute otitis externa of right ear H60.391 Otitis externa type: other infective Chronicity: acute CPT Codes Office Procedure - CPT: 79190-Ovu Irrigation/Lavage ([id number])
[2025-02-01 13:47] VITALS: BP 120/82; PULSE 78; TEMP 36.7; O2SAT 98
--- OUTSIDE RECORDS SUMMARY | 2025-02-01 15:31 | XMS_ITS | Clinical Summary ---
Author Organization [employer] Address [address] [place] [address] [address] [place] [address] Care Team Providers Care Order Desk Clerk Name Role Phone Unavailable Primary Care Provider Unavailabl e Immunizations Name Administration Dates Next Due Moderna Covid-19 Vaccine 6+ Bivalent 10/28/2022 Social History Tobacco Use Types Packs/Day Years Used Date Smoking Tobacco: Never Assessed Comments Unknown Sex and Gender Information Value Date Recorded Sex Assigned at Female 08/17/2022 10:14 AM EDT Legal Sex Female 10:14 AM EDT Gender Identity Female 08/17/2022 10:14 AM EDT Sexual Orientation Choose not to disclose 2021 10:14 AM EDT Plan of Treatment Health Maintenance Due Date Last Done Comments CT Colonography 1956 Colonoscopy 1956 Colorectal Cancer Screening 1956 Depression Screening 1956 FIT DNA/Cologuard 1956 FIT 1956 FOBT 1956 SDOH Screening 1956 Sigmoidoscopy 1956 Alcohol/Substance Use Screening 1968 Tobacco Screening 1968 Hepatitis C Screening 1974 Mammogram 1996 Pneumococcal Vaccine: 50+ Years (1 of 1 - PCV) 2006 Zoster Vaccines (1 of 2) 2006 COVID-19 Vaccine (4 - 2023-2 5 season) 2024 10/28/2022, 09/29/2021, 01/25/2021 Influenza Vaccine (#1) 2024 08/06/2021 DTaP/Tdap/Td Vaccines (3 - T d or Tdap) 03/10/2026 03/10/2016, 04/04/2013 RSV Patients and Patients Aged 60 years or older (1 - 1-dose 75+ series) 2031 HIB Vaccines Aged Out No longer eligi ble based on patient's age to complete this topic HPV Vaccines Aged Out No longer eligi ble based on patient's age to complete this topic Hepatitis A Vaccines Aged Out No long er eligible based on patient's age to complete this topic Hepatitis B Vaccines Aged Out No long er eligible based on patient's age to complete this topic IPV Vaccines Aged Out No longer eligi ble based on patient's age to complete this topic Meningococcal Vaccine Aged Out No jarrod ravindra eligible based on patient's age to complete this topic RSV under 20 months Aged Out No longe r eligible based on patient's age to complete this topic Rotavirus Vaccines Aged Out No longer eligible based on patient's age to complete this topic Insurance [facility]
== END 2025-02-01 14:35 | disposition home or self-care (01) ==
PROVIDERS: PCP Physician Assistant; Visit Provider Physician Assistant
DX: M62.830 Muscle spasm of back (principal); H60.391 Other infective otitis externa, right ear; H61.21 Impacted cerumen, right ear

== ENCOUNTER → 2025-02-01 12:47 | Outpatient (BNVA) | payer OTHER, SELFPAY | PROVIDERS: PCP Physician Assistant; Visit Provider Physician Assistant | DX: H61.21 Impacted cerumen, right ear (principal); H60.391 Other infective otitis externa, right ear; M62.830 Muscle spasm of back | CPT/HCPCS: 69209; 99212 ==

== ENCOUNTER 2025-02-19 10:24 | Outpatient (AMB) | payer OTHER, SELFPAY ==
--- NOTE | 2025-02-19 10:40 | MHC.PC.OV ---
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 Required: No Accompanied by: Self / Same As Patient Allergies lisinopril Allergy (Unknown, Verified 02/19/25 11:15) shortness of breath coconut Allergy (Unknown, Uncoded 02/19/25 11:15) diarrhea, vomiting Medication List - Last Reconciled 02/19/25 by Jorge Madison PA-C amlodipine 10 mg PO DAILY 90 days atorvastatin 10 mg PO DAILY [Blood pressure kit As directed] cetirizine 10 mg PO DAILY 90 days cyclobenzaprine 5 mg PO Q8H PRN levothyroxine 125 mcg PO DAILY [id number]-WO 3.5-10,000-1 mg/mL-unit/mL-% 4 drps otic (ear) right QID 7 days omeprazole 20 mg PO DAILY Tobacco use date assessed: 02/19/25 Fall risk assessment: No Falls in past year Last assessed Fall Risk: 02/19/25 Dental Screening Dental Screen Date: 02/19/25 Did you have a dental visit in the last 12 months?: Yes Did you have a dental problem in the last 6 months where you did not have access to dental care?: No Was dental information given to patient?: Patient has dentist HPI annual exam HPI Details Patient is a 69-year-old female here today for routine annual physical.? Patient has a past medical history significant for hypertension, hypothyroidism. Concerns--> patient reports some right thigh pain that radiates down the front of her leg into her foot. She can not recall any trauma to her right lower extremity. She does use Tylenol ukav-bje-[id number] as needed. --> she also reports that her left ring finger often gets caught in a flexed position in his very painful to dislodged. . Hypertension:? Patient's blood pressure slightly elevated today, repeat blood pressure testing much improved. She does have some right ear discomfort at this time. She reports not regularly checking her blood pressure at home.? She denies any headaches, chest discomfort, shortness of breath or dizziness. .. hyperlipidemia: Does have a history borderline high cholesterol mostly in the setting of hypo functioning thyroid. Will recheck lipid panel to ensure stable. Goal LDL to remain below 160 . Hypothyroidism:? Patient's TSH is stable, patient has been clinically euthyroid.? Will continue her current dose of levothyroxine Colon cancer screening: Colonoscopy done in 2022, repeat 5 years due to family history of colon cancer. Vaccines: Up-to-date with COVID vaccine, tetanus vaccine, utd with pneumonia vaccine and considering shingles vaccine Mammogram: Done in November of 2024 [facility] Medical History GERD (gastroesophageal reflux disease) Depression Cough HTN (hypertension) IBS (irritable bowel syndrome) Hypothyroid Abnormal CT of the abdomen Surgical History Hx of section History of esophagogastroduodenoscopy (EGD) Hx of colonoscopy History of cholecystectomy History of hernia repair Family History Father Stomach cancer Skin cancer Mother Stroke Diabetes Hypertension Past heart attack Sister Diabetes Daughter Colon cancer Social History Housing: House Are you a primary critical care unit manager to a significant other at home: No Do you presently have visiting nurse or other home services: No Alcohol intake: never Patient Tobacco Use Status: Never used Tobacco Tobacco use type: Cigarette e-Cigarette/Vaping Use: Never Used Second Hand Smoke Exposure: No service: No Current occupational status: retired Current occupation: right hand dominant Cognitive needs: No Hearing needs: No Vision needs: Yes (Pt wears glasses.) Questionnaire PHQ-9 Over the last 2 weeks, how often have you been bothered by any of the following problems? 1. Little interest or pleasure in doing things: more than half the days 2. Feeling down, depressed, or hopeless: nearly every day 3. Trouble falling or staying asleep, or sleeping too much: nearly every day 4. Feeling tired or having little energy: nearly every day 5. Poor appetite or overeating: nearly every day 6. Feeling bad about yourself - or that you are a failure or have let yourself or your family down: more than half the days 7. Trouble concentrating on things, such as reading the newspaper or watching television: not at all 8. Moving or speaking so slowly that other people could have noticed. Or the opposite - being so fidgety or restless that you have been moving around a lot more than usual: nearly every day 9. Thoughts that you would be better off or of hurting yourself in some way: several days Total score: 20 Depression Screening Interpretation: Positive Depression Screening Follow-up: Existing condition and Declines treatment Depression Screening Done: Yes 88824 - PHQ-9 Billing: Yes Source: Developed by Drs. Julio Napier, Lauren Castillo, Dung Fonseca and colleagues, with an educational rhonda from [employer] Thrive Questionnaire Date Thrive assessed: 02/19/25 I am a: Patient What is your living situation today?: I have a steady place to live Within the past 12 months, did the food you bought not last and you didn't have the money to get more?: Never true Within the past 12 months, did you worry whether your food would run out before you got money to buy more?: Never true Do you have trouble paying for medicines?: No Do you have trouble getting transportation to medical appointments?: No Do you have trouble paying your heating and electricity bill?: No Do you have trouble taking care of your child, family member or friend?: No Do you have trouble with day-to-day activities such as bathing, preparing meals, shopping, managing finances, etc.?: No Are you currently unemployed and looking for a job?: No Are you interested in more education?: No Please select the resources that you would like help with: None Currently or been in a relationship where the following occur: No concerns reported THRIVE Score: 0 AUDIT C Alcohol Use Questionnaire (AUDIT-C) 1. How often do you have a drink containing alcohol?: Never 3. How often do you have six or more drinks on one occasion?: Never Total Score: 0 IMMANUEL-7 AMB Questionnaire IMMANUEL-7 Date IMMANUEL - 7 assessed: 02/19/25 Feeling nervous, anxious, or on edge: 0 = Not at all Not being able to stop or control worryin = Not at all Worrying too much about different things: 0 = Not at all Trouble relaxin = Not at all Being so restless that it is hard to sit still: 0 = Not at all Becoming easily annoyed or irritable: 0 = Not at all Feeling afraid as if something awful might happen: 0 = Not at all Total IMMANUEL-7 score (0-4 normal; 5-9 mild; 10-14 moderate; 15-21 severe): 0 Source: Developed by Drs. Julio Napier, Lauren Castillo, Dung Fonseca and colleagues, with an educational rhonda from [employer] IMMANUEL-7 Assessment Billing IMMANUEL-7 Assessment Tool: IMMANUEL-7 Assessment 04814 Review of Systems Const Denies excessive sweating, Denies fatigue and Denies headache(s) Eyes Denies loss of vision ENT Denies vertigo, Denies dizziness, Denies headache(s) and Denies sore throat Card Denies chest pain, Denies leg edema and Denies lightheadedness Resp Denies cough, Denies hemoptysis and Denies wheezing GI Denies abdominal pain, Denies melena, Denies constipation, Denies diarrhea and Denies vomiting Denies urinary frequency, Denies dysuria and Denies urinary urgency Musc Denies arthralgias, Denies joint swelling, Denies numbness and Denies tingling Skin/Breast Denies rash and Denies skin ulcer Neuro Denies Abnormal speech present, Denies behavioral changes, Denies vertigo, Denies dizziness, Denies headache(s), Denies loss of vision, Denies memory loss, Denies numbness and Denies tingling Psych Denies anxiety, Denies behavioral changes, Denies depression, Denies memory loss and Denies panic attacks Endo Denies excessive sweating, Denies fatigue, Denies flushing, Denies polydipsia and Denies polyuria Jalen/Lymph Denies easy bleeding and Denies easy bruising Aller/Immun Denies wheezing Physical exam (Primary Care) Vital Signs: Last Vital Signs Temp 97.3 F 02/19/25 10:56 Pulse 88 02/19/25 10:56 BP 148/80 H 02/19/25 10:56 Pulse Ox 97 02/19/25 10:56 Oxygen Delivery Method Room Air 02/19/25 10:56 Care Plan Goal for BP management: Continue current dose of amlodipine, will monitor more closely her blood pressure at home consider adding lisinopril or hydrochlorothiazide. Next steps: Monitor blood pressure at home with goal blood pressure be below 140/90 BMI result Body Mass Index 35.0 BMI Assessment/Plan discussion: High BMI High, discussed plan: lifestyle, weight reduction, dietary and physical activity Tobacco/Smoking Status: Tobacco use Status Tobacco use date assessed 02/19/25 02/19/25 11:04 Patient Tobacco Use Status Never used Tobacco 02/19/25 10:40 Tobacco use type Cigarette 02/19/25 10:40 e-Cigarette/Vaping Use Never Used 02/19/25 10:40 PHQ-9: PHQ-9 Score PHQ-9: Total score 20 02/19/25 11:16 Depression Screening Interpretation: Positive Depression Screening Follow-up: Existing condition and Declines treatment Thrive Assessment: Date of Thrive Assessment Date Thrive assessed 02/19/25 02/19/25 10:57 Currently or been in a relationship where the following occur: No concerns reported Const General: healthy appearing, no acute distress, alert and awake Nutritional Appearance: well nourished Orientation/consciousness: oriented to person, oriented to place and oriented to time HENMT Head: Yes normocephalic Ears: TM's normal bilaterally General nose exam: Normal nasal mucous membranes and turbinates present Face and sinus: No sinus tenderness Mouth: Normal oral and palatal mucosa present and tongue normal Teeth and gingiva: dentition normal and gingiva normal Throat: Yes posterior oropharynx normal, Yes tonsils normal and Yes uvula midline Eyes Conjunctivae: conjunctivae normal Sclerae: sclerae normal Pupils: Equal, round and reactive pupils present EOM: EOMs intact bilaterally Direct Ophthalmoscopy: No no photophobia Neck Neck: Yes no lymphadenopathy and Yes no JVD Thyroid: Thyroid normal Carotids: no bruits Chest Chest palpation & inspection: no tenderness Resp Effort & Inspection: normal respiratory effort and not tachypneic Auscultation: no crackles, no rales, no rhonchi and no wheezes Cardio Jugular venous distension: no JVD Rate: regular rate Rhythm: regular rhythm Heart sounds: no murmurs and normal S1 and S2 Bruits: no carotid bruits Peripheral pulses: Peripheral pulses 2+ throughout GI Inspection: Yes normal to inspection, No abdominal wall ecchymosis and No visible herniation Palpation (GI): Soft to palpation, nontender, no hepatomegaly and no splenomegaly Auscultation: normal bowel sounds General: Yes no CVA tenderness Back/Spine/Pelvis Back: no CVA tenderness and No back tenderness Cervical Spine: cervical ROM normal Thoracic/Lumbar Spine: thoracic and lumbar spine normal to inspection, straight leg raise negative bilaterally, No thoraco-lumbar ROM limited and No lumbar spinal tenderness Skin General skin exam: no rashes or lesions noted and dry skin Lesions: no lesions Rashes: no rashes Wounds: no wounds Neuro General: oriented to person, oriented to place and oriented to time Cranial nerves: Yes Equal, round and reactive pupils present Cognition (Neuro): normal cognition Speech: No Abnormal speech present Gait exam (Neuro): Normal gait present Motor exam (neuro): no tremor noted Extrem Right upper extremity: full ROM Left upper extremity: full ROM Right lower extremity: full ROM; no edema Left lower extremity: full ROM; no edema Psych Appearance: grossly normal Mental Status: mental status grossly normal Speech and movement: Normal speech and movement present Affect: normal affect Attitude: cooperative Thought process: Normal thought process present Coding Level of Care Code Est Pt Prev Care >65y(43452) Diagnoses Annual physical exam Z00.00 Trigger finger, left ring finger M65.342 Pure hypercholesterolemia E78.00 Hyperlipidemia type: pure hypercholesterolemia Essential hypertension I10 Hypertension type: essential hypertension Hypothyroidism, unspecified type E03.9 Hypothyroidism type: unspecified Class 2 obesity E66.812 Additional Codes IMMANUEL-7 Assessment Billing - IMMANUEL-7 Assessment Tool: IMMANUEL-7 Assessment 60230 ([id number]) PHQ-9 - 56216 - PHQ-9 Billing: Yes ([id number]) Assessment & Plan Assessment & Plan (1) Annual physical exam: Code(s): Z00.00 - Encounter for general adult medical examination without abnormal findings Category: Medical Plan: As per HPI (2) Trigger finger, left ring finger: Code(s): M65.342 - Trigger finger, left ring finger Category: Medical Plan: Patient showing signs and symptoms of trigger finger of the left ring finger. We did discuss possibly doing occupational therapy though patient declines Will refer to orthopedics for evaluation and possible cortisone injection (3) HLD (hyperlipidemia): Code(s): E78.5 - Hyperlipidemia, unspecified Category: Medical Qualifiers: Hyperlipidemia type: pure hypercholesterolemia Qualified Code(s): E78.00 - Pure hypercholesterolemia, unspecified Plan: Patient's most recent fasting lipid panel showing elevation in her total cholesterol and LDL. She continues on atorvastatin 10 mg. She is willing to repeat fasting lipids, Goal LDL is to be below 130 (4) HTN (hypertension): Code(s): I10 - Essential (primary) hypertension Category: Medical Qualifiers: Hypertension type: essential hypertension Qualified Code(s): I10 - Essential (primary) hypertension Plan: Patient's blood pressure elevated today in office. She is not consistent with monitoring her blood pressure at home. She will work on lifestyle and dietary modifications. Will consider starting additional blood pressure medication -> lisinopril (5) Hypothyroidism: Code(s): E03.9 - Hypothyroidism, unspecified Category: Medical Qualifiers: Hypothyroidism type: unspecified Qualified Code(s): E03.9 - Hypothyroidism, unspecified Plan: Patient continues on levothyroxine 125 mcg. Most recent TSH has been stable. Will recheck TSH to assure normal. (6) Class 2 obesity: Code(s): E66.812 - Obesity, class 2 Category: Medical Plan: Patient does understand her BMI is over 35 and will work on being more physically active and adapting to better eating habits to reduce her weight Orders: Referrals Orthopedics Referral M65.342 - Trigger finger, left ring finger Patient Instructions: Goal: Blood pressure to be below 140/90 Barrier: Adherence to physical activity and healthy eating habits
[2025-02-19 10:56] VITALS: BP 148/80; PULSE 88; TEMP 36.3; O2SAT 97; BMI 35.0
--- OUTSIDE RECORDS SUMMARY | 2025-02-19 11:45 | XMS_ITS | Clinical Summary ---
Author Organization [employer] Address [address] [place] [address] [address] [place] [address] Care Team Providers Care Elevators Inspector Name Role Phone Unavailable Primary Care Provider [...] patient's age to complete this topic Insurance [facility]
== END 2025-02-19 11:40 | disposition home or self-care (01) ==
LOC: HO.HMCH 10:25
PROVIDERS: PCP Physician Assistant; Visit Provider Physician Assistant
DX: Z00.00 Encounter for general adult medical examination without abnormal findings (principal); M65.342 Trigger finger, left ring finger; E66.812 Obesity, class 2; Z68.35 Body mass index [BMI] 35.0-35.9, adult; E78.00 Pure hypercholesterolemia, unspecified; I10 Essential (primary) hypertension; E03.9 Hypothyroidism, unspecified

== ENCOUNTER → 2025-02-19 10:24 | Outpatient (BNVA) | payer OTHER, SELFPAY | PROVIDERS: PCP Physician Assistant; Visit Provider Physician Assistant | DX: Z00.00 Encounter for general adult medical examination without abnormal findings (principal); M65.342 Trigger finger, left ring finger; E78.00 Pure hypercholesterolemia, unspecified; I10 Essential (primary) hypertension; E03.9 Hypothyroidism, unspecified; E66.812 Obesity, class 2; Z68.35 Body mass index [BMI] 35.0-35.9, adult | CPT/HCPCS: 96127; 99397 ==

== ENCOUNTER 2025-04-04 14:52 | Outpatient (AMB) | payer OTHER, SELFPAY ==
--- NOTE | 2025-04-04 15:07 | MHC.OFFVIS ---
Vital Signs 04/04/25 15:11 04/04/25 15:11 Height 4 ft 10 in 4 ft 10 in Weight 167 lb BMI 34.9 Intake Visit Reasons: New prob-Lt ring finger trigger finger Intake Note: Leny is a 69 year old female who presents today for a new problem visit for evaluation of possible left ring finger, trigger finger. Patient reports her left ring finger has been catching and locking for roughly three months. Denies trauma or injury to hands. She expresses she has to forcefully pull her finger up to straighten and this exacerbates her symptoms. Lifting has become difficulty with the left hand due to the pain in her ring finger. She has complaints of bilateral hand numbness and tingling. She thinks she sleeps on her hands and this is why she has these symptoms. At night she wakes up and has to shake off her hands or open and closes her hands for some relief. Allergies lisinopril Allergy (Unknown, Verified 04/04/25 15:16) shortness of breath coconut Allergy (Unknown, Uncoded 04/04/25 15:16) diarrhea, vomiting HPI HPI New prob-Lt ring finger trigger finger: Details: Leny is a 69 year old female who presents today for a new problem visit for evaluation of possible left ring finger, trigger finger. Patient reports her left ring finger has been catching and locking for roughly three months. Denies trauma or injury to hands. She expresses she has to forcefully pull her finger up to straighten and this exacerbates her symptoms. Lifting has become difficulty with the left hand due to the pain in her ring finger. She has complaints of bilateral hand numbness and tingling. She states that she feels like ?I slept on my hands wrong, but I do not sleep on my hands at all?. At night she wakes up and has to shake off her hands or open and closes her hands for some relief. [facility], LAT[facility] Medical History GERD (gastroesophageal reflux disease) Depression Cough HTN (hypertension) IBS (irritable bowel syndrome) Hypothyroid Abnormal CT of the abdomen Surgical History Hx of section History of esophagogastroduodenoscopy (EGD) Hx of colonoscopy History of cholecystectomy History of hernia repair Family History Father Stomach cancer Skin cancer Mother Stroke Diabetes Hypertension Past heart attack Sister Diabetes Daughter Colon cancer Social History Housing: House Are you a primary restorative care technician to a significant other at home: No Do you presently have visiting nurse or other home services: No Alcohol intake: never Patient Tobacco Use Status: Never used Tobacco Tobacco use type: Cigarette e-Cigarette/Vaping Use: Never Used Second Hand Smoke Exposure: No service: No Current occupational status: retired Current occupation: right hand dominant Cognitive needs: No Hearing needs: No Vision needs: Yes (Pt wears glasses.) Review of Systems Const All systems reviewed & are unremarkable except as noted in HPI and below Physical Exam Vital Signs: BMI result Body Mass Index 34.9 Extrem Other: Neuro: Normal sensation of the tips of all digits of bilateral hands in the office today No thenar or intrinsic wasting. Good APB muscle firing and good finger cross. Vascular: Capillary refill brisk. ROM: There is visible and palpable locking and catching of the left ring finger in a flexed position Patient can make a fist and extend all other digits. Skin: No lacerations or abrasions noted. General: No ecchymosis. No erythema or evidence of infection. Assessment & Plan Assessment & Plan (1) Trigger finger, left ring finger: Code(s): M65.342 - Trigger finger, left ring finger Category: Medical (2) Numbness and tingling in both hands: Code(s): R20.0 - Anesthesia of skin; R20.2 - Paresthesia of skin Category: Medical Plan 1. Left ring finger trigger finger 2. Numbness and tingling of both hands Patient is educated about these conditions Patient is educated about the treatment options available At this time, patient is referred for EMG and nerve conduction study to assess the health of the nerves of bilateral upper extremities At this time, patient is educated if feel we should hold off on getting signed up for trigger release until after we have the results of EMG and nerve conduction study, as if the patient is positive for carpal tunnel syndrome we can perform both of the procedures at the same time Patient understands this is amenable to this plan Follow-up after EMG and nerve conduction study, sooner with any acute concerns Orders: Orders NE electromyogram (EMG) 04/04/25 R20.0 - Anesthesia of skin, R20.2 - Paresthesia of skin NE nerve conduction velocity 04/04/25 R20.0 - Anesthesia of skin, R20.2 - Paresthesia of skin Coding Level of Care Code New Pt Level 3 (02352) Diagnoses Trigger finger, left ring finger M65.342 Numbness and tingling in both hands R20.0; R20.2
[2025-04-04 15:11] VITALS: BMI 34.9
--- OUTSIDE RECORDS SUMMARY | 2025-04-04 17:09 | XMS_ITS | Clinical Summary ---
Author Organization [employer] Address [address] [place] [address] [address] [place] [address] Care Team Providers Care Printed Circuit Board Designer Name Role Phone Unavailable Primary Care Provider Unavailabl e Immunizations Immunization Administration Dates Next Due Moderna Covid-19 Vaccine [...] season) 2024 10/28/2022, 09/29/2021, 01/25/2021 Influenza Vaccine (Season Ended) 2025 08/06/2021 DTaP/Tdap/Td Vaccines (3 - T d [...] patient's age to complete this topic Meningococcal B Vaccine Aged Out No l onger eligible based on patient's age to complete this topic Meningococcal Vaccine Aged Out No jarrod ravindra eligible based on patient's age to complete this topic RSV under 20 months Aged Out No longe r eligible based on patient's age to complete this topic Rotavirus Vaccines Aged Out No longer eligible based on patient's age to complete this topic Insurance [facility]
== END 2025-04-04 15:52 | disposition home or self-care (01) ==
LOC: HO.HOS 14:52
PROVIDERS: PCP Physician Assistant
DX: M65.342 Trigger finger, left ring finger (principal); R20.0 Anesthesia of skin; R20.2 Paresthesia of skin
CPT/HCPCS: 99213

== ENCOUNTER → 2025-04-04 14:52 | Outpatient (BNVA) | payer OTHER, SELFPAY | PROVIDERS: PCP Physician Assistant | DX: M65.342 Trigger finger, left ring finger (principal); R20.0 Anesthesia of skin; R20.2 Paresthesia of skin | CPT/HCPCS: 99212 ==

== ENCOUNTER 2025-05-18 14:05 | Outpatient (REF) | payer OTHER, SELFPAY ==
--- NOTE | 2025-05-18 14:07 | EMG_ITS ---
Chief complaint: Hand numbness, right worse than left, especially in the morning Reason for referral: Evaluate for Carpal Tunnel Syndrome Referred by: Evan EDGE Procedure done: Bilateral upper extremities NCS/EMG Precautions and/or limitations: None The limb temperature was monitored continuously and remained between 32-36 degrees C during the performance of the NCS. Nerve Conduction Studies Anti Sensory Summary Table ?Stim Site NR Onset (ms) Norm Onset (ms) Peak (ms) Norm Peak (ms) O-P Amp (?V) Norm O-P Amp Site1 Site2 Delta-0 (ms) Dist (cm) Saul (m/s) Norm Saul (m/s) Left Median Anti Sensory (2nd Digit) Wrist ? 3.3 4.0 <3.6 22.3 >10 Wrist 2nd Digit 3.3 14.0 42 Right Median Anti Sensory (2nd Digit) Wrist ? 3.7 4.6 <3.6 11.5 >10 Wrist 2nd Digit 3.7 14.0 38 Right Radial Anti Sensory (Thumb) Forearm ? 1.4 1.8 <3.1 24.8 Forearm Thumb 1.4 0.0 Left Ulnar Anti Sensory (5th Digit) Wrist ? 2.2 2.8 <3.7 26.0 >15.0 Wrist 5th Digit 2.2 14.0 64 Right Ulnar Anti Sensory (5th Digit) Wrist ? 2.3 2.8 <3.7 14.4 >15.0 Wrist 5th Digit 2.3 14.0 61 Motor Summary Table ?Stim Site NR Onset (ms) Norm Onset (ms) O-P Amp (mV) Norm O-P Amp iAmp (mV) Amp (1st) (%) Site1 Site2 Delta-0 (ms) Dist (cm) Saul (m/s) Norm Saul (m/s) Left Median Motor (Abd Poll Brev) Wrist ? 4.4 <3.9 3.5 >4.5 4.4 100.0 Elbow Wrist 3.1 16.0 52 >45 Elbow ? 7.5 3.3 4.3 94.3 Right Median Motor (Abd Poll Brev) Wrist ? 4.1 <3.9 5.0 >4.5 5.7 100.0 Elbow Wrist 3.6 18.0 50 >45 Elbow ? 7.7 4.3 5.2 86.0 Left Ulnar Motor (Abd Dig Minimi) Wrist ? 2.6 <3.0 8.2 >5 9.7 100.0 B Elbow Wrist 2.3 14.0 61 >45 B Elbow ? 4.9 7.9 9.5 96.3 A Elbow B Elbow 1.5 10.0 67 >45 A Elbow ? 6.4 7.1 8.6 86.6 Right Ulnar Motor (Abd Dig Minimi) Wrist ? 2.3 <3.0 9.2 >5 10.8 100.0 B Elbow Wrist 2.5 16.0 64 >45 B Elbow ? 4.8 9.2 10.9 100.0 A Elbow B Elbow 1.5 10.0 67 >45 A Elbow ? 6.3 7.8 9.1 84.8 EMG ?Side Muscle Nerve Root Ins Act Fibs Psw Amp Dur Poly Recrt Int Pat Comment Right 1stDorInt Ulnar C8-T1 Nml Nml Nml Nml Nml 0 Nml Complete Right FlexCarRad Median C6-7 Nml Nml Nml Nml Nml 0 Nml Complete Right FlexCarpiUln Ulnar C8,T1 Nml Nml Nml Nml Nml 0 Nml Complete Right Biceps Musculocut C5-6 Nml Nml Nml Nml Nml 0 Nml Complete Right Triceps Radial C6-7-8 Nml Nml Nml Nml Nml 0 Nml Complete Right Deltoid Axillary C5-6 Nml Nml Nml Nml Nml 0 Nml Complete Left 1stDorInt Ulnar C8-T1 Nml Nml Nml Nml Nml 0 Nml Complete Left FlexCarRad Median C6-7 Nml Nml Nml Nml Nml 0 Nml Complete Left FlexCarpiUln Ulnar C8,T1 Nml Nml Nml Nml Nml 0 Nml Complete Left Biceps Musculocut C5-6 Nml Nml Nml Nml Nml 0 Nml Complete Left Triceps Radial C6-7-8 Nml Nml Nml Nml Nml 0 Nml Complete Left Deltoid Axillary C5-6 Nml Nml Nml Nml Nml 0 Nml Complete FINDINGS: Right median motor nerve showed prolonged distal latency, normal amplitude and normal conduction velocity. Left median motor nerve showed prolonged distal latency, small amplitude and normal conduction velocity. Bilateral median sensory nerves showed prolonged peak latency. All other nerves tested were within normal. Concentric needle EMG was performed in selected muscles of the bilateral upper extremities. Study did not reveal signs of electric abnormalities as shown in the table above. IMPRESSION: 1. This is an abnormal study. 2. There is electrodiagnostic evidence for bilateral moderate-severe median neuropathy at the wrist, consistent with carpal tunnel syndrome. 3. There is no electrodiagnostic evidence for ulnar neuropathy, brachial plexopathy, or cervical radiculopathy. Thank you for your kind referral. Holly Canales MD, FANY Board Certified, [place] Board of Physical Medicine and Rehabilitation (ABPMR) Board Certified, [place] Board of Electrodiagnostic Medicine (ABEM) CODIN [phone] x 2 MTDD
--- OUTSIDE RECORDS SUMMARY | 2025-05-18 14:07 | XMS_ITS | Clinical Summary ---
Author Organization [employer] Address [address] [place] [address] [address] [place] [address] Care Team Providers Care Photo Optics Technician Name Role Phone Unavailable Primary Care Provider [...] 2024 10/28/2022, 09/29/2021, 01/25/2021 Influenza Vaccine (#1) 2025 08/06/2021 DTaP/Tdap/Td Vaccines (3 - T [...] patient's age to complete this topic Insurance [facility]
--- OUTSIDE RECORDS SUMMARY | 2025-05-18 14:08 | XMS_ITS | Patient Health Record ---
Author Organization [facility] [employer] Address [address] [place] [id number] Care Team Providers Care Garbage Worker Name Role Phone Geronimo Huynh Jr Reason For Referral No Information Plan Of Treatment No Information
== END 2025-05-18 14:06 | disposition home or self-care (01) ==
LOC: HO.NEURO 14:05
PROVIDERS: PCP Physician Assistant; Visit Provider Midwife
DX: R20.0 Anesthesia of skin (principal); R20.2 Paresthesia of skin; R94.131 Abnormal electromyogram [EMG]
CPT/HCPCS: 95886; 95911

== ENCOUNTER → 2025-05-18 14:07 | Outpatient (BNV) | payer OTHER, SELFPAY | PROVIDERS: PCP Physician Assistant; Visit Provider Physical Medicine & Rehabilitation | DX: G56.03 Carpal tunnel syndrome, bilateral upper limbs (principal) | CPT/HCPCS: 95886; 95911 ==

== ENCOUNTER 2025-06-07 09:41 | Outpatient (AMB) | payer OTHER, SELFPAY ==
[2025-06-07 09:43] VITALS: BMI 34.9
--- NOTE | 2025-06-07 09:43 | A.OFFVIS_ITS ---
Vital Signs 06/07/25 09:43 Height 4 ft 10 in Weight 167 lb BMI 34.9 Intake Visit Reasons: OV-Julián Hand NCS/EMG-Review Intake Note: Leny is a 69 year old right hand dominant female who presents today for an EMG review. She was last seen on 04/04/25 for evaluation of left ring trigger finger. At that time, she complained of bilateral hand numbness and tingling, worse at night. Today she reports her right hand is worse, primarily on the 2nd, 3th, 4th & 5th digits. She feels a shocking sensation on the volar aspect of the forearm, from the elbow to the wrist. She has been using a wrist brace with some relief, primarily using it lift heavy things. Denies previous injuries or surgeries to the right hand. Patient shares she was supposed to have right shoulder surgery, possibly an arthroscopy, but it did not happen due to illness. Allergies lisinopril Allergy (Unknown, Verified 06/07/25 09:45) shortness of breath coconut Allergy (Unknown, Uncoded 06/07/25 09:45) diarrhea, vomiting HPI HPI OV-Julián Hand NCS/EMG-Review: Details: Leny is a 69 year old right hand dominant female who presents today for an EMG review. She was last seen on 04/04/25 for evaluation of left ring trigger finger. At that time, she complained of bilateral hand numbness and tingling, worse at night. Today she reports her right hand is worse, primarily on the 2nd, 3th, 4th & 5th digits. She feels a shocking sensation on the volar aspect of the forearm, from the elbow to the wrist. She has been using a wrist brace with some relief, primarily using it lift heavy things. Denies previous injuries or surgeries to the right hand. Patient shares she was supposed to have right shoulder surgery, possibly an arthroscopy, but it did not happen due to illness. [facility] Medical History GERD (gastroesophageal reflux disease) Depression Cough HTN (hypertension) IBS (irritable bowel syndrome) Hypothyroid Abnormal CT of the abdomen Surgical History Hx of section History of esophagogastroduodenoscopy (EGD) Hx of colonoscopy History of cholecystectomy History of hernia repair Family History Father Stomach cancer Skin cancer Mother Stroke Diabetes Hypertension Past heart attack Sister Diabetes Daughter Colon cancer Social History Housing: House Are you a primary day care center director to a significant other at home: No Do you presently have visiting nurse or other home services: No Alcohol intake: never Patient Tobacco Use Status: Never used Tobacco Tobacco use type: Cigarette e-Cigarette/Vaping Use: Never Used Second Hand Smoke Exposure: No service: No Current occupational status: retired Current occupation: right hand dominant Cognitive needs: No Hearing needs: No Vision needs: Yes (Pt wears glasses.) Review of Systems Const All systems reviewed & are unremarkable except as noted in HPI and below Physical Exam Vital Signs: BMI result Body Mass Index 34.9 Extrem Other: Neuro: Normal sensation of the tips of all digits of bilateral hands in the office today No thenar or intrinsic wasting. Good APB muscle firing and good finger cross. Vascular: Capillary refill brisk. ROM: Patient can make a fist and extend all digits. Skin: No lacerations or abrasions noted. General: No ecchymosis. No erythema or evidence of infection. Assessment & Plan Assessment & Plan (1) Bilateral carpal tunnel syndrome: Code(s): G56.03 - Carpal tunnel syndrome, bilateral upper limbs Category: Medical Plan 1. Bilateral carpal tunnel syndrome I educated the patient about the condition. I discussed both operative and nonoperative treatment options. The patient would like to proceed with surgery. The risks and benefits of operative treatment were discussed with the patient and the patient wishes to proceed with surgery. These risks include, but are not limited to, risk of damage to blood vessels, nerves, tendons, infection, recurrence, incomplete relief of preoperative symptoms, persistent pain, possible need for further surgery, and the risks associated with regional blocks and/or anesthesia. Plan is to take the patient to the operating room at some point in the next few weeks for the following procedures: 1. Right carpal tunnel release under local All of the preoperative paperwork including the consent was discussed today. All of the patient's questions were answered in the clinic today. The patient understands that they will be in contact with our neurosurgical nurse practitioner to discuss scheduling their procedure. Patient denies diabetes, blood thinners, asthma, heart issues, lung issues, kidney issues, or current smoking. Patient states that she would be interested in pursuing operative intervention of the left side after intervention on the right, as right side bothers her more. Coding Level of Care Code Est Pt Level 4 (64660) Diagnoses Bilateral carpal tunnel syndrome G56.03
--- OUTSIDE RECORDS SUMMARY | 2025-06-07 11:00 | XMS_ITS | Clinical Summary ---
Author Organization [email or web address] Address [address] [place] [address] [address] [place] [address] Care Team Providers Care Glue Wheel Operator Name Role Phone Unavailable Primary Care Provider [...] patient's age to complete this topic Insurance [facility]
--- OUTSIDE RECORDS SUMMARY | 2025-06-07 11:00 | XMS_ITS | Patient Health Record ---
Author Organization [facility] Address [address] [place] [id number] Care Team Providers Care Irrigationist Name Role Phone Geronimo Huynh Jr Reason For Referral No Information Plan Of Treatment No Information
== END 2025-06-07 10:33 | disposition home or self-care (01) ==
LOC: HO.HOS 09:41
PROVIDERS: PCP Physician Assistant
DX: G56.03 Carpal tunnel syndrome, bilateral upper limbs (principal)
CPT/HCPCS: 99214

== ENCOUNTER → 2025-06-07 09:41 | Outpatient (BNVA) | payer OTHER, SELFPAY | PROVIDERS: PCP Physician Assistant | DX: Z71.2 Person consulting for explanation of examination or test findings (principal); G56.03 Carpal tunnel syndrome, bilateral upper limbs | CPT/HCPCS: 99212 ==

== ENCOUNTER 2025-07-12 11:28 | Day surgery (SDC) | payer OTHER, SELFPAY ==
[2025-07-12 12:37] VITALS: BP 126/71; PULSE 78; RESP 16; TEMP 35.8; O2SAT 97; BMI 32.3
--- NOTE | 2025-07-12 13:48 | P.OP_ITS ---
Operative Note Operative Note Date of Service: 07/12/25 Narrative: Preop diagnosis: 1. Right Carpal tunnel syndrome Postop diagnosis: same Procedure: 1. Right Carpal tunnel release Surgeon: Gertrude Godoy MD Project/Production Manager Imaging: Evan EDGE Anesthesia: local block using 1% lidocaine with epinephrine Findings: Thickened transverse carpal ligament. EBL: Less than 5 mL Specimens: None Complications: None Disposition: Brought to recovery room in stable condition Plan: Follow-up for 10-14 days for wound check and suture removal Indications: The patient is 69 years old, with right carpal tunnel syndrome that has been unresponsive to nonoperative management. The risks and benefits of operative treatment including but not limited to risk of damage to blood vessels, nerves, tendons, infection, persistent pain, persistent symptoms, or possible need for additional surgery were discussed with the patient and the patient wishes to proceed with surgery. Procedure: Once consent was obtained a local block was performed using a combination of 1% lidocaine with epinephrine. The patient was then brought back to the operating suite and placed on the operative table in supine position. The right upper extremity was prepped and draped in a standard surgical fashion. Once assured that we had a good block, a 2.0 cm longitudinal incision was made centered over the carpal tunnel. The incision was made through the skin to the subcutaneous tissues using a #15 blade. Dissection was made down to the level of the transverse carpal ligament with care being taken to protect the palmar cutaneous nerve. Once the transverse carpal ligament was clearly visualized, a longitudinal incision was made in the transverse carpal ligament 1st using a #15 blade, then using tenotomy scissors under direct visualization. Care was taken to look for and protect the motor branch of the median nerve when seen in this area. Once satisfied with our carpal tunnel release the wound was copiously irrigated with normal saline and hemostasis was obtained with a brief period of local pressure. The skin edges were reapproximated with some 5.0 nylon suture material and a sterile dressing was applied. The patient appears to have tolerated the procedure well and with no complications. All digits were well vascularized at the conclusion of the case.
--- NOTE | 2025-07-12 13:48 | MHC.SHP ---
Pre-Procedural Eval Section A - 24 Hr Update-Section A only Date of Service: 07/12/25 The patient is an INPATIENT: No Changes since office visit: No Cold of Flu in the past 2 weeks, No New Medical Problems, No Changes in Medication and No Patient answered all questions The patient has been examined within 24 hours of the surgical procedure. The History & Physical has been completed within 30 days and I have reviewed it.: Yes Section B - Complete if H&P > 30 days Chief Complaint: Carpal tunnel syndrome, right upper limb Allergies: Allergies Allergy/AdvReac Type Severity Reaction Status Date / Time lisinopril Allergy Unknown shortness Verified 06/07/25 09:45 of breath coconut Allergy Unknown diarrhea, Uncoded 06/07/25 09:45 vomiting Plan Diagnosis/Plan: Unchanged I have reviewed the history and physical and performed a pertinent physical examination on my patient. No changes have occurred unless specified. Time Spent With Patient Time: Total time managing care of this patient today ____ minutes.
[2025-07-12 16:17] VITALS: BP 132/72; PULSE 87; RESP 16; O2SAT 95
== END 2025-07-12 16:49 | disposition home or self-care (01) ==
PROVIDERS: PCP Physician Assistant; Visit Provider Orthopaedic Surgery
PROC: (CPT 64721; principal; 2025-07-12 14:30)
DX: G56.01 Carpal tunnel syndrome, right upper limb (principal); R20.0 Anesthesia of skin; R20.2 Paresthesia of skin; I10 Essential (primary) hypertension; E03.9 Hypothyroidism, unspecified; K21.9 Gastro-esophageal reflux disease without esophagitis; K58.9 Irritable bowel syndrome, unspecified; F32.A Depression, unspecified; Z88.8 Allergy status to other drugs, medicaments and biological substances; Z90.49 Acquired absence of other specified parts of digestive tract; Z98.890 Other specified postprocedural states
CPT/HCPCS: 64721; J0165; J2003

== ENCOUNTER → 2025-07-12 11:28 | Outpatient (BNV) | payer OTHER, SELFPAY | PROVIDERS: PCP Physician Assistant; Visit Provider Orthopaedic Surgery | DX: G56.01 Carpal tunnel syndrome, right upper limb (principal) | CPT/HCPCS: 64721 ==

== ENCOUNTER 2025-07-24 14:04 | Outpatient (AMB) | payer OTHER, SELFPAY ==
--- NOTE | 2025-07-24 14:51 | MHC.OFFVIS ---
Vital Signs 07/24/25 14:52 Height 5 ft Weight 165 lb BMI 32.2 Intake Visit Reasons: PO RT CTR 07/12/25 AR Intake Note: Leny 69 yr old right hand dominant female presents today for her p/o visit for her right CTR done with Dr Godoy on 07/12/25. Sutures removed in office and steri strips applied. States symptoms have resolved. She is having a little spasm in her middle finger. Allergies lisinopril Allergy (Unknown, Verified 07/24/25 14:57) shortness of breath coconut Allergy (Unknown, Uncoded 07/24/25 14:57) diarrhea, vomiting HPI HPI PO RT CTR 07/12/25 AR: Details: Leny is a 69 year old right hand dominant woman who returns S/P right carpal tunnel release, DOS: 07/12/25. She says she is doing well and her sensation is normal, except for some occasional tingling in her middle finger. She denies any numbness in her left hand. She denies any locking or catching of her left ring finger PFSH Medical History GERD (gastroesophageal reflux disease) Depression Cough HTN (hypertension) IBS (irritable bowel syndrome) Hypothyroid Abnormal CT of the abdomen Surgical History Hx of section History of esophagogastroduodenoscopy (EGD) Hx of colonoscopy History of cholecystectomy History of hernia repair Family History Father Stomach cancer Skin cancer Mother Stroke Diabetes Hypertension Past heart attack Sister Diabetes Daughter Colon cancer Social History Housing: House Are you a primary childbirth and infant care teacher to a significant other at home: No Do you presently have visiting nurse or other home services: No Alcohol intake: never Patient Tobacco Use Status: Never used Tobacco Tobacco use type: Cigarette e-Cigarette/Vaping Use: Never Used Second Hand Smoke Exposure: No service: No Current occupational status: retired Current occupation: right hand dominant Cognitive needs: No Hearing needs: No Vision needs: Yes (Pt wears glasses.) Review of Systems Const All systems reviewed & are unremarkable except as noted in HPI and below Physical Exam Vital Signs: BMI result Body Mass Index 32.2 Const General: no acute distress and alert Orientation/consciousness: patient oriented x3 Neuro General: patient oriented x3 Extrem Other: The patient was alert oriented and in no acute distress The incision is healing well with no erythema drainage or evidence of infection. Sutures removed and Steri-Strips applied She can make a fist and extend all her digits Sensation is intact to all digits today in clinic Cap refill is brisk Nerve Conduction study: IMPRESSION: 1. This is an abnormal study. 2. There is electrodiagnostic evidence for bilateral moderate-severe median neuropathy at the wrist, consistent with carpal tunnel syndrome. 3. There is no electrodiagnostic evidence for ulnar neuropathy, brachial plexopathy, or cervical radiculopathy. Thank you for your kind referral. Holly Canales MD, FANY 05/18/25 Psych Appearance: grossly normal Affect: normal affect Attitude: cooperative Assessment & Plan Assessment & Plan (1) Bilateral carpal tunnel syndrome: Code(s): G56.03 - Carpal tunnel syndrome, bilateral upper limbs Category: Medical Plan Assessment & Plan: 1. Right carpal tunnel syndrome, S/P release DOS: 07/12/25 Pre-operative symptoms intermittent, but daily, worse at night Now with normal sensation The patient appears to be doing well post-operatively I educated her about the post-operative course I explained the signs and symptoms of infection, if the patient develops any new or worsening erythema, drainage, pain, or warmth they should contact the clinic or attend the ED. I discussed activity modifications, she is to lift nothing heavier than a cellphone for the next 2 weeks. They should also avoid any heavy impact activities, falls, or sports activities for the next 2 weeks She will perform gentle ROM exercises at home She should avoid any underwater activities for the next 5 days She should gently massage about the incision site to reduce the risk of hypersensitivity 2. Left carpal tunnel syndrome, moderate-severe symptoms intermittent, and occasional throughout the week 3. Left ring finger trigger finger No complaints today Patient is not interested in treatment at this time I encouraged her not to wait too long to have her carpal tunnel on the left side taken care of. Otherwise she can follow up PRN Scribed for Gertrude Godoy MD by Buddy Palmer, medical record retrieval specialist, on 07/24/25 at 2:55 PM, EST. Coding Level of Care Code Global (88350) Diagnoses Bilateral carpal tunnel syndrome G56.03
[2025-07-24 14:52] VITALS: BMI 32.2
--- OUTSIDE RECORDS SUMMARY | 2025-07-24 17:20 | XMS_ITS | Clinical Summary ---
Author Organization [employer] Address [address] [place] [address] [address] [place] [address] Care Team Providers Care Fusing Machine Tender Name Role Phone Unavailable Primary Care Provider [...] of 2) 2006 COVID-19 Vaccine (4 - 2024-2 6 season) 2025 10/28/2022, 09/29/2021, 01/25/2021 Influenza Vaccine (#1) 2025 [...] patient's age to complete this topic Insurance [facility]
--- OUTSIDE RECORDS SUMMARY | 2025-07-24 17:20 | XMS_ITS | Patient Health Record ---
Author Organization [facility] Address [address] [place] [id number] Care Team Providers Care Nuclear Physicist Name Role Phone Geronimo Huynh Jr [phone] Reason For Referral No Information Plan Of Treatment No Information
== END 2025-07-24 14:59 | disposition home or self-care (01) ==
LOC: HO.HOS 14:05
PROVIDERS: PCP Physician Assistant; Visit Provider Orthopaedic Surgery
DX: G56.03 Carpal tunnel syndrome, bilateral upper limbs (principal)
CPT/HCPCS: 99024

== ENCOUNTER → 2025-07-24 14:04 | Outpatient (BNVA) | payer OTHER, SELFPAY | PROVIDERS: PCP Physician Assistant; Visit Provider Orthopaedic Surgery | DX: G56.03 Carpal tunnel syndrome, bilateral upper limbs (principal) | CPT/HCPCS: 99212 ==